=== PATIENT | female | born 1980 | race Caucasian/White ===

== ENCOUNTER 2019-07-30 11:09 | Emergency (ER) | payer OTHER, SELFPAY ==
--- NOTE | ~2019-07-30 | CT_ITS ---
EXAMINATION: CT abdomen pelvis wo con DATE: 07/30/2019 12:08 INDICATION: Right flank pain. Dysuria. History of renal stones. TECHNIQUE: Computed tomography (CT) of the abdomen and pelvis was performed without intravenous contr ast. The dose-length product was 221.69 mGy-cm. Automated exposure control and iterative reconstructi on technique were employed. COMPARISON: CT dated 06/14/2017 FINDINGS: Lung bases unremarkable. Heart size normal. No significant pleural or pericardial effusion. Fatty infiltration of the liver. Status post cholecystectomy. There is a 5 mm right UVJ stone with mi ld hydronephrosis. There are nonobstructing bilateral renal stones. The spleen, pancreas, adrenal gla nds are unremarkable. Nonobstructive bowel gas pattern. No abnormal pelvic masses or fluid collections. No free air or free fluid. Small fat-containing umbilical hernia. No significant vascular abnormality. No lymphadenopath y. No acute osseous abnormality. IMPRESSION: 1. 5 mm right UVJ stone with mild hydronephrosis. 2: Bilateral nephrolithiasis. 3: Hepatic steatosis. Reviewed, dictated and finalized at location A. RNMENT EMPLOYEE
[2019-07-30 11:11] VITALS: BP 149/67; PULSE 78; RESP 20; TEMP 36.4; O2SAT 100
[2019-07-30 11:37] LABS: Basophils Absolute Auto 0.1 K/mm3 (0.0-0.1); Basophils Percent Auto 0.7 % (0.2-1.2); Eosinophils Absolute Auto 0.1 K/mm3 (0-0.3); Eosinophils Percent Auto 1.9 % (0-4.4); Hematocrit 41.6 % (37.0-47.0); Hemoglobin 13.6 g/dL (12.0-15.0); Immature Granulocyte Absolute 0.03 K/mm3 (0.00-0.031); Immature Granulocyte Percent A 0.4 % (0-0.5); Lymphocytes Absolute Auto 2.49 K/mm3 (0.9-3.2); Lymphocytes Percent Auto 33.7 % (18.3-44.2); Mean Corpuscular HGB Conc 32.7 g/dl (32-36); Mean Corpuscular Volume 82.7 fl (80-100); Mean Platelet Volume 9.8 fl (7.4-10.4); Monocytes Absolute Auto 0.5 K/mm3 (0.1-0.6); Monocytes Percent Auto 6.9 % (2.6-8.5); Neutrophils Absolute Auto 4.2 K/mm3 (1.3-6.7); Neutrophils Percent Auto 56.4 % (45.5-73.1); Platelet Count Result 217 k/mm3 (150-375); Red Blood Count 5.03 M/mm3 (4.2-5.4); Red Cell Distribution Width 14.2 % (11.5-14.5); White Blood Count 7.4 K/mm3 (4.5-10.0)
[2019-07-30 11:46] LABS: Add Urine Microscopic? YES; Appearance Urine Clear (Clear); Bacteria Urine Trace /hpf; Bilirubin Urine Negative (Negative); Blood Urine 3+ (Negative); Color Urine Yellow (Yellow); Glucose Urine UA Negative (Negative); Ketones Urine Negative (Negative); Leukocyte Esterase Ur Negative LEU/UL (Negative); Mucus Urine Rare /lpf; Nitrate Urine Negative (Negative); Protein Urine Negative (Negative); Squamous Epithelial Cell Urine Occasional /hpf (Few); Urobilinogen Urine Negative mg/dL (<2.0); WBC Urine 0-3 /hpf
[2019-07-30 11:48] LABS: Blood Urea Nitrogen 10 mg/dL (7-17); Calcium 9.9 mg/dL (8.4-10.2); Carbon Dioxide 25 mmol/L (22-30); Chloride 103 mmol/L (98-107); Estimated CRCL calculation 138 ml/min; Estimated Glomerular Filt Rate > 60; Glucose 90 mg/dL (65-105); Potassium 3.7 mmol/L (3.4-5.0); Sodium 141 mmol/L (137-145)
--- NOTE | 2019-07-30 12:13 | ED.BACK ---
HPI - Back Pain/Injury General Chief Complaint: Urogenital-Female <Roslyn Kearney PA-C - Last Filed: 07/30/19 14:17> Stated Complaint: R flank pain <Roslyn Kearney PA-C - Last Filed: 07/30/19 14:17> Time Seen by Provider: 07/30/19 11:24 <Rolsyn Kearney PA-C - Last Filed: 07/30/19 14:17> Source: patient <Roslyn Kearney PA-C - Last Filed: 07/30/19 14:17> Mode of arrival: ambulatory <Roslyn Kearney PA-C - Last Filed: 07/30/19 14:17> Limitations: no limitations <Roslyn Kearney PA-C - Last Filed: 07/30/19 14:17> History of Present Illness HPI Narrative: This is a 38 year old female that presents to the ER for right flank pain since this morning. Reports sharp pain in the right flank. Reports since onset it has calmed down, but is still present. Reports urinary frequency and hesitancy. Denies fever, abdominal pain, vomiting, or hematuria. <Roslyn Kearney PA-C - Last Filed: 07/30/19 14:17> Related Data Allergies/Adverse Reactions: Allergies Allergy/AdvReac Type Severity Reaction Status Date / Time No Known Allergies Allergy Unverified 06/14/17 15:10 <Roslyn Kearney PA-C - Last Filed: 07/30/19 14:17> Review of Systems Review of Systems: Narrative: CONSTITUTIONAL: Denies fever GASTROINTESTINAL: Denies abdominal pain, nausea, vomiting GENITOURINARY: Reports dysuria. Denies hematuria. MUSCULOSKELETAL: Reports back pain <Roslyn Kearney PA-C - Last Filed: 07/30/19 14:17> All systems reviewed & are unremarkable except as noted in HPI and below <Roslyn Kearney PA-C - Last Filed: 07/30/19 14:17> [facility] Past Medical History Medical History: Medical History (Updated 07/30/19 @ 14:08 by Roslyn Kearney PA-C) History of anxiety <Roslyn Kearney PA-C - Last Filed: 07/30/19 14:17> Family History Family History: Family History (Updated 01/09/16 @ 14:18 by DOCTOR UNKNOWN) Mother Hypertension Family history of kidney stones Father Cerebrovascular accident Family history of type 2 diabetes mellitus Grandparent Cerebrovascular accident Family history of malignant neoplasm of breast Other Family history of allergic disorder Family history of malignant neoplasm <Roslyn Kearney PA-C - Last Filed: 07/30/19 14:17> Social History Social History: Social History Smoking status: Never smoker Alcohol intake: current <BERNADETTE Devine Last Filed: 07/30/19 14:17> Exam Narrative: Exam Narrative: GENERAL: Well-appearing, well-nourished, and in no acute distress. HEAD: Normocephalic, atraumatic. EYES: EOMI. CHEST: Clear to auscultation. No respiratory distress. No wheezes rales or rhonchi HEART: Regular rate and rhythm. No murmur heard. Normal peripheral pulses. ABDOMEN: Soft, nontender, nondistended, normal active bowel sounds. No CVA tenderness EXTREMITIES: Normal range of motion. No edema. SKIN: Warm, dry, no rash. NEURO: No focal deficits. Alert and oriented x3. PSYCH: Normal mood and affect <BERNADETTE Devine Last Filed: 07/30/19 14:17> Course Consultations Consultation #1: Spoke with urology about patient and work-up who came to the ED to see patient. Patient decided she would like to go home with pain control and follow-up outpatient <Roslyn Kearney PA-C - Last Filed: 07/30/19 14:17> Date: 07/30/19 <BERNADETTE Devine Last Filed: 07/30/19 14:17> Time: 14:16 <BERNADETTE Devine Last Filed: 07/30/19 14:17> Vital Signs Vital signs: Vital Signs Temperature 97.6 F 07/30/19 11:11 Pulse Rate 78 07/30/19 11:11 Respiratory Rate 20 07/30/19 11:11 Blood Pressure 149/67 H 07/30/19 11:11 Pulse Oximetry 100 07/30/19 11:11 Temperature 97.6 F 07/30/19 11:11 Pulse Rate 84 07/30/19 13:59 Respiratory Rate 17 07/30/19 13:59 Blood Pressure 135/84 07/30/19 13:59 Pulse Oximetry 98 07/30/19 13:59 <Roslyn Kearney PA-C - Last Filed: 07/30/19 14:17
[2019-07-30] MEDS: SODIUM CHLORIDE 0.9% IV 500 ML 999 ML IV CONT (12:38)
[2019-07-30 13:59] VITALS: BP 135/84; PULSE 84; RESP 17; O2SAT 98
== END 2019-07-30 14:30 | disposition home or self-care (01) ==
PROVIDERS: Emergency Provider General Practice; PCP Family Medicine
DX: N13.2 Hydronephrosis with renal and ureteral calculous obstruction (principal); K76.0 Fatty (change of) liver, not elsewhere classified
CPT/HCPCS: 36415; 74176; 80048; 81001; 81025; 85025; 96374; 99284; J0131; J7040

== ENCOUNTER 2019-08-02 13:06 | Outpatient (CLI) | payer OTHER, SELFPAY ==
--- NOTE | ~2019-08-02 | XR_ITS ---
EXAMINATION: XR abdomen/kub 1V INDICATION: Right ureteral stone TECHNIQUE: Supine views of the abdomen were obtained on 2 radiographs. COMPARISON: CT, 07/30/2019 FINDINGS: There is a 5 mm calcification of the right pelvis at the expected location of the right ure terovesicular junction corresponding to the stone described on the comparison CT. Phleboliths are not ed in the pelvis. Cholecystectomy clips are present in the right upper quadrant. There is a moderate volume of colonic stool. The bowel gas pattern is normal. IMPRESSION: 1. 5 mm calcification of the right pelvis at the expected location of the right ureterovesicular junc tion. Reviewed, dictated and finalized at location A. STRIPPER IMPRESSION: 1. 5 mm calcification of the right pelvis at the expected location of the right ureterovesicular junction.
== END 2019-08-02 13:07 | disposition home or self-care (01) ==
PROVIDERS: PCP Family Medicine; Visit Provider Urology
DX: N20.1 Calculus of ureter (principal)
CPT/HCPCS: 74018

== ENCOUNTER 2019-08-10 02:26 | Day surgery (SDC) | payer OTHER, SELFPAY ==
[2019-08-08 10:59] VITALS: BMI 29.0
--- NOTE | ~2019-08-10 | CT_ITS ---
EXAMINATION: CT abdomen pelvis wo con DATE: 08/10/2019 13:13 INDICATION: Right ureteral stone. TECHNIQUE: Computed tomography (CT) of the abdomen and pelvis was performed without intravenous contr ast. Automated exposure control and iterative reconstruction technique were employed. The dose-length product was 228.12 mGy-cm. COMPARISON: CT abdomen and pelvis 07/30/2019 FINDINGS: The visualized portions of the lung bases demonstrate mild atelectasis. No pleural effusion . The heart size is normal. No pericardial effusion. There is diffuse hepatic steatosis. There are ch anges of cholecystectomy. The spleen, pancreas, and adrenal glands are normal. There is a 3 mm stone in right kidney lower pole. There is a 3 mm stone in left kidney. The ureters and bladder are normal. There is diverticulosis of the colon without evidence of diverticulitis. There are no dilated loops of bowel. The appendix is not visualized. The inferior vena cava is duplicated. There are no patholog ically enlarged lymph nodes. There is no free intraperitoneal fluid. There is mild thoracic spondylos is. IMPRESSION: 1. Small bilateral nonobstructing kidney stones. 2. Diffuse hepatic steatosis. Reviewed, dictated and finalized at location A. E BLOCK ROLLER
--- NOTE | ~2019-08-10 | XR_ITS ---
EXAMINATION: XR abdomen/kub 1V DATE: 08/10/2019 12:57 INDICATION: Bladder stone. TECHNIQUE: A supine view of the abdomen was obtained. COMPARISON: Abdomen radiographs 08/02/2019, CT abdomen and pelvis 07/30/2019 FINDINGS: There are no dilated loops of bowel. There are phleboliths in the pelvis. The kidneys are o bscured by bowel. There is a 3 mm stone in right kidney lower pole. IMPRESSION: 1. 3 mm stone in right kidney lower pole. Reviewed, dictated and finalized at location A. ASSISTANT
--- NOTE | 2019-08-10 06:37 | WPDHPUPDATE1 ---
History and Physical Update Update Date/Time: 08/10/19 06:37 History and Physical has been reviewed, including an updated exam of the patient. There are NO changes in the patient's condition. Risks, benefits, and alternatives have been discussed and questions answered. Patient agrees to proceed with procedure.
--- NOTE | 2019-08-10 08:18 | WPDANESEPPF ---
Anes - Initial Pre Proc Eval Procedure: Operation Date: 08/10/19 13:30 Proposed Procedures p Cystoscopy, Right Ureteroscopy with Stone Extraction - Hasmukh Mcfarland MD Date/Time: 08/10/19 08:18 Surgeon: Hasmukh Mcfarland MD Pre Op Diagnosis: Right Ureteral Stone Patient Data Age: 38 Gender: F Height: 1.68 m Weight: 81.65 kg Allergies Allergy/AdvReac Type Severity Reaction Status Date / Time No Known Allergies Allergy Unverified 08/08/19 11:01 Home Medications Medication Instructions Recorded Confirmed Type hydrocodone-acetaminophen 1 tablet PO Q8H PRN #20 tablet 07/30/19 08/08/19 Rx ondansetron 4 mg PO Q8H PRN #10 tablet 07/30/19 08/08/19 Rx L.acid-L.casei-B.bif-B.jose alberto-FOS 1 cap PO DAILY 08/08/19 08/08/19 History [Probiotic Blend] cholecalciferol (vitamin D3) 6,000 mcg PO DAILY 08/08/19 08/08/19 History [Vitamin D3] 21-iron fu-folic acid 1 tablet PO DAILY 08/08/19 08/08/19 History [ Complete] sertraline 150 mg PO DAILY 08/08/19 08/08/19 History Patient hx anesthesia problems: none Family hx anesthesia problems: none PMFSH Past Medical History Medical History (Updated 08/10/19 @ 12:30 by Francisco Javier Lopez MD) History of anxiety Hypercholesterolemia Kidney stones, calcium oxalate Overweight (BMI 25.0-29.9) Family History Family History (Updated 01/09/16 @ 14:18 by DOCTOR UNKNOWN) Mother Hypertension Family history of kidney stones Father Cerebrovascular accident Family history of type 2 diabetes mellitus Grandparent Cerebrovascular accident Family history of malignant neoplasm of breast Other Family history of allergic disorder Family history of malignant neoplasm Social History Social History Smoking status: Never smoker Alcohol intake: current Anes - Eval Final PreProcedure Day of Procedure 08/10/19 08:18 Patient weight: overweight Heart: regular rate and rhythm Lungs: clear to auscultation and normal air movement Airway: Mallampati scale class II Neurological: alert and oriented Last oral intake: >/= 8 hours ASA classification: II Emergent: no Anesthetic plan: proceed Anesthesia type and monitoring: general LMA Informed Consent: The patient's anesthetic plan and its attendant risks and benefits were discussed with the patient/family/POA. Questions were solicited and answers provided to the satisfaction of the patient/family/POA.
[2019-08-10] MEDS: LACTATED RINGERS 1,000 ML 30 ML IV CONT (12:32)
[2019-08-10 12:54] VITALS: BP 108/55; PULSE 73; RESP 20; TEMP 37.2; O2SAT 96
--- NOTE | 2019-08-10 12:59 | SUR.PREOP ---
1250- dr. bhatti ordered a KUB in pre op. awaitng results
--- NOTE | 2019-08-10 13:30 | SUR.PREOP ---
1320- DR. RAMIREZ STATED PT CAN BE CANCELLED, CT SHOWED THAT PT HAS PASSED STONE. PT AND UPDATED PER DR. RAMIREZ. 1330- LT AC PIV DC'ED, CATH INTACT. PT UP TO GET DRESSED
== END 2019-08-10 13:42 | disposition home or self-care (01) ==
PROVIDERS: PCP Family Medicine; Visit Provider Urology
PROC: (CPT 52352; principal; 2019-08-10 13:30)
DX: N20.0 Calculus of kidney (principal); Z53.8 Procedure and treatment not carried out for other reasons
CPT/HCPCS: 74018; 74176; 99212; A9270; G0463; J2250; J3010; J7120

== ENCOUNTER 2020-01-05 10:51 | Outpatient (CLI) | payer OTHER, SELFPAY ==
--- NOTE | ~2020-01-05 | XR_ITS ---
EXAMINATION: XR abdomen/kub 1V DATE: 01/05/2020 11:09 INDICATION: Left flank pain. Hematuria. TECHNIQUE: A supine view of the abdomen on 2 radiographs was obtained. COMPARISON: CT abdomen and pelvis 08/10/2019 FINDINGS: There are no dilated loops of bowel. There is a 3 mm stone in right kidney lower pole. Surg ical clips in the right upper quadrant are likely from cholecystectomy. There are phleboliths in the pelvis. IMPRESSION: 1. 3 mm right kidney stone. Reviewed, dictated and finalized at location A. IMPRESSION: 1. 3 mm right kidney stone.
== END 2020-01-05 10:52 | disposition home or self-care (01) ==
LOC: ANHIMG 10:53
PROVIDERS: PCP Family Medicine; Visit Provider Urology
DX: N20.0 Calculus of kidney (principal)
CPT/HCPCS: 74018

== ENCOUNTER 2020-01-17 13:40 | Outpatient (CLI) | payer OTHER, SELFPAY ==
--- NOTE | ~2020-01-17 | XR_ITS ---
XR abdomen/kub 1V DATE: 01/17/2020 13:55 INDICATION: Gross hematuria TECHNIQUE: AP projection, 2 views COMPARISON: 01/05/2020 KUB FINDINGS: Surgical clips, right upper quadrant, consistent with cholecystectomy. A small calcification overlies the approximate lower pole of each kidney suggesting bilateral nonobst ructing kidney stones, corresponding to a small nonobstructing calculus of each kidney on 08/10/2019 CT abdomen pelvis examination. There is a transitional lumbosacral vertebra. IMPRESSION: Bilateral nonobstructing renal calculi Reviewed, dictated and finalized at Location A. Reviewed, dictated and finalized at location A.
--- NOTE | ~2020-01-17 | CT_ITS ---
EXAMINATION: CT abdomen pelvis wo/w con EXAM DATE: 01/17/2020 14:19 INDICATION: Gross hematuria. TECHNIQUE: Spiral CT of the abdomen and pelvis was performed without contrast. The patient was then injected with small bolus intravenous Omnipaque 350, followed by delay of approximately 10 minutes to allow collecting system to opacify. A post contrast scan abdomen and pelvis was performed during inj ection of remaining contrast. A total of 130 cc intravenous contrast was administered. The dose-anita th product (DLP) for this examination was 1778.46 mGy-cm. The exposure was tailored according to pat ient size (auto mA exposure control), and iterative reconstruction (ASIR) was used as additional dose reduction technique. Comparison is made to prior examination from 08/10/2019. FINDINGS: There is 4 mm stone in the right inferior calyces, and a 3 mm stone in the left mid calyces . There are no ureteral stones. The kidneys enhance symmetrically. There are no suspicious renal le sions. The calyces and opacified portions of ureters are unremarkable, without filling defects or fo kimberli suspicious strictures. The bladder is unremarkable. The uterus and ovaries are unremarkable, no adnexal mass. There is hepatic steatosis without suspicious focal lesion identified. Spleen, adrenal glands, pancre as are unremarkable. There are cholecystectomy clips. There is no retroperitoneal or pelvic lymphad enopathy. 22 The appendix is not positively visualized. There is no pericecal inflammatory change to suggest appe ndicitis. The stomach and small bowel are unremarkable. There is expected amount of colonic stool. No free intraperitoneal gas. The heart is normal in size. There are no pericardial or pleural e ffusions. Left basilar granuloma unchanged. The bones are unremarkable. IMPRESSION: 1. Small stone in each kidney. 2. Hepatic steatosis. Reviewed, dictated and finalized at location A.
== END 2020-01-17 13:41 | disposition home or self-care (01) ==
LOC: ANHIMG 13:41
PROVIDERS: PCP Family Medicine; Visit Provider Urology
DX: R31.0 Gross hematuria (principal); K76.0 Fatty (change of) liver, not elsewhere classified; N20.0 Calculus of kidney
CPT/HCPCS: 74018; 74178; Q9967

== ENCOUNTER 2020-03-30 08:51 | Emergency (ER) | payer OTHER, SELFPAY ==
--- NOTE | ~2020-03-30 | CT_ITS ---
EXAMINATION: CT abd pelvis lumbar wo con DATE: 03/30/2020 09:57 INDICATION: Low back pain and flank pain. Nephrolithiasis. TECHNIQUE: Computed tomography (CT) of the abdomen, pelvis and lumbar spine was performed without int ravenous contrast. Automated exposure control and iterative reconstruction technique were employed. T he dose-length product was 590.49 mGy-cm. COMPARISON: 01/17/2020 FINDINGS: Lung bases are clear. Heart size is normal. No pericardial or pleural effusion. Decreased attenuation of the blood pool relative to myocardium suggesting anemia. Diffuse hepatic steatosis. Cholecystecto my clips the gallbladder fossa. Borderline splenomegaly measuring 13.0 cm. Pancreas and bilateral adr enal glands are normal. Bilateral nephrolithiasis with 2 stones in the right kidney the larger measur ing 4 mm. Obstructing 3-4 mm stone at the left ureteropelvic junction with mild left hydronephrosis. Several unchanged phleboliths in the pelvis. Bladder is normal. Anteverted uterus and bilateral adnex a are normal. Tampon within the vaginal vault. No abnormal bowel wall thickening or obstruction. The appendix is not visualized. No pericecal inflammatory change to suggest acute appendicitis. No free i ntraperitoneal gas or fluid. No pathologically enlarged abdominal or pelvic lymphadenopathy. Mild low er thoracic spondylosis. IMPRESSION: 1. Lateral nephrolithiasis with obstructing 3-4 mm stone at the left ureteropelvic junction with mild left hydronephrosis. 2. Diffuse hepatic steatosis. Reviewed, dictated and finalized at location A. IMPRESSION: 1. Lateral nephrolithiasis with obstructing 3-4 mm stone at the left ureteropel lawanda junction with mild left hydronephrosis. 2. Diffuse hepatic steatosis.
[2020-03-30 09:09] VITALS: BP 134/76; PULSE 74; RESP 16; TEMP 36.6; O2SAT 98
[2020-03-30 09:27] LABS: Add Urine Microscopic? YES; Appearance Urine Sl Cloudy (Clear); Bilirubin Urine Negative (Negative); Blood Urine 3+ (Negative); Color Urine Yellow (Yellow); Glucose Urine UA Negative (Negative); Ketones Urine Negative (Negative); Leukocyte Esterase Ur Negative (Negative); Nitrate Urine Negative (Negative); Protein Urine 1+ (Negative); Specific Grav Ur >= 1.030 (1.010-1.020); Urobilinogen Urine 0.2 mg/dL (0.2-1.0); pH Urine 5.5 (5.0-8.0)
[2020-03-30 09:28] LABS: Pregnancy On Board Control Positive; Urine Pregnancy Test Negative
[2020-03-30 09:31] LABS: Bacteria Urine 1+ /hpf; RBC Urine 21-50 /hpf (0-2); Squamous Epithelial Cell Urine Few /hpf (Few); WBC Urine None seen /hpf (0-3)
[2020-03-30 09:32] LABS: Mucus Urine Moderate /lpf
[2020-03-30] MEDS: KETOROLAC 30 MG/ML VIAL (*BKC) IV PUSH (09:36)
[2020-03-30] MEDS: ONDANSETRON INJ 4 MG/2 ML VIAL IV PUSH (09:36)
[2020-03-30] MEDS: SODIUM CHLORIDE 0.9% IV 1,000 ML 999 ML IV CONT (09:37)
[2020-03-30 09:43] LABS: Hematocrit 38.8 % (35.0-49.0); Hemoglobin 12.8 g/dL (12.0-15.0); Mean Corpuscular Hemoglobin 27.8 pg (27.0-31.0); Mean Corpuscular Volume 84.2 fL (78.0-102.0); Mean Platelet Volume 9.5 fl (9.2-11.8); Platelet Count Result 182 K/mm3 (150-420); Red Blood Count 4.61 M/mm3 (4.20-5.40); Red Cell Distribution Width 13.2 % (11.6-14.4); White Blood Count 8.4 K/mm3 (4.8-10.8)
[2020-03-30 10:03] LABS: Alanine Aminotransferase 44 U/L (14-59); Albumin Level 3.9 g/dL (3.4-5.0); Alkaline Phosphatase 71 U/L (46-116); Anion Gap 11 mmol/L (8-16); Aspartate Amino Transferase 26 U/L (15-37); Bilirubin,Total 0.5 mg/dL (0.00-1.00); Blood Urea Nitrogen 9 mg/dL (7-18); Calcium 8.6 mg/dL (8.5-10.1); Carbon Dioxide 25 mmol/L (21-32); Chloride 104 mmol/L (98-108); Estimated CRCL calculation 88 ml/min; Estimated Glomerular Filt Rate > 60; Glucose 134 mg/dL (70-99); Osmolality Calculated 290 mOsm/kg (285-295); Potassium 3.2 mmol/L (3.5-5.1); Sodium 140 mmol/L (136-145); Total Protein 7.3 g/dL (6.4-8.2)
--- NOTE | 2020-03-30 10:23 | ED.GENADULT ---
HPI - General Adult General Chief complaint: Unspecified Stated complaint: low back pain Source: patient Mode of arrival: ambulatory Limitations: no limitations History of Present Illness HPI narrative: This is a 39-year-old female presents with left flank pain radiating into her left groin area, patient did have a fall 2 or 3 days ago and has some mild swelling in her left lower back area, but currently is having a 6/10 left flank pain with no dysuria with some hesitancy and currently no hematuria no fever chills. Patient has a history of kidney stones, has seen urologist in the past and the stones were not large enough for any further intervention at that time. Patient does have some nausea with no episodes of vomiting does have a tender low left flank pain with some no diarrhea constipation no chest pain no shortness of breath. Onset (ago): hour(s) Location: left Radiation: back Severity: moderate Severity scale (1-10): 6 Quality: aching Relieving factors: immobilization Exacerbating factors: movement Associated symptoms: nausea/vomiting Treatments prior to arrival: NSAID Related Data Home Medications Medication Instructions Recorded Confirmed Complete 1 tablet PO DAILY 08/08/19 03/30/20 Probiotic Blend 1 cap PO DAILY 08/08/19 03/30/20 cholecalciferol (vitamin D3) 6,000 mcg PO DAILY 08/08/19 03/30/20 [Vitamin D3] sertraline [Zoloft] 150 mg PO DAILY 08/08/19 03/30/20 Allergies Allergy/AdvReac Type Severity Reaction Status Date / Time No Known Allergies Allergy Unverified 08/08/19 11:01 Review of Systems Review of Systems: All systems reviewed & are unremarkable except as noted in HPI and below PMFSH Past Medical History Medical History History of anxiety Hypercholesterolemia Kidney stones, calcium oxalate Overweight (BMI 25.0-29.9) Family History Family History Mother Hypertension Family history of kidney stones Father Cerebrovascular accident Family history of type 2 diabetes mellitus Grandparent Cerebrovascular accident Family history of malignant neoplasm of breast Other Family history of allergic disorder Family history of malignant neoplasm Social History Social History Smoking status: Never smoker Alcohol intake: current Gender identity (if verbalized by the patient): Female Exam Const: General: cooperative, healthy appearing and no acute distress HENMT: Head: normal to inspection Ears: hearing grossly normal bilaterally Throat: posterior oropharynx normal Eyes: General: appearance normal, both eyes and all related structures Eyelids: eyelids normal Conjunctivae: conjunctivae normal Neck: Neck: no JVD Lymphatic: no lymphadenopathy noted Resp: Effort & Inspection: normal respiratory effort and able to speak in complete sentences Auscultation: clear to auscultation bilaterally Cardio: Jugular venous distension: no JVD Palpation: normal PMI Rate: regular rate Rhythm: regular rhythm Heart sounds: S1 normal heart sound present and S2 normal heart sound present GI: Inspection: normal to inspection Back/Spine/Pelvis: Back: CVA tenderness ( Left flank tenderness with palpation) Skin: General skin exam: normal color and no rashes or lesions noted Extrem: General: normal to inspection, full ROM and capillary refill normal Psych: Appearance: grossly normal and well kempt Mental Status: mental status grossly normal Speech and movement: Normal speech and movement present Course Course Emergency Course: patient received IV Toradol and IV Zofran and rates her pain at a lower level at about a 2/10 feels more comfortable and explained that there is a 3 to 4 mm stone at the UVJ on the left and will discharge with home medications and discharge medications with advice to follow-up with her urologis
[2020-03-30 10:30] VITALS: BP 130/70; PULSE 70; RESP 18; TEMP 36.6; O2SAT 99
== END 2020-03-30 10:42 | disposition home or self-care (01) ==
PROVIDERS: Emergency Provider Emergency Medicine; PCP Family Medicine
DX: N20.1 Calculus of ureter (principal)
CPT/HCPCS: 36415; 72133; 74176; 80053; 81001; 81025; 85027; 96361; 96374; 96375; 99283; 99284; J1885; J2405; J7030

== ENCOUNTER 2021-01-15 13:59 | Emergency (ER) | payer MEDICAID, SELFPAY ==
--- NOTE | ~2021-01-15 | XR_ITS ---
EXAMINATION: CT abdomen pelvis wo con, XR abdomen/kub 1V DATE: 01/15/2021 15:32 INDICATION: Right-sided flank pain. Urolithiasis. TECHNIQUE: 1. Computed tomography (CT) of the abdomen and pelvis was performed without intravenous contrast. Aut omated exposure control and iterative reconstruction technique were employed. The dose-length product was 242.05 mGy-cm. 2. AP view of the abdomen and pelvis was obtained on 2 radiographs. COMPARISON: 03/30/2020 FINDINGS: CT: Stable appearance of a chronic small V-shaped nodule/cluster of nodules in the posterior basilar segm ent of the left lower lobe which can be seen dating back to 06/14/2017 Memo skull chronic infection and potentially a chronic mucus impacted bronchus. Heart size normal. No pericardial or pleural effusion. Diffuse hepatic steatosis. Cholecystectomy clips the gallbladder fossa. Spleen, pancreas and bilater al adrenal glands are normal. 5 x 3 mm at least partially obstructing stone in the mid right ureter a t the level of L5-S1 with mild right hydroureteronephrosis. No other evident urolithiasis either on t he right or in the normal left kidney and ureter . Bladder is normal. Uterus and bilateral adnexa are unremarkable with bilateral ovarian follicles the largest on the right measuring 1.4 cm. No free int raperitoneal gas or fluid. No pathologically enlarged abdominal or pelvic lymphadenopathy. Mild lower thoracic spondylosis. KUB: The mid right ureteral stone can be seen projecting over the right sacral ala slightly inferolateral to the level of the L5-S1 disc space. There are several phleboliths in the pelvis. Normal bowel gas p attern. Cholecystectomy clips in the right upper quadrant. IMPRESSION: 1. At least partially obstructing 5 x 3 mm right ureteral stone with mild right hydroureteronephrosis . 2. Diffuse hepatic steatosis. Reviewed, dictated and finalized at location A. IMPRESSION: 1. At least partially obstructing 5 x 3 mm right ureteral stone with mild right hydroureteronephrosis. 2. Diffuse hepatic steatosis.
--- NOTE | 2021-01-15 14:10 | ED.ABDPAIN ---
HPI - Abdominal Pain General Chief Complaint: Urogenital-Female Stated Complaint: Kidney Stone Time Seen by Provider: 01/15/21 14:14 Source: patient Mode of arrival: ambulatory Limitations: no limitations History of Present Illness HPI narrative: 40-year-old woman with history kidney stones comes in today complaining of right groin pain this started earlier today. Patient states that she has had nausea but no vomiting, fever, dysuria, hematuria. Her last episode was approximately 3 months ago. She has had multiple episodes. MD elicited complaint: abdominal pain Pertinent past history: kidney stones Onset (ago): hour(s) Pain Consistency: constant Location: RLQ Quality: sharp Migration to: no migration Exacerbating factors: nothing Relieving factors: nothing Associated symptoms: nausea Related Data Home Medications Medication Instructions Recorded Confirmed Complete 1 tablet PO DAILY 08/08/19 01/15/21 Probiotic Blend 1 cap PO DAILY 08/08/19 01/15/21 cholecalciferol (vitamin D3) 6,000 mcg PO DAILY 08/08/19 01/15/21 [Vitamin D3] sertraline [Zoloft] 150 mg PO DAILY 08/08/19 01/15/21 Allergies Allergy/AdvReac Type Severity Reaction Status Date / Time No Known Allergies Allergy Unverified 01/15/21 15:02 Review of Systems Review of Systems: All systems reviewed & are unremarkable except as noted in HPI and below Constitutional: Constitutional: Denies chills and Denies fever(s) Eyes: Eyes: Denies change in vision ENT: Denies nasal congestion and Denies sore throat Cardiovascular: Cardiovascular: Denies chest pain and Denies radiating jaw, neck or arm pain Respiratory: Respiratory: Denies cough, Denies dyspnea and Denies wheezing Gastrointestinal: Gastrointestinal: Reports abdominal pain, Denies diarrhea, Reports nausea and Denies vomiting Genitourinary: Genitourinary: Denies hematuria, Denies nocturia and Denies dysuria Musculoskeletal: Musculoskeletal: Denies back pain, Denies arthralgias and Denies joint swelling Integumentary/Breasts: Skin/Breast: Denies pruritus, Denies erythema and Denies rash Neurologic: Denies dizziness, Denies syncope, Denies headache(s) and Denies focal weakness Hematologic/Lymphatic: Hematologic/Lymphatic: Denies easy bleeding and Denies easy bruising Allergic/Immunologic: Allergic/Immunologic: Denies lip swelling and Denies throat swelling [facility] Past Medical History Medical History History of anxiety Hypercholesterolemia Kidney stones, calcium oxalate Overweight (BMI 25.0-29.9) Surgical History Surgical History History of History of mandibular surgery History of shoulder surgery Hx laparoscopic cholecystectomy S/P appendectomy Family History Family History Mother Hypertension Family history of kidney stones Father Cerebrovascular accident Family history of type 2 diabetes mellitus Grandparent Cerebrovascular accident Family history of malignant neoplasm of breast Other Family history of allergic disorder Family history of malignant neoplasm Social History Social History Smoking status: Never smoker Alcohol intake: current Gender identity (if verbalized by the patient): Female Sexual Orientation (if Verbalized by the Patient): Straight or Heterosexual Exam Const: General: healthy appearing and alert Orientation/consciousness: patient oriented x3 Limitations: no limitations Other: Moderate acute distress HENMT: Head: normal to inspection Face and sinus: normal facial exam Eyes: Conjunctivae: conjunctivae normal Pupils: Equal, round and reactive pupils present EOM: EOMs intact bilaterally Resp: Effort & Inspection: normal respiratory effort and not labored Auscultation: clear to auscultation b
[2021-01-15 14:36] LABS: Basophils Absolute Auto 0.04 K/mm3 (0.00-0.10); Basophils Percent Auto 0.5 % (0.0-1.0); Eosinophils Absolute Auto 0.17 K/mm3 (0.02-0.50); Hematocrit 40.1 % (35.0-49.0); Hemoglobin 13.3 g/dL (12.0-15.0); Immature Granulocyte Absolute 0.04 K/mm3 (0.00-0.00); Immature Granulocyte Percent A 0.5 % (0.0-0.0); Lymphocytes Absolute Auto 2.64 K/mm3 (1.10-4.50); Lymphocytes Percent Auto 31.7 % (18.0-42.0); Mean Corpuscular HGB Conc 33.2 g/dL (32.0-36.0); Mean Corpuscular Hemoglobin 28.2 pg (27.0-31.0); Mean Platelet Volume 9.5 fl (9.2-11.8); Monocytes Absolute Auto 0.56 K/mm3 (0.10-0.90); Monocytes Percent Auto 6.7 % (2.0-11.0); Neutrophils Absolute Auto 4.9 K/mm3 (1.7-7.2); Neutrophils Percent Auto 58.6 % (50.0-70.0); Platelet Count Result 248 K/mm3 (150-420); Red Blood Count 4.72 M/mm3 (4.20-5.40); Red Cell Distribution Width 13.7 % (11.6-14.4); White Blood Count 8.3 K/mm3 (4.8-10.8)
[2021-01-15 14:43] LABS: Add Urine Microscopic? YES; Appearance Urine Clear (Clear); Bilirubin Urine Negative (Negative); Blood Urine 3+ (Negative); Color Urine Light Yellow (Yellow); Glucose Urine UA Negative (Negative); Ketones Urine Negative (Negative); Leukocyte Esterase Ur Negative (Negative); Nitrate Urine Negative (Negative); Protein Urine Negative (Negative); Urine Pregnancy Test Negative; Urobilinogen Urine 0.2 mg/dL (0.2-1.0)
[2021-01-15 14:44] LABS: Pregnancy On Board Control Positive
[2021-01-15] MEDS: TAMSULOSIN HCL 0.4 MG CAPSULE PO (14:45)
[2021-01-15 14:50] LABS: Bacteria Urine Trace /hpf; RBC Urine 51-75 /hpf (0-2); Squamous Epithelial Cell Urine Few /hpf (Few); WBC Urine None seen /hpf (0-3)
[2021-01-15 14:54] LABS: Alanine Aminotransferase 50 U/L (14-59); Albumin Level 4.3 g/dL (3.4-5.0); Alkaline Phosphatase 79 U/L (46-116); Anion Gap 11 mmol/L (8-16); Aspartate Amino Transferase 19 U/L (15-37); Bilirubin,Total 0.4 mg/dL (0.00-1.00); Blood Urea Nitrogen 9 mg/dL (7-18); Calcium 9.3 mg/dL (8.5-10.1); Carbon Dioxide 27 mmol/L (21-32); Chloride 103 mmol/L (98-108); Estimated Glomerular Filt Rate > 60; Glucose 115 mg/dL (70-99); Osmolality Calculated 291 mOsm/kg (285-295); Potassium 3.8 mmol/L (3.5-5.1); Sodium 141 mmol/L (136-145); Total Protein 8.1 g/dL (6.4-8.2)
[2021-01-15] MEDS: SODIUM CHLORIDE 0.9% IV 500 ML 999 ML IV CONT (14:56)
[2021-01-15] MEDS: ONDANSETRON INJ 4 MG/2 ML VIAL IV PUSH (14:56)
[2021-01-15 14:57] VITALS: BP 129/80; PULSE 66; RESP 20; TEMP 36.8; O2SAT 98
[2021-01-15] MEDS: KETOROLAC 30 MG/ML VIAL (*BKC) IV PUSH (14:57)
[2021-01-15 16:04] VITALS: BP 132/82; PULSE 73; RESP 20; TEMP 36.6; O2SAT 98
== END 2021-01-15 16:05 | disposition home or self-care (01) ==
PROVIDERS: Emergency Provider Emergency Medicine; PCP Family Medicine
DX: N20.1 Calculus of ureter (principal)
CPT/HCPCS: 36415; 74018; 74176; 80053; 81001; 81025; 85025; 96361; 96374; 96375; 99283; 99284; A9270; J1885; J2405; J7040

== ENCOUNTER 2021-02-04 16:04 | Emergency (ER) | payer MEDICAID, SELFPAY ==
--- NOTE | ~2021-02-04 | CT_ITS ---
EXAMINATION: CT abdomen pelvis wo con DATE: 02/04/2021 21:47 INDICATION: Right lower quadrant abdominal pain. TECHNIQUE: Computed tomography (CT) of the abdomen and pelvis was performed without intravenous contr ast. Automated exposure control and iterative reconstruction technique were employed. The dose-length product was 225.05 mGy-cm. COMPARISON: CT abdomen and pelvis 01/15/2021, 06/14/2017 FINDINGS: The visualized portions of the lung bases demonstrate mild atelectasis. There is a chronic 9 mm nodule in left lower lobe, consistent with granulomatous disease. No pleural effusion. The heart size is normal. No pericardial effusion. There is diffuse hepatic steatosis. There are changes of ch olecystectomy. The spleen, pancreas, and adrenal glands are normal. There is mild right hydronephrosi s and hydroureter. There is a 5 mm stone at right ureterovesicular junction. Left kidney is normal. T here are no dilated loops of bowel. The appendix is not visualized. 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 There are no pathologically enlarged lymph nodes. There is no free intraperitoneal fluid. There is an umbilical hernia containing fat. There is mild thoracolumbar spondylosis. IMPRESSION: 1. 5 mm stone at right ureterovesicular junction with mild right hydronephrosis and hydroureter. Reviewed, dictated and finalized at location A.
[2021-02-04 16:30] VITALS: BP 134/83; PULSE 90; RESP 20; TEMP 37.2; O2SAT 99
[2021-02-04 16:55] LABS: Basophils Absolute Auto 0.1 K/mm3 (0.0-0.1); Basophils Percent Auto 0.7 % (0.2-1.2); Eosinophils Absolute Auto 0.2 K/mm3 (0-0.3); Eosinophils Percent Auto 1.9 % (0-4.4); Hematocrit 39.5 % (37.0-47.0); Hemoglobin 13.1 g/dL (12.0-15.0); Immature Granulocyte Absolute 0.03 K/mm3 (0.00-0.031); Immature Granulocyte Percent A 0.3 % (0-0.5); Lymphocytes Absolute Auto 3.11 K/mm3 (0.9-3.2); Mean Corpuscular HGB Conc 33.2 g/dl (32-36); Mean Corpuscular Hemoglobin 28.4 pg (26-34); Mean Corpuscular Volume 85.5 fl (80-100); Mean Platelet Volume 9.8 fl (7.4-10.4); Monocytes Absolute Auto 0.6 K/mm3 (0.1-0.6); Monocytes Percent Auto 7.4 % (2.6-8.5); Neutrophils Absolute Auto 4.6 K/mm3 (1.3-6.7); Neutrophils Percent Auto 53.7 % (45.5-73.1); Platelet Count Result 227 k/mm3 (150-375); Red Blood Count 4.62 M/mm3 (4.2-5.4); Red Cell Distribution Width 13.6 % (11.5-14.5); White Blood Count 8.6 K/mm3 (4.5-10.0)
[2021-02-04 16:57] LABS: Add Urine Microscopic? NO; Appearance Urine Clear (Clear); Bilirubin Urine Negative (Negative); Blood Urine Negative (Negative); Color Urine Straw (Yellow); Glucose Urine UA Negative (Negative); Ketones Urine Negative (Negative); Leukocyte Esterase Ur Negative LEU/UL (Negative); Nitrate Urine Negative (Negative); Protein Urine Negative (Negative); Specific Grav Ur 1.006 (1.001-1.035); Urobilinogen Urine Negative mg/dL (<2.0)
[2021-02-04 17:09] LABS: Alanine Aminotransferase 39 U/L (4-35); Albumin Level 4.9 g/dL (3.5-5.1); Alkaline Phosphatase 69 U/L (38-126); Anion Gap 10 mmol/L (8-16); Aspartate Amino Transferase 29 U/L (14-36); Bilirubin,Total 0.4 mg/dL (0.2-1.3); Blood Urea Nitrogen 11 mg/dL (7-17); Calcium 10.2 mg/dL (8.4-10.2); Carbon Dioxide 25 mmol/L (22-30); Chloride 106 mmol/L (98-107); Estimated CRCL calculation 115 ml/min; Estimated Glomerular Filt Rate > 60; Glucose 97 mg/dL (65-110); Lipase 63 U/L (23-300); Potassium 4.5 mmol/L (3.4-5.0); Sodium 141 mmol/L (137-145)
[2021-02-04 21:21] VITALS: BP 125/85; PULSE 76; RESP 16; O2SAT 97
--- NOTE | 2021-02-04 21:32 | ED.ABDPAIN ---
HPI - Abdominal Pain General Chief Complaint: Abdominal Pain Stated Complaint: lower abd pain Time Seen by Provider: 02/04/21 21:09 History of Present Illness HPI narrative: Pt is a 40 y/o CF who p/w RLQ pain starting at 9a. Feels like previous kidney stones. Has used flomax today w/o relief. Has urinary frequency/urgency/dysuria. No flank pain, fevers, or chills. On Patient was passing a 5 mm stone on the right side. She does not think she ever passed it. Related Data Home Medications Medication Instructions Recorded Confirmed Complete 1 tablet PO DAILY 08/08/19 01/15/21 Probiotic Blend 1 cap PO DAILY 08/08/19 01/15/21 cholecalciferol (vitamin D3) 6,000 mcg PO DAILY 08/08/19 01/15/21 [Vitamin D3] sertraline [Zoloft] 150 mg PO DAILY 08/08/19 01/15/21 Allergies Allergy/AdvReac Type Severity Reaction Status Date / Time No Known Allergies Allergy Verified 02/04/21 21:26 Review of Systems Review of Systems: All systems reviewed & are unremarkable except as noted in HPI and below Constitutional: Constitutional: Denies chills, Denies fever(s) and Denies weakness Cardiovascular: Cardiovascular: Denies chest pain and Denies radiating jaw, neck or arm pain Respiratory: Respiratory: Denies cough, Denies dyspnea and Denies wheezing Gastrointestinal: Gastrointestinal: Reports abdominal pain, Denies diarrhea, Denies nausea and Denies vomiting Genitourinary: Genitourinary: Denies hematuria, Reports nocturia, Reports dysuria and Denies flank pain PMFSH Past Medical History Medical History History of anxiety Hypercholesterolemia Kidney stones, calcium oxalate Overweight (BMI 25.0-29.9) Surgical History Surgical History History of History of mandibular surgery History of shoulder surgery Hx laparoscopic cholecystectomy S/P appendectomy Family History Family History Mother Hypertension Family history of kidney stones Father Cerebrovascular accident Family history of type 2 diabetes mellitus Grandparent Cerebrovascular accident Family history of malignant neoplasm of breast Other Family history of allergic disorder Family history of malignant neoplasm Social History Social History Smoking status: Never smoker Alcohol intake: current Gender identity (if verbalized by the patient): Female Sexual Orientation (if Verbalized by the Patient): Straight or Heterosexual Exam Narrative: GENERAL: Well-appearing, well-nourished, and in no acute distress. HEAD: Normocephalic, atraumatic. CHEST: Clear to auscultation. No respiratory distress. HEART: Regular rate and rhythm. Normal peripheral pulses. ABDOMEN: Soft, mild suprapubic tenderness w/o guarding, nondistended. EXTREMITIES: Normal range of motion. No edema. SKIN: Warm, dry, no rash. NEURO: Alert and oriented x3. PSYCH: Normal mood and affect. Course Course Emergency Course: Discussed case with urology on-call. Recommends outpatient treatment and he will contact Dr. Mcfarland the patient's primary neurologist to likely schedule extraction in 2 days if she does not pass the stone. Pain improved with Toradol. Discharge home. Vital Signs Vital signs: Vital Signs Temperature 98.9 F 02/04/21 16:30 Pulse Rate 90 02/04/21 16:30 Respiratory Rate 20 02/04/21 16:30 Blood Pressure 134/83 02/04/21 16:30 Pulse Oximetry 99 02/04/21 16:30 Temperature 98.9 F 02/04/21 16:30 Pulse Rate 76 02/04/21 21:21 Respiratory Rate 16 02/04/21 21:21 Blood Pressure 125/85 02/04/21 21:21 Pulse Oximetry 97 02/04/21 21:21 MDM - Abdominal Pain Lab Data Result diagrams: 02/04/21 16:39 02/04/21 16:39 Labs: Lab Results 02/04/21 02/04/21 02/04/21 Range
[2021-02-04] MEDS: KETOROLAC 30 MG/ML VIAL (*BKC) IV PUSH (21:54)
[2021-02-04] MEDS: SODIUM CHLORIDE 0.9% IV 1,000 ML 999 ML IV CONT (21:55)
== END 2021-02-04 23:06 | disposition home or self-care (01) ==
PROVIDERS: Emergency Medicine; Emergency Provider Emergency Medicine; PCP Family Medicine
DX: N20.1 Calculus of ureter (principal); E78.00 Pure hypercholesterolemia, unspecified; Z87.442 Personal history of urinary calculi
CPT/HCPCS: 36415; 74176; 80053; 81003; 81025; 83690; 85025; 96361; 96374; 99284; J1885; J7030

== ENCOUNTER 2021-02-06 00:57 | Day surgery (SDC) | payer MEDICAID, SELFPAY ==
[2021-02-05 15:12] VITALS: BMI 29.0
[2021-02-06] VITALS (7 sets, daily range): BP systolic 132–142; BP diastolic 70–93; PULSE 66–81; RESP 15–16; TEMP 36.2–36.5; O2SAT 95–100
--- NOTE | ~2021-02-06 | XR_ITS ---
EXAMINATION: XR fluoroscopy no charge EXAM DATE: 02/06/2021 14:58 INDICATION: Stone extraction. TECHNIQUE: Fluoroscopy used during right ureteral stone extraction performed by Dr. Hasmukh rodriguez MD, urologist. The radiologist Maxwell Garza M.D. dictating this report of the image(s) available w as not present for the procedure. Total fluoroscopic time of 14 seconds. The DAP for this procedure was 202 radcm2. A total of 5 images sent to PACS from the exam. There is no prior study for compar mee. FINDINGS: Image demonstrates retrograde cannulation of the right ureter. Correlate with procedure n ote. IMPRESSION: Fluoroscopy used during right ureteral stone extraction. Reviewed, dictated and finalized at location B.
--- NOTE | 2021-02-06 06:48 | PM.HPGS ---
History of Present Illness History of Present Illness Consent: Risks, benefits, and alternatives have been discussed and questions answered. Patient agrees to proceed with procedure. Chief complaint: right kidney stone Narrative: Huong Weems is a 40 year old female with a known history of recurring urolithiasis who was in the ER earlier this week with right renal colic. Imaging demonstrated a 5 mm obstructing right distal ureteral calculus. Attempts been made outpatient medical expulsive therapy but she continues to have pain and now presents for endoscopic stone extraction. She is aware the risk including, but not limited to, ureteral injury, persistent stone fragments and possible need for stent placement. Review of Systems Cardiovascular: Cardiovascular: Denies chest pain, Denies lightheadedness, Denies palpitations and Denies dyspnea Respiratory: Respiratory: Denies dyspnea Gastrointestinal: Gastrointestinal: Denies diarrhea, Denies nausea and Denies vomiting Genitourinary: Genitourinary: Denies hematuria and Denies dysuria Endocrine: Endocrine: Denies palpitations PMFSH Past Medical History Medical History History of anxiety Hypercholesterolemia Kidney stones, calcium oxalate Overweight (BMI 25.0-29.9) Surgical History Surgical History History of History of mandibular surgery History of shoulder surgery Hx laparoscopic cholecystectomy S/P appendectomy Family History Family History Mother Hypertension Family history of kidney stones Father Cerebrovascular accident Family history of type 2 diabetes mellitus Grandparent Cerebrovascular accident Family history of malignant neoplasm of breast Other Family history of allergic disorder Family history of malignant neoplasm Social History Social History Smoking status: Never smoker Alcohol intake: current Living arrangements: with family Gender identity (if verbalized by the patient): Female Sexual Orientation (if Verbalized by the Patient): Straight or Heterosexual Spiritual care concerns: No Meds Home Medications and Allergies Home Medications Medication Instructions Recorded Confirmed Type Complete 1 tablet PO DAILY 08/08/19 02/05/21 History Probiotic Blend 1 cap PO DAILY 08/08/19 02/05/21 History cholecalciferol (vitamin D3) 6,000 mcg PO DAILY 08/08/19 02/05/21 History [Vitamin D3] sertraline [Zoloft] 150 mg PO DAILY 08/08/19 02/05/21 History tamsulosin 0.4 mg PO HS #20 cap 01/15/21 02/05/21 Rx hydrocodone-acetaminophen 1 tablet PO Q6H PRN #12 tablet 02/04/21 02/05/21 Rx promethazine 25 mg PO Q6H PRN #12 tablet 02/04/21 02/05/21 Rx ascorbic acid (vitamin C) [Vitamin 500 mg PO DAILY 02/05/21 02/05/21 History C] cetirizine [Zyrtec] 10 mg PO DAILY 02/05/21 02/05/21 History zinc 50 mg PO DAILY 02/05/21 02/05/21 History Allergies Allergy/AdvReac Type Severity Reaction Status Date / Time No Known Allergies Allergy Verified 02/05/21 15:08 Exam Const: General: no acute distress Resp: Effort & Inspection: normal respiratory effort GI: Inspection: non-distended GI Palp: No abdominal tenderness and No Guarding due to palpation present (GI) Auscultation: normal bowel sounds
--- NOTE | 2021-02-06 06:49 | WPDHPUPDATE1 ---
History and Physical Update Update Date/Time: 02/06/21 06:49 Assessment: Right distal ureteral calculus Plan: cystoscopy, right ureteroscopy with stone extraction, possible retrograde pyelography, possible laser lithotripsy and ureteral stent placement. History and Physical has been reviewed, including an updated exam of the patient. There are NO changes in the patient's condition. Risks, benefits, and alternatives have been discussed and questions answered. Patient agrees to proceed with procedure.
[2021-02-06] MEDS: LACTATED RINGERS 1,000 ML 30 ML IV CONT ×2 (11:42→15:05)
[2021-02-06] MEDS: fentaNYL CITRATE INJ (*CRX) 100 MCG/2 ML VIAL 25 MCG IV PUSH (11:42)
[2021-02-06] MEDS: ONDANSETRON INJ 4 MG/2 ML VIAL IV PUSH (11:49)
--- NOTE | 2021-02-06 11:58 | SUR.PREOP ---
pt informed of delay in procedure.
--- NOTE | 2021-02-06 12:02 | WPDANESEPPF ---
Anes - Initial Pre Proc Eval Procedure: Operation Date: 02/06/21 12:30 Proposed Procedures p Cystoscopy, Right Ureteroscopy, Right Retrograde Pyelogram, Right Stone Extraction, Possible Right Stent Placement - Hasmukh Mcfarland MD s Possible Holmium Laser Procedure - Hasmukh Mcfarland MD Date/Time: 02/06/21 12:02 Surgeon: Hasmukh Mcfarland MD Pre Op Diagnosis: right kidney stone Patient Data Age: 40 Gender: F Height: 1.68 m Weight: 82 kg Last Vital Signs Temp 36.5 C 02/06/21 11:16 Pulse 66 02/06/21 11:16 Resp 16 02/06/21 11:16 BP 136/70 02/06/21 11:16 Pulse Ox 99 02/06/21 11:16 Allergies Allergy/AdvReac Type Severity Reaction Status Date / Time No Known Allergies Allergy Verified 02/06/21 11:20 Home Medications Medication Instructions Recorded Confirmed Type Complete 1 tablet PO DAILY 08/08/19 02/06/21 History Probiotic Blend 1 cap PO DAILY 08/08/19 02/06/21 History cholecalciferol (vitamin D3) 6,000 mcg PO DAILY 08/08/19 02/06/21 History [Vitamin D3] sertraline [Zoloft] 150 mg PO DAILY 08/08/19 02/06/21 History tamsulosin 0.4 mg PO HS #20 cap 01/15/21 02/06/21 Rx hydrocodone-acetaminophen 1 tablet PO Q6H PRN #12 tablet 02/04/21 02/06/21 Rx promethazine 25 mg PO Q6H PRN #12 tablet 02/04/21 02/06/21 Rx ascorbic acid (vitamin C) [Vitamin 500 mg PO DAILY 02/05/21 02/06/21 History C] cetirizine [Zyrtec] 10 mg PO DAILY 02/05/21 02/06/21 History zinc 50 mg PO DAILY 02/05/21 02/06/21 History Patient hx anesthesia problems: none Family hx anesthesia problems: none PMFSH Past Medical History Medical History History of anxiety Hypercholesterolemia Kidney stones, calcium oxalate Overweight (BMI 25.0-29.9) Surgical History Surgical History History of History of mandibular surgery History of shoulder surgery Hx laparoscopic cholecystectomy S/P appendectomy Family History Family History Mother Hypertension Family history of kidney stones Father Cerebrovascular accident Family history of type 2 diabetes mellitus Grandparent Cerebrovascular accident Family history of malignant neoplasm of breast Other Family history of allergic disorder Family history of malignant neoplasm Social History Social History Smoking status: Never smoker Alcohol intake: current Gender identity (if verbalized by the patient): Female Sexual Orientation (if Verbalized by the Patient): Straight or Heterosexual Spiritual care concerns: No Anes - Eval Final PreProcedure Day of Procedure 02/06/21 12:02 Patient weight: overweight Heart: regular rate and rhythm Lungs: clear to auscultation and normal air movement Airway: Mallampati scale class II Neurological: alert and oriented Last oral intake: >/= 8 hours ASA classification: II Emergent: no Anesthetic plan: proceed Anesthesia type and monitoring: general LMA and standard monitoring Informed Consent: The patient's anesthetic plan and its attendant risks and benefits were discussed with the patient/family/POA. Questions were solicited and answers provided to the satisfaction of the patient/family/POA.
[2021-02-06] MEDS: ceFAZolin 2 GM/D5W 50 ML 2 GM/50 ML BAG IVPB (14:24)
[2021-02-06] MEDS: KETOROLAC 30 MG/ML VIAL (*BKC) IV PUSH (14:54)
[2021-02-06] MEDS: LIDOCAINE HCL 2% GEL UROJET 10 ML PKG MUCOUS MEM (14:56)
--- NOTE | 2021-02-06 15:00 | W.PM.PROC2 ---
Procedure Note - Detailed Date of Procedure 02/06/21 Pre-op Diagnosis Right ureteral stone Post-op Diagnosis same Procedure Performed Cystoscopy, right ureteroscopy with stone extraction Surgeon Hasmukh Mcfarland MD Anesthesia general Description of Procedure The patient was brought to the operative suite where she is prepped and draped in a routine sterile fashion while in the dorsal lithotomy position after the uneventful induction of a general LMA anesthetic. A 19F rigid cystoscope was placed in the bladder. The patient had no evidence of urethral stricture or bladder neck contracture. The bladder mucosa was endoscopically normal without hyperemia or neoplasm. There was a single, orthotopic ureteral orifice bilaterally. A 0.035 glidewire was advanced into the right renal pelvis under fluoroscopy. The distal ureter was dilated with an 8F/10F ureteral dilator. Ureteroscopy was undertaken with a short, tapered, semi-rigid ureteroscope and the stone was extracted with ease using a 1.9F Escape disposable stone basket. Due to the ease of this manipulation I opted not to place a ureteral stent. The patient's bladder was emptied and was taken to the recovery room having tolerated this procedure well. Drains No Packing No Pathology yes Complications No immediate complications Condition stable Disposition PACU
[2021-02-06] MEDS: oxyCODONE HCL (*CRX) 5 MG TAB IR PO (16:23)
== END 2021-02-06 17:04 | disposition home or self-care (01) ==
PROVIDERS: PCP Family Medicine; Visit Provider Urology
PROC: (CPT 52352; principal; 2021-02-06 12:30)
DX: N20.1 Calculus of ureter (principal); E78.00 Pure hypercholesterolemia, unspecified; F41.9 Anxiety disorder, unspecified
CPT/HCPCS: 52352; 36415; 74176; 80053; 81001; 81025; 82365; 83690; 85025; 87086; 87426; 88300; 96361; 96374; 99284; A9270; C1769; C9803; J0690; J1100; J1885; J2250; J2405; J2704; J3010; J7030; J7120; Q9966

== ENCOUNTER 2021-02-06 10:23 | Outpatient (CLI) | payer MEDICAID, SELFPAY ==
[2021-02-06 10:54] LABS: EDCOVIDSCREEN Negative (Negative)
== END 2021-02-06 10:24 | disposition home or self-care (01) ==
LOC: ANHSURGERY 10:25
PROVIDERS: PCP Family Medicine; Visit Provider Urology
DX: Z01.812 Encounter for preprocedural laboratory examination (principal); Z20.822 Contact with and (suspected) exposure to COVID-19
CPT/HCPCS: 87426; C9803

== ENCOUNTER 2021-02-06 23:02 | Emergency (ER) | payer MEDICAID, SELFPAY ==
--- NOTE | ~2021-02-06 | CT_ITS ---
EXAMINATION: CT abdomen pelvis wo con DATE: 02/07/2021 00:10 INDICATION: Right flank pain, right ureteral stone retrieval earlier in the day TECHNIQUE: Computed tomography (CT) of the abdomen and pelvis was performed without intravenous contr ast. The dose-length product (DLP) was 647.95 mGy-cm. Automated exposure control and iterative recons truction technique were employed. COMPARISON: 02/04/2021 FINDINGS: Minimal dependent atelectasis is present in the lung bases. The heart size is normal. A chr onic 9 mm nodule of the left lower lobe is consistent with old granulomatous disease. The gallbladder is surgically absent. The liver, spleen, pancreas, and adrenal glands are normal. The left kidney is unremarkable. The previously described right distal ureteral stone is no longer identified, consiste nt with interval treatment. Small amount of gas in the right kidney, right ureter, and urinary bladde r is consistent with stone extraction procedure. There is persistent moderate right hydroureteronephr osis. No pathologically enlarged abdominal or pelvic lymph nodes are identified. There is no free int raperitoneal gas or evidence of bowel obstruction. There is a fat-containing umbilical hernia. Duplic ated inferior vena cava is noted. IMPRESSION: 1. Changes of right distal ureteral stone extraction with mild persistent right hydroureteronephrosis . Reviewed, dictated and finalized at location A. IMPRESSION: 1. Changes of right distal ureteral stone extraction with mild persistent right hydroureteronephrosis.
[2021-02-06 23:06] VITALS: BP 135/77; PULSE 71; RESP 18; TEMP 36.4; O2SAT 98
[2021-02-06 23:23] VITALS: BP 145/91; PULSE 67; RESP 18; TEMP 36.6; O2SAT 98
--- NOTE | 2021-02-07 00:07 | ED.ABDPAIN ---
HPI - Abdominal Pain General Chief Complaint: Abdominal Pain Stated Complaint: right flank pain Time Seen by Provider: 02/06/21 23:32 History of Present Illness HPI narrative: Patient presents with right flank pain. She recently had ureteroscopy performed today for ureteral stone patient tolerated procedure well and went home. Patient reports she had some mild soreness but was doing well. She reports she had a sudden onset of right flank pain and noted another stone in her strainer she continues to have pain talk to her urologist and was referred to the ER for further evaluation. She reports her pain is improved but is still present. Related Data Home Medications Medication Instructions Recorded Confirmed Complete 1 tablet PO DAILY 08/08/19 02/06/21 Probiotic Blend 1 cap PO DAILY 08/08/19 02/06/21 cholecalciferol (vitamin D3) 6,000 mcg PO DAILY 08/08/19 02/06/21 [Vitamin D3] sertraline [Zoloft] 150 mg PO DAILY 08/08/19 02/06/21 ascorbic acid (vitamin C) [Vitamin 500 mg PO DAILY 02/05/21 02/06/21 C] cetirizine [Zyrtec] 10 mg PO DAILY 02/05/21 02/06/21 zinc 50 mg PO DAILY 02/05/21 02/06/21 Allergies Allergy/AdvReac Type Severity Reaction Status Date / Time No Known Allergies Allergy Verified 02/06/21 23:29 Review of Systems Review of Systems: CONSTITUTIONAL: Denies fever, chills, or sweats. EYES: Denies visual changes, redness, or discharge. ENT: Denies rhinorrhea, congestion, sore throat, or otalgia. CARDIOVASCULAR: Denies chest pain, palpitations, or edema. RESPIRATORY: Denies cough or dyspnea. GASTROINTESTINAL: Denies nausea, vomiting, or diarrhea. GENITOURINARY: Denies dysuria or hematuria. SKIN: Denies rash or itching. MUSCULOSKELETAL: Denies joint pain, or myalgia. NEUROLOGIC: Denies headache, numbness, dizziness, or weakness. PSYCHIATRIC: Denies anxiety or depression. All systems reviewed & are unremarkable except as noted in HPI and below PMFSH Past Medical History Medical History History of anxiety Hypercholesterolemia Kidney stones, calcium oxalate Overweight (BMI 25.0-29.9) Surgical History Surgical History History of History of mandibular surgery History of shoulder surgery Hx laparoscopic cholecystectomy S/P appendectomy Family History Family History Mother Hypertension Family history of kidney stones Father Cerebrovascular accident Family history of type 2 diabetes mellitus Grandparent Cerebrovascular accident Family history of malignant neoplasm of breast Other Family history of allergic disorder Family history of malignant neoplasm Social History Social History Smoking status: Never smoker Alcohol intake: current Gender identity (if verbalized by the patient): Female Sexual Orientation (if Verbalized by the Patient): Straight or Heterosexual Spiritual care concerns: No Exam Narrative: GENERAL: Well-appearing, well-nourished, and in no acute distress. HEAD: Normocephalic, atraumatic. EYES: PERRLA and EOMI. ENT: Nares clear, no rhinorrhea or epistaxis. Mucous membranes moist. NECK: Supple. No masses. No JVD ABDOMEN: Soft, nontender, nondistended, normal active bowel sounds. BACK: NO CVA tenderness EXTREMITIES: Normal range of motion. No edema. SKIN: Warm, dry, no rash. NEURO: No focal deficits. Alert and oriented x3. PSYCH: Normal mood and affect. Course Reevaluation(s) Reevaluation #1: Patient continues to have good pain control results and plan reviewed with patient. Patient is comfortable with outpatient plan and contacting her urologist in the morning Date: 02/07/21 Time: 00:49 Vital Signs Vital signs: Vital Signs Temperature 36.4 C 02/06/21 23:06 Pulse Rate 71 02/06/21 23:06 Respiratory Rate 18
[2021-02-07 00:15] LABS: Add Urine Microscopic? YES; Appearance Urine Clear (Clear); Bacteria Urine Trace /hpf; Bilirubin Urine Negative (Negative); Blood Urine 3+ (Negative); Color Urine Yellow (Yellow); Glucose Urine UA Negative (Negative); Ketones Urine Negative (Negative); Leukocyte Esterase Ur Negative LEU/UL (Negative); Mucus Urine Rare /lpf; Nitrate Urine Negative (Negative); Protein Urine 1+ mg/dL (Negative); RBC Urine >75 /hpf (0-2); Specific Grav Ur 1.009 (1.001-1.035); Squamous Epithelial Cell Urine Rare /hpf (Few); Urobilinogen Urine Negative mg/dL (<2.0)
[2021-02-07 00:25] VITALS: BP 117/75; PULSE 70; RESP 16; O2SAT 97
[2021-02-07] MEDS: SODIUM CHLORIDE 0.9% IV 1,000 ML 999 ML IV CONT (00:43)
[2021-02-07] MEDS: fentaNYL CITRATE INJ (*CRX) 100 MCG/2 ML VIAL 50 MCG IV PUSH (00:43)
[2021-02-07 00:52] LABS: Basophils Percent Auto 0.3 % (0.2-1.2); Eosinophils Percent Auto 0.2 % (0-4.4); Hematocrit 37.1 % (37.0-47.0); Hemoglobin 12.3 g/dL (12.0-15.0); Immature Granulocyte Absolute 0.05 K/mm3 (0.00-0.031); Immature Granulocyte Percent A 0.5 % (0-0.5); Lymphocytes Absolute Auto 1.54 K/mm3 (0.9-3.2); Lymphocytes Percent Auto 14.7 % (18.3-44.2); Mean Corpuscular HGB Conc 33.2 g/dl (32-36); Mean Corpuscular Hemoglobin 28.5 pg (26-34); Mean Corpuscular Volume 85.9 fl (80-100); Mean Platelet Volume 9.8 fl (7.4-10.4); Monocytes Absolute Auto 0.6 K/mm3 (0.1-0.6); Monocytes Percent Auto 5.3 % (2.6-8.5); Neutrophils Absolute Auto 8.3 K/mm3 (1.3-6.7); Platelet Count Result 218 k/mm3 (150-375); Red Blood Count 4.32 M/mm3 (4.2-5.4); Red Cell Distribution Width 13.4 % (11.5-14.5); White Blood Count 10.5 K/mm3 (4.5-10.0)
[2021-02-07 00:53] LABS: Alanine Aminotransferase 37 U/L (4-35); Albumin Level 4.7 g/dL (3.5-5.1); Alkaline Phosphatase 60 U/L (38-126); Anion Gap 11 mmol/L (8-16); Aspartate Amino Transferase 35 U/L (14-36); Bilirubin,Total 0.4 mg/dL (0.2-1.3); Blood Urea Nitrogen 8 mg/dL (7-17); Calcium 9.5 mg/dL (8.4-10.2); Carbon Dioxide 22 mmol/L (22-30); Chloride 107 mmol/L (98-107); Estimated CRCL calculation 100 ml/min; Estimated Glomerular Filt Rate > 60; Glucose 122 mg/dL (65-110); Lipase 41 U/L (23-300); Potassium 4.1 mmol/L (3.4-5.0); Sodium 140 mmol/L (137-145)
[2021-02-07 01:45] VITALS: BP 123/72; PULSE 62; RESP 16; O2SAT 98
== END 2021-02-07 01:49 | disposition home or self-care (01) ==
PROVIDERS: Emergency Provider Emergency Medicine; PCP Family Medicine
DX: R10.9 Unspecified abdominal pain (principal); F41.9 Anxiety disorder, unspecified; E78.00 Pure hypercholesterolemia, unspecified; Z87.442 Personal history of urinary calculi; Z98.890 Other specified postprocedural states
CPT/HCPCS: 36415; 74176; 80053; 81001; 81025; 83690; 85025; 87086; 87426; 96361; 96374; 99284; C9803; J3010; J7030

== ENCOUNTER 2021-04-16 19:41 | Emergency (ER) | payer OTHER, SELFPAY ==
[2021-04-16 20:15] VITALS: BP 125/76; PULSE 99; RESP 20; TEMP 36.9; O2SAT 97
[2021-04-16 20:40] VITALS: BP 125/76; PULSE 88
--- NOTE | 2021-04-16 20:51 | ED.GENADULT ---
HPI - General Adult General Chief complaint: Dizziness Stated complaint: high blood pressure Source: patient Mode of arrival: ambulatory Limitations: no limitations History of Present Illness HPI narrative: Huong is a 40F with a PMH of kidney stones, HLD and post depression that presented to the emergency department with a variety of symptoms. She has been under a lot of stress lately. She has a 2 and 4 year old. She split with her last year as well and is now seeing one of his friends that makes the tension worse. Tonight she felt very stressed, tired, had a headache, nauseated and epigastric pain. She denies CP and shortenss of breath to me. In addition she is on sertraline 200mg QD and is trying to wean off and has missed some doses. Related Data Home Medications Medication Instructions Recorded Confirmed sertraline [Zoloft] 50 mg PO DAILY 08/08/19 04/16/21 Allergies Allergy/AdvReac Type Severity Reaction Status Date / Time No Known Allergies Allergy Verified 02/06/21 23:29 Review of Systems Constitutional: Constitutional: Reports no additional constitutional complaints Eyes: Eyes: Reports no additional eye complaints ENT: Reports system reviewed and no additional complaints, except as documented Cardiovascular: Cardiovascular: Reports no additional cardiovascular complaints Respiratory: Respiratory: Reports no additional respiratory complaints Gastrointestinal: Gastrointestinal: Reports as per HPI Genitourinary: Genitourinary: Reports no additional female genitourinary complaints Musculoskeletal: Musculoskeletal: Reports no additional musculoskeletal complaints Integumentary/Breasts: Skin/Breast: Reports system reviewed and no additional complaints, except as docu Neurologic: Reports system reviewed and no additional complaints, except as documented Psychiatric: Psychiatric: Reports no additional psychiatric complaints Endocrine: Endocrine: Reports no additional endocrine complaints Hematologic/Lymphatic: Hematologic/Lymphatic: Reports no additional hematologic/lymphatic complaints Allergic/Immunologic: Allergic/Immunologic: Reports no additional allergic/immunologic complaints COUNTS INCLUDE 234 BEDS AT THE [facility] Past Medical History Medical History History of anxiety Hypercholesterolemia Kidney stones, calcium oxalate Overweight (BMI 25.0-29.9) Surgical History Surgical History History of History of mandibular surgery History of shoulder surgery Hx laparoscopic cholecystectomy S/P appendectomy Family History Family History Mother Hypertension Family history of kidney stones Father Cerebrovascular accident Family history of type 2 diabetes mellitus Grandparent Cerebrovascular accident Family history of malignant neoplasm of breast Other Family history of allergic disorder Family history of malignant neoplasm Social History Social History Smoking status: Never smoker Alcohol intake: current Gender identity (if verbalized by the patient): Female Sexual Orientation (if Verbalized by the Patient): Straight or Heterosexual Spiritual care concerns: No Exam Const: General: no acute distress and alert Orientation/consciousness: patient oriented x3 HENMT: Head: normal to inspection Other: normocephalic, atrauamtic Eyes: Conjunctivae: conjunctivae normal Pupils: Equal, round and reactive pupils present Neck: Neck: normal visual inspection Chest: Chest palpation & inspection: normal inspection of the chest Resp: Effort & Inspection: normal respiratory effort Auscultation: clear to auscultation bilaterally Cardio: Rate: regular rate Rhythm: regular rhythm Heart sounds: no murmurs GI: Inspection: non-distended GI Palp: Yes Soft to palpation,
[2021-04-16] MEDS: LORazepam (*CRX) 1 MG TABLET PO (21:03)
[2021-04-16 21:06] LABS: Basophils Absolute Auto 0.03 K/mm3 (0.00-0.10); Basophils Percent Auto 0.3 % (0.0-1.0); Eosinophils Absolute Auto 0.11 K/mm3 (0.02-0.50); Eosinophils Percent Auto 1.1 % (1.0-6.0); Hematocrit 42.2 % (35.0-49.0); Hemoglobin 14.1 g/dL (12.0-15.0); Immature Granulocyte Absolute 0.07 K/mm3 (0.00-0.00); Immature Granulocyte Percent A 0.7 % (0.0-0.0); Lymphocytes Absolute Auto 1.03 K/mm3 (1.10-4.50); Lymphocytes Percent Auto 10.6 % (18.0-42.0); Mean Corpuscular HGB Conc 33.4 g/dL (32.0-36.0); Mean Corpuscular Hemoglobin 28.7 pg (27.0-31.0); Mean Corpuscular Volume 85.8 fL (78.0-102.0); Mean Platelet Volume 9.6 fl (9.2-11.8); Monocytes Absolute Auto 0.55 K/mm3 (0.10-0.90); Monocytes Percent Auto 5.7 % (2.0-11.0); Neutrophils Absolute Auto 7.9 K/mm3 (1.7-7.2); Neutrophils Percent Auto 81.6 % (50.0-70.0); Platelet Count Result 191 K/mm3 (150-420); Red Blood Count 4.92 M/mm3 (4.20-5.40); Red Cell Distribution Width 13.8 % (11.6-14.4); White Blood Count 9.7 K/mm3 (4.8-10.8)
[2021-04-16 21:08] LABS: Add Urine Microscopic? YES; Appearance Urine Clear (Clear); Bilirubin Urine Negative (Negative); Blood Urine Negative (Negative); Color Urine Yellow (Yellow); Glucose Urine UA Negative (Negative); Ketones Urine Negative (Negative); Leukocyte Esterase Ur Negative (Negative); Nitrate Urine Negative (Negative); Protein Urine 1+ (Negative); Specific Grav Ur >= 1.030 (1.010-1.020); Urobilinogen Urine 0.2 mg/dL (0.2-1.0); pH Urine 5.5 (5.0-8.0)
[2021-04-16 21:13] LABS: Bacteria Urine 2+ /hpf; RBC Urine 0-2 /hpf (0-2); Squamous Epithelial Cell Urine Moderate /hpf (Few)
[2021-04-16 21:14] LABS: Pregnancy On Board Control Positive; Urine Pregnancy Test Negative
[2021-04-16 21:29] LABS: Alanine Aminotransferase 50 U/L (14-59); Albumin Level 4.3 g/dL (3.4-5.0); Alkaline Phosphatase 74 U/L (46-116); Anion Gap 11 mmol/L (8-16); Aspartate Amino Transferase 18 U/L (15-37); Bilirubin,Total 0.7 mg/dL (0.00-1.00); Blood Urea Nitrogen 11 mg/dL (7-18); Calcium 8.9 mg/dL (8.5-10.1); Carbon Dioxide 24 mmol/L (21-32); Chloride 102 mmol/L (98-108); Estimated CRCL calculation 84 ml/min; Estimated Glomerular Filt Rate > 60; Glucose 106 mg/dL (70-99); Lipase 69 U/L (73-393); Osmolality Calculated 283 mOsm/kg (285-295); Potassium 3.9 mmol/L (3.5-5.1); Sodium 137 mmol/L (136-145); Total Protein 8.1 g/dL (6.4-8.2)
[2021-04-16 21:34] LABS: Lactic Acid Reflex 2.4 mmol/L (0.4-2.0)
[2021-04-16 21:45] VITALS: BP 132/67; PULSE 75; RESP 18; TEMP 36.2; O2SAT 98
== END 2021-04-16 21:47 | disposition home or self-care (01) ==
PROVIDERS: Emergency Provider Family Medicine; PCP Family Medicine
DX: F41.9 Anxiety disorder, unspecified (principal); K21.9 Gastro-esophageal reflux disease without esophagitis
CPT/HCPCS: 36415; 80053; 81001; 81025; 83605; 83690; 85025; 99283; A9270

== ENCOUNTER 2022-05-22 16:20 | Outpatient (CLI) | payer OTHER, SELFPAY ==
--- NOTE | ~2022-05-22 | US_ITS ---
EXAMINATION: US OB <= 14 weeks fetus DATE: 05/22/2022 16:46 INDICATION: Evaluate dating of during first trimester TECHNIQUE: Real-time pelvic ultrasound utilizing both a transvaginal and transabdominal probe was pe rformed. The interpreting radiologist was not present for the study. COMPARISON: None. FINDINGS: The uterus measures 13.1 x 7.3 x 5.4 cm. There is an intrauterine gestational sac. A yolk sac and fe samantha pole are identified. The crown rump length measures 1.2 cm, which correlates with an estimated ge stational age of 7 weeks and 3 days. There is no evident heart motion evident on M-mode Doppler . The right wrist and visualized. There is no free fluid in the pelvis. IMPRESSION: 1. Single fetus with crown-rump length of 1.2 cm consistent with a gestational age by ultrasound of 7 weeks 3 day(s) +/- 5 day(s) with ultrasound estimated date of delivery (DARREL) of 01/06/2023. 2. No evident heart motion by M-mode Doppler which given crown-rump length is concerning but no t definitive for demise with transabdominal imaging. Correlate with any prior outside imaging a nd consider transvaginal imaging for more definitive determination. Reviewed, dictated and finalized at location A. [facility] IMPRESSION: 1. Single fetus with crown-rump length of 1.2 cm consistent with a gestational age by ultrasound of 7 weeks 3 day(s) +/- 5 day(s) with ultrasound estimated da te of delivery (DARREL) of 01/06/2023. 2. No evident heart motion by M-mode Doppler which given crown-rump lengt h is concerning but not definitive for demise with transabdominal imaging . Correlate with any prior outside imaging and consider transvaginal imaging fo r more definitive determination.
== END 2022-05-22 16:21 | disposition home or self-care (01) ==
PROVIDERS: PCP Family Medicine; Visit Provider Obstetrics & Gynecology
DX: Z36.9 Encounter for antenatal screening, unspecified (principal); Z3A.01 Less than 8 weeks gestation of pregnancy
CPT/HCPCS: 76801

== ENCOUNTER 2022-05-24 18:48 | Emergency (ER) | payer OTHER, SELFPAY ==
[2022-05-24] VITALS (13 sets, daily range): BP systolic 114–145; BP diastolic 66–106; PULSE 60–93; RESP 14–20; TEMP 36.9; O2SAT 96–100
--- NOTE | ~2022-05-24 | US_ITS ---
EXAMINATION: US OB <= 14 weeks fetus DATE: 05/24/2022 21:15 INDICATION: Miscarriage TECHNIQUE: Real-time pelvic ultrasound utilizing both a transvaginal and transabdominal probe was pe rformed. The interpreting radiologist was not present for the study. COMPARISON: None. FINDINGS: The uterus measures 13.2 x 5.2 6.4 cm cm. The endometrial complex measures 1.3 cm thickness. The prio r 4.3 x 2.7 cm gestational sac containing a 1.2 cm pole is no longer visualized. There is a sma ll hypoechoic region and more focal 9 x 4 mm anechoic fluid collection at the periphery of the endome trial complex which likely represents the remnant of the prior gestational sac. The previously seen f etal pole is not identified. The right ovary measures 3.6 x 2.3 x 2.0 cm. The left ovary measures 2.2 x 2.0 x 1.6 cm. 1.4 cm anech oic likely corpus luteum cyst at the left ovary. There is no free fluid in the pelvis. IMPRESSION: 1. Previously clearly identified gestational sac with pole no longer visualized consistent with interval spontaneous . Reviewed, dictated and finalized at location A. [facility] [employer] [employer] IMPRESSION: 1. Previously clearly identified gestational sac with pole no longer visu alized consistent with interval spontaneous .
[2022-05-24 19:30] LABS: Basophils Percent Auto 0.4 % (0.2-1.2); Eosinophils Absolute Auto 0.1 K/mm3 (0-0.3); Hematocrit 38.6 % (37.0-47.0); Hemoglobin 13.1 g/dL (12.0-15.0); Immature Granulocyte Absolute 0.03 K/mm3 (0.00-0.031); Immature Granulocyte Percent A 0.3 % (0-0.5); Lymphocytes Percent Auto 35.5 % (18.3-44.2); Mean Corpuscular HGB Conc 33.9 g/dl (32-36); Mean Corpuscular Hemoglobin 27.9 pg (26-34); Mean Corpuscular Volume 82.1 fl (80-100); Mean Platelet Volume 9.7 fl (7.4-10.4); Monocytes Absolute Auto 0.8 K/mm3 (0.1-0.6); Monocytes Percent Auto 8.8 % (2.6-8.5); Platelet Count Result 204 k/mm3 (150-375); Red Cell Distribution Width 14.2 % (11.5-14.5); White Blood Count 9.3 K/mm3 (4.5-10.0)
--- NOTE | 2022-05-24 19:44 | ED.FEMALEGU ---
HPI - Female Genitourinary General Chief complaint: Vaginal Bleeding Stated complaint: miscarriage Time Seen by Provider: 05/24/22 19:24 Source: patient Mode of arrival: ambulatory Limitations: no limitations History of Present Illness HPI Narrative: Patient is 41 years old white female presents to the ED with vaginal bleeding since last night, got worse 1 hour prior to arrival to the emergency room, patient passed a large sized blood clot with tissue. Patient is 4, para 2, 2. Patient had a pelvic ultrasound 2 days ago which showed single fetus 7 weeks 3 days +/- 5 days, no evident heart motion concerning but not definitive for demise. Related Data Home Medications Medication Instructions Recorded Confirmed sertraline 100 mg tablet (Zoloft) 50 mg PO DAILY 08/08/19 04/16/21 Allergies Allergy/AdvReac Type Severity Reaction Status Date / Time No Known Allergies Allergy Verified 02/06/21 23:29 Review of Systems Review of Systems: All systems reviewed & are unremarkable except as noted in HPI and below PMFSH Past Medical History Medical History History of anxiety Hypercholesterolemia Kidney stones, calcium oxalate Overweight (BMI 25.0-29.9) Surgical History Surgical History History of History of mandibular surgery History of shoulder surgery Hx laparoscopic cholecystectomy S/P appendectomy Family History Family History Mother Hypertension Family history of kidney stones Father Cerebrovascular accident Family history of type 2 diabetes mellitus Grandparent Cerebrovascular accident Family history of malignant neoplasm of breast Other Family history of allergic disorder Family history of malignant neoplasm Social History Social History Smoking status: Never smoker Alcohol intake: current Gender identity (if verbalized by the patient): Female Sexual Orientation (if Verbalized by the Patient): Straight or Heterosexual Spiritual care concerns: No Exam Narrative: General appearance: Well-developed, well-nourished Skin: Normal color Head: Normocephalic, nontraumatic Eyes: Clear conjunctiva ENT: Oropharynx normal, ears normal, nose normal Neck: Supple, nontender Chest and respiratory: Airway patent, no respiratory distress, no accessory muscle use Heart: Regular rate/rhythm Abdomen: Soft, nontender, no organomegaly, quiet bowel sounds Vascular: Normal peripheral pulses, normal capillary refill. Musculoskeletal: Normal range of motion, nontender back Neurologic: Alert and oriented ?3, STEEL INSPECTOR is normal as tested, no gross motor deficit : External Female Exam: normal external appearance Speculum Exam - Vagina: normal appearance of the vagina and vaginal bleeding (3 long Q-tip was enough to dry the whole vaginal pouch, cervix open) Course Consultations Consultation #1: Dr. Hali Malik Patient can go home, outpatient follow-up, bedrest and fluid. Date: 05/24/22 Time: 23:01 Vital Signs Vital signs: Vital Signs Temperature 36.9 C 05/24/22 19:05 Pulse Rate 93 05/24/22 19:05 Respiratory Rate 18 05/24/22 19:05 Blood Pressure 123/75 05/24/22 19:05 Pulse Oximetry 100 05/24/22 19:05 Oxygen Delivery Room Air 05/24/22 19:05 Temperature 36.9 C 05/24/22 19:05 Pulse Rate 93 05/24/22 19:05 Respiratory Rate 18 05/24/22 19:05 Blood Pressure 123/75 05/24/22 19:05 Pulse Oximetry 100 05/24/22 19:05 Oxygen Delivery Room Air 05/24/22 19:05
[2022-05-24] MEDS: HYDROmorphone HCL INJ (*CRX) 1 MG/ML SYR 0.5 MG IV PUSH (19:52)
[2022-05-24] MEDS: ONDANSETRON INJ 4 MG/2 ML VIAL IV PUSH (20:23)
[2022-05-24] MEDS: SODIUM CHLORIDE 0.9% IV 1,000 ML 999 ML IV CONT (20:23)
[2022-05-24 21:52] LABS: Alanine Aminotransferase 70 U/L (6-35); Albumin Level 4.9 g/dL (3.5-5.1); Alkaline Phosphatase 71 U/L (38-126); Anion Gap 10 mmol/L (8-16); Aspartate Amino Transferase 51 U/L (14-36); Bilirubin,Total 0.3 mg/dL (0.2-1.3); Blood Urea Nitrogen 6 mg/dL (7-17); Calcium 9.9 mg/dL (8.4-10.2); Carbon Dioxide 23 mmol/L (22-30); Chloride 102 mmol/L (98-107); Estimated CRCL calculation 132 ml/min; Estimated Glomerular Filt Rate > 60; Glucose 103 mg/dL (65-110); Potassium 3.6 mmol/L (3.4-5.0); Sodium 135 mmol/L (137-145)
--- NOTE | 2022-05-24 22:14 | PC.NURSE ---
Appropriate forms for [place] demise filled and placed in pt chart. Family elects for hospital to dispose of remains. [facility] called. Christine was contact. There will be no examination.
--- NOTE | 2022-05-24 22:35 | PC.NURSE ---
pelvic exam complete. Swab specimens and remains sent to lab.
--- NOTE | 2022-05-25 19:22 | PC.NURSE ---
Infusion for normal Saline, 1000mL was completed.
== END 2022-05-25 00:34 | disposition home or self-care (01) ==
PROVIDERS: Emergency Medicine; Emergency Provider Emergency Medicine; PCP Family Medicine
DX: O03.9 Complete or unspecified spontaneous abortion without complication (principal); F41.9 Anxiety disorder, unspecified; E78.00 Pure hypercholesterolemia, unspecified; Z87.442 Personal history of urinary calculi; E66.3 Overweight
CPT/HCPCS: 36415; 76801; 80053; 84702; 85025; 85461; 86850; 86900; 86901; 88305; 96361; 96374; 96375; 99284; J1170; J2405; J7030

== ENCOUNTER 2022-08-07 01:17 | Day surgery (SDC) | payer OTHER, SELFPAY ==
[2022-08-03 08:21] VITALS: BMI 28.0
--- NOTE | 2022-08-03 08:28 | PC.NURSE ---
Report to the Outpatient Waiting Room, entrance under the green pavilion located off [facility], at time 1130 on date 08/07/22. Planned Procedure Time: 1330. Time changes happen often and if your time is changed the preop area will call you the afternoon before. - You and your visitor will be asked to self-screen and do not enter if you have any COVID symptoms. - Only one visitor is requested with a max of two and NO children visitors are allowed at this time. - The patient visitor may be requested to leave or wait in car when not with patient due to distancing restrictions. - A mask is optional within the hospital at this time. Patients may have clear liquids (water, carbonated beverages, clear teas, apple juice) until 3 hours prior to surgery with a maximum of 20 ounces. - No food from midnight until time of surgery Take the following medications with a SIP of water the morning of surgery: SERTRALINE, ANTIBIOTIC DO NOT STOP ANY OF YOUR OTHER PRESCRIPTION MEDICATIONS PRIOR TO SURGERY EXCEPT THE FOLLOWING Medications to discontinue per physician: VITAMINS/SUPPLEMENTS Date to take last dose: 08/03/22 Please no make-up, nail hungarian, hairspray, perfume, deodorant, or body powder the day of surgery. No jewelry (including any body piercings) or valuables the day of surgery, leave them at home. Please take a shower or bath the night before, or the morning of, surgery with an antibacterial soap. Wear comfortable, loose fitting clothing. - Jewelry must be removed prior to entering the operating room. Rings and piercings that are not removed may be cut off. - The hospital will not accept responsibility for valuables. - Please leave all valuables, including medications, at home the day of surgery. If you are going home after surgery, a licensed electric screw driver operator must drive you home. - NO public transportation without another adult if you receive anesthesia. - We recommend that an adult stay with you for 24 hours following discharge. - We also recommend that you do not drive, make important decision, drink alcoholic beverages, or take any drugs that were not prescribed by your health care provider for at least 24 hours after your discharge time. Follow any additional instructions given to you from your surgeon. If you or anyone in your household have experienced Covid symptoms in the past week, please notify your surgeon or the nurse liaison at the phone number below for possible testing. Telephone instructions given to VALERI KLEIN and asked if any additional questions and then verbalized understanding. Patient advised to call surgeon office or pre surgery nurse liaison [phone] if any additional questions.
--- NOTE | 2022-08-05 07:47 | PM.IMHP ---
H&P: HPI History of Present Illness Date/Time: 08/05/22 07:47 Chief Complaint: Desires permanent sterilization and excessive heavy bleeding refractory to medical therapy Narrative: This 41-year-old multiparous female admitted for laparoscopic bilateral tubal ligation/hysteroscopy/dilatation curettage/endometrial ablation. She desires permanent irreversible sterilization. Alternatives including but not exclusive of pills, patches, injections, long-acting contraception, etc. were reviewed and she opted for permanent irreversible sterilization. She also has excessive heavy bleeding and would desire endometrial ablation. Risks and benefits of this procedure reviewed including but not exclusive of , aspiration, bleeding transfusion, perforation injury to bowel, bladder, ureters, or other internal organs with the need for open laparotomy. She received the [employer] handout entitled laparoscopy as well as hysteroscopy and dilatation curettage respectively. She received the handout concerning Pat ablation. She had all questions answered and asked to proceed PMFSH Past Medical History Medical History History of anxiety Hypercholesterolemia Kidney stones, calcium oxalate Overweight (BMI 25.0-29.9) Surgical History Surgical History History of History of mandibular surgery History of shoulder surgery Hx laparoscopic cholecystectomy S/P appendectomy Family History Family History Mother Hypertension Family history of kidney stones Father Cerebrovascular accident Family history of type 2 diabetes mellitus Grandparent Cerebrovascular accident Family history of malignant neoplasm of breast Other Family history of allergic disorder Family history of malignant neoplasm Social History Social History Smoking status: Never smoker Alcohol intake: never Substance use: never Substance use type: does not use Living arrangements: with family Additional living arrangements comments: CHILDREN Gender identity (if verbalized by the patient): Female Sexual Orientation (if Verbalized by the Patient): Straight or Heterosexual Spiritual care concerns: No Meds Home Medications and Allergies Home Medications Medication Instructions Recorded Confirmed Type Lactobacillus acidophilus and 1 cap PO DAILY 08/03/22 08/03/22 History rhamnosus 15 billion cell capsule (Probiotic) cetirizine 10 mg tablet (Zyrtec) 10 mg PO DAILY 08/03/22 08/03/22 History cholecalciferol (vitamin D3) 125 125 mcg PO DAILY 08/03/22 08/03/22 History mcg (5,000 unit) tablet (Vitamin D3) prenat.vits,kimberli,swa-esyr-tnccp 1 tablet PO DAILY 08/03/22 08/03/22 History sertraline 100 mg tablet 150 mg PO DAILY 08/03/22 08/03/22 History zinc acetate 50 mg (zinc) capsule 50 mg PO DAILY 08/03/22 08/03/22 History amoxicillin 875 mg-potassium 1 tablet PO Q12H 08/04/22 08/04/22 History clavulanate 125 mg tablet Allergies Allergy/AdvReac Type Severity Reaction Status Date / Time No Known Allergies Allergy Verified 08/03/22 08:18 Exam Const: General: cooperative, healthy appearing, comfortable, well groomed and average body habitus Orientation/consciousness: oriented to person, oriented to place and oriented to time HENMT: Head: normal to inspection Chest: Chest palpation & inspection: normal inspection of the chest Resp: Effort & Inspection: normal respiratory effort Cardio: Rate: regular rate Rhythm: regular rhythm Heart sounds: S1 normal heart sound present and S2 normal heart sound present GI: Inspection: normal to inspection Percussion: Yes normal to percussion Auscultation: normal bowel sounds : Speculum Exam - Vagina: normal appearance of the vagina Speculum Exam - Cervix:
[2022-08-07] VITALS (21 sets, daily range): BP systolic 124–152; BP diastolic 59–81; PULSE 58–95; RESP 12–18; TEMP 36.3–37.2; O2SAT 91–99
--- NOTE | 2022-08-07 07:07 | WPDHPUPDATE1 ---
History and Physical Update Update Date/Time: 08/07/22 07:07 History and Physical has been reviewed, including an updated exam of the patient. There are NO changes in the patient's condition. Risks, benefits, and alternatives have been discussed and questions answered. Patient agrees to proceed with procedure.
[2022-08-07] MEDS: ACETAMINOPHEN 500 MG TABLET 1000 MG PO (11:56)
[2022-08-07] MEDS: LACTATED RINGERS 1,000 ML 30 ML IV CONT ×2 (12:17→14:53)
[2022-08-07] MEDS: KETOROLAC 15 MG/ML VIAL (*BKC) IV PUSH ×2 (12:22→14:44)
--- NOTE | 2022-08-07 12:53 | WPDANESEPPF ---
Anes - Initial Pre Proc Eval Procedure: Operation Date: 08/07/22 13:30 Proposed Procedures p Laparoscopic Bilateral Tubal Sterilization - Bryn Malik MD s Hysteroscopy, Dilation and Curettage, Pat Endometrial Ablation - Bryn Malik MD Date/Time: 08/07/22 12:53 Surgeon: Bryn Malik MD Pre Op Diagnosis: desires sterilization, heavy bleeding Patient Data Age: 41 Gender: F Height: 1.68 m Weight: 75.75 kg Last Vital Signs Temp 37.1 C 08/07/22 11:36 Pulse 74 08/07/22 11:36 Resp 16 08/07/22 11:36 BP 124/71 08/07/22 11:36 Pulse Ox 99 08/07/22 11:36 O2 Del Method Room Air 08/07/22 11:36 Allergies Allergy/AdvReac Type Severity Reaction Status Date / Time No Known Allergies Allergy Verified 08/07/22 11:49 Home Medications Medication Instructions Recorded Confirmed Type Lactobacillus acidophilus and 1 cap PO DAILY 08/03/22 08/07/22 History rhamnosus 15 billion cell capsule (Probiotic) cetirizine 10 mg tablet (Zyrtec) 10 mg PO DAILY 08/03/22 08/07/22 History cholecalciferol (vitamin D3) 125 125 mcg PO DAILY 08/03/22 08/07/22 History mcg (5,000 unit) tablet (Vitamin D3) prenat.vits,kimberli,app-bsru-ewgzk 1 tablet PO DAILY 08/03/22 08/07/22 History sertraline 100 mg tablet 150 mg PO DAILY 08/03/22 08/07/22 History zinc acetate 50 mg (zinc) capsule 50 mg PO DAILY 08/03/22 08/07/22 History amoxicillin 875 mg-potassium 1 tablet PO Q12H 08/04/22 08/07/22 History clavulanate 125 mg tablet hydrocodone 5 mg-acetaminophen 325 1 tablet PO Q4H PRN pain #20 tabs 08/07/22 Rx mg tablet Patient hx anesthesia problems: none Family hx anesthesia problems: none Results Review: All pre-operative results and documents have been reviewed as part of the pre-operative evaluation. [facility] Past Medical History Medical History History of anxiety Hypercholesterolemia Kidney stones, calcium oxalate Overweight (BMI 25.0-29.9) Surgical History Surgical History History of History of mandibular surgery History of shoulder surgery Hx laparoscopic cholecystectomy S/P appendectomy Family History Family History Mother Hypertension Family history of kidney stones Father Cerebrovascular accident Family history of type 2 diabetes mellitus Grandparent Cerebrovascular accident Family history of malignant neoplasm of breast Other Family history of allergic disorder Family history of malignant neoplasm Social History Social History Smoking status: Never smoker Alcohol intake: never Substance use: never Substance use type: does not use Living arrangements: with family Additional living arrangements comments: CHILDREN Gender identity (if verbalized by the patient): Female Sexual Orientation (if Verbalized by the Patient): Straight or Heterosexual Spiritual care concerns: No Anes - Eval Final PreProcedure Day of Procedure 08/07/22 12:53 Patient weight: overweight Heart: regular rate and rhythm Lungs: clear to auscultation Airway: Mallampati scale class II Neurological: alert and oriented Last oral intake: >/= 8 hours ASA classification: II Emergent: no Anesthetic plan: proceed Anesthesia type and monitoring: general ETT and standard monitoring Results Review: All pre-operative results and documents have been reviewed as part of the pre-operative evaluation. Informed Consent: The patient's anesthetic plan and its attendant risks and benefits were discussed with the patient/family/POA. Questions were solicited and answers provided to the satisfaction of the patient/family/POA.
--- NOTE | 2022-08-07 14:04 | W.PM.PROC2 ---
Procedure Note - Detailed Date of Procedure 08/07/22 Pre-op Diagnosis desires sterilization, heavy bleeding Post-op Diagnosis Same Procedure Performed Laparoscopic bilateral tubal ligation with bands / hysteroscopy / dilatation and curettage/Pat ablation Surgeon Bryn Malik MD Anesthesia General Indications this is a 41-year-old female desires permanent sterilization with excessive heavy bleeding Findings normal-appearing uterus ovaries and tubes. Description of Procedure Patient was prepped draped in the normal sterile fashion placed in the dorsal lithotomy position. Under excellent general trach anesthesia weighted speculum placed posterior fornix vagina. Anterior lip of the cervix grasped with a single-tooth tenaculum. Mcgregor's cannula inserted to the cervix attached to the single-tooth to be used later utero from for uterine manipulation. Bladder drained of clear urine the weighted speculum was removed. Gloves were changed next. A supraumbilical incision made the Veress needle passed in the abdomen. Filled with CO2 gas [id number]. 5mm trocar advanced under direct visualization with the opposite coping no injury seen. Patient placed in Trendelenburg and a suprapubic incision made. The 8mm trocar advanced under direct visualization assuring no injury. The left fallopian tube was grasped a good knuckle of tube formed and with excellent blanching and photo documentation undertaken in like fashion the right fallopian tube was grasped at its midportion a good knuckle of tube formed with a silastic band and blanching was noted. Photo documentation was undertaken. No other abnormalities were seen. The lower site removed. The gas removed from the abdomen. The upper site removed. The incisions closed with 4 Monocryl and glue. Attention was turned to the hysteroscopic portion. The uterus sounded to7.5cm. Serial dilatation with fragmented dilators performed followed by passes the 5mm visualizing hysteroscope using normal saline as visualizing medium. Thick irregular endometrium was seen with normal appearing fallopian tube ostia but no definitive abnormality seen. The uterus was then scraped over the entire 360? until good grating sound was heard. The Pat instrument placed in the uterus burned for the 120seconds as required. This was withdrawn and the hysteroscope reinserted. Excellent burning was seen and the photo documentation undertaken. The instruments withdrawn. The patient was awakened. She went to recovery in satisfactory condition. All sponge, needle, instrument counts were correct. There were no immediate complications Estimated Blood Loss 25 Drains No Packing No Pathology Yes Complications No immediate complications Condition Stable Disposition PACU
[2022-08-07] MEDS: fentaNYL CITRATE INJ (*CRX) 100 MCG/2 ML VIAL 25 MCG IV PUSH ×8 (14:24→16:52)
[2022-08-07] MEDS: HYDROmorphone HCL INJ (*CRX) 1 MG/ML SYR IV PUSH ×3 (14:47→17:28)
[2022-08-07] MEDS: oxyCODONE HCL (*CRX) 5 MG TAB IR PO (16:06)
--- NOTE | 2022-08-07 16:29 | SUR.PHASEII ---
1620- Notified Dr. Hali Malik of patient's continued pain level of 01/14. New orders received.
--- NOTE | 2022-08-07 18:38 | SUR.PHASEII ---
pt is ready for room 325 at this time.
[2022-08-07 20:22] LABS: Glucose Point of Care 153 mg/dl (65-105)
[2022-08-07] MEDS: DEXTROSE 5%/LACTATED RINGERS 1,000 ML 125 ML IV CONT (21:27)
[2022-08-07] MEDS: MORPHINE SULFATE PCA (*CRX) 30 MG/30 ML SYR IV CONT (21:59)
[2022-08-07] MEDS: SERTRALINE HCL 50 MG TABLET 150 MG PO (22:26)
--- NOTE | 2022-08-07 22:40 | ADMGEN ---
This patient, uHong Weems, was admitted to [facility] Surg Room 325-02. Patient/family oriented to hospital policies and general routines including ID bracelet, bed and alarms, visiting hours, pain management, procedures, bathroom and other care routines, personal items, smoking policy, room service/diet, and visiting hours. Information on how to activate the Rapid Response Team has been discussed. Patient/Family are encouraged to report perceived risks to care and to ask questions if they do not understand what they are told or what they should do.
[2022-08-08] VITALS (10 sets, daily range): BP systolic 114–137; BP diastolic 56–78; PULSE 68–99; RESP 10–16; TEMP 36.2–36.5; O2SAT 93–100
[2022-08-08] MEDS: DEXTROSE 5%/LACTATED RINGERS 1,000 ML 125 ML IV CONT (05:31)
[2022-08-08 05:53] LABS: Basophils Percent Auto 0.2 % (0.2-1.2); Eosinophils Absolute Auto 0.1 K/mm3 (0-0.3); Eosinophils Percent Auto 0.6 % (0-4.4); Hematocrit 35.2 % (37.0-47.0); Hemoglobin 11.6 g/dL (12.0-15.0); Immature Granulocyte Absolute 0.08 K/mm3 (0.00-0.031); Immature Granulocyte Percent A 0.6 % (0-0.5); Lymphocytes Percent Auto 21.1 % (18.3-44.2); Mean Corpuscular Volume 81.9 fl (80-100); Mean Platelet Volume 9.5 fl (7.4-10.4); Monocytes Absolute Auto 0.8 K/mm3 (0.1-0.6); Monocytes Percent Auto 6.5 % (2.6-8.5); Neutrophils Absolute Auto 9.1 K/mm3 (1.3-6.7); Platelet Count Result 230 k/mm3 (150-375); Red Cell Distribution Width 13.7 % (11.5-14.5); White Blood Count 12.8 K/mm3 (4.5-10.0)
[2022-08-08] MEDS: MORPHINE SULFATE PCA (*CRX) 30 MG/30 ML SYR IV CONT (06:30)
[2022-08-08] MEDS: SIMETHICONE 80 MG TAB.CHEW PO (10:58)
[2022-08-08] MEDS: HYDROcodone/acetaminophen (*CRX) 5-325 MG TABLET 1 TAB PO (10:58)
[2022-08-08] MEDS: SERTRALINE HCL 50 MG TABLET 150 MG PO (10:58)
--- NOTE | 2022-08-08 11:35 | PM.GYNPNOP ---
CORONER TECHNICIAN - A/P Assessment and plan (1) Excessive bleeding: Code(s): R58 - Hemorrhage, not elsewhere classified Status: Acute Assessment and Plan: A: POD#1, s/p laparoscopic tubal sterilization, hysteroscopy, D&C, endometrial ablation. She had excessive postop pain, but clinically is much better now. Exam and labs OK. P: Home to f/u Dr. Hali Malik 2 weeks. (2) Sterilization: Code(s): Z30.2 - Encounter for sterilization Status: Acute Postoperative Procedures: Procedures Operation Date: 08/07/22 13:30 Actual Procedure Side Surgeon p Laparoscopic Bilateral Tubal Sterilization Bilateral Bryn Malik MD s Hysteroscopy, Dilation and Curettage, Pat Endometrial Ablation Bryn Malik MD Postoperative day: 1 Time Spent With Patient Time: Total time spent is greater than 50% in coordination of care (as documented) at patient's floor/unit and/or counseling patient: Time with patient: less than 15 minutes CORONER TECHNICIAN- PN:Subj Post-Op Subjective Date/time seen: 08/08/22 11:35 Interval history: She had excessive postop pain, so was observed overnight for pain control. This morning the SUB ACUTE CARE NURSE has been discontinued and she has received a dose of [place]. She says pain OK now. Tolerating diet. Voiding. Would like to go home. Exam Narrative: AVSS I/O OK ABD soft, nontender. Incisions c/d/i. EXT nontender CORONER TECHNICIAN - PN: Obj Data Vital Signs Vital Signs: Vital Signs - 24 hr 08/07/22 11:36 08/07/22 14:11 08/07/22 14:25 Temperature 37.1 C 37.2 C 36.7 C Pulse Rate 74 95 63 Respiratory Rate 16 12 13 Blood Pressure 124/71 124/64 131/64 Pulse Oximetry 99 95 98 Oxygen Delivery Room Air Simple Face Mask Simple Face Mask Oxygen Flow Rate 6 6 08/07/22 14:40 08/07/22 14:55 08/07/22 15:10 Temperature 36.6 C 36.3 C L Pulse Rate 63 65 66 Respiratory Rate 13 12 12 Blood Pressure 134/64 139/79 140/67 Pulse Oximetry 98 95 95 Oxygen Delivery Simple Face Mask Nasal Cannula Nasal Cannula Oxygen Flow Rate 6 2 2 08/07/22 15:25 08/07/22 15:39 08/07/22 16:10 Temperature Pulse Rate 82 62 62 Respiratory Rate 14 14 13 Blood Pressure 141/70 H 137/68 140/81 Pulse Oximetry 91 92 92 Oxygen Delivery Room Air Nasal Cannula Nasal Cannula Oxygen Flow Rate 2 2 08/07/22 16:25 08/07/22 16:40 08/07/22 16:55 Temperature Pulse Rate 58 L 60 58 L Respiratory Rate 14 14 14 Blood Pressure 148/59 H 146/60 H 148/59 H Pulse Oximetry 98 98 98 Oxygen Delivery Nasal Cannula Nasal Cannula Nasal Cannula Oxygen Flow Rate 2 2 2 08/07/22 17:10 08/07/22 18:00 08/07/22 18:22 Temperature Pulse Rate 60 62 60 Respiratory Rate 15 16 18 Blood Pressure 141/60 H 142/62 H 147/64 H Pulse Oximetry 97 98 96 Oxygen Delivery Nasal Cannula Nasal Cannula Nasal Cannula Oxygen Flow Rate 2 2 2 08/07/22 19:00 08/07/22 21:59 08/07/22 21:44 Temperature Pulse Rate 65 77 Respiratory Rate 14 18 18 Blood Pressure 152/63 H Pulse Oximetry 96 96 96 Oxygen Delivery Nasal Cannula Room Air Oxygen Flow Rate 2 08/07/22 22:42 08/07/22 23:00 08/07/22 22:59 Temperature 36.3 C L Pulse Rate 63 Respiratory Rate 16 17 Blood Pressure 143/65 H Pulse Oximetry 98 98 Oxygen Delivery Room Air Oxygen Flow Rate 08/07/22 23:59 08/08/22 00:00 08/08/22 00:59 Temperature 36.3 C L Pulse Rate 68 Respiratory Rate 16 14 16 Blood Pressure 131/69 Pulse Oximetry 98 95 95 Oxygen Delivery Oxygen Flow Rate 08/08/22 01:59 08/08/22 03:59 08/08/22 05:59 Temperature Pulse Rate Respiratory Rate 12 10 L 15 Blood Pressure Pulse Oximetry 95 93 96 Oxygen Delivery Oxygen Flow Rate 08/08/22 04:00 08/08/22 06:30 08/08/22 06:30 Temperature 36.5 C Pulse Rate 70 Respiratory Rate 15 12 12 Blood Pressure 124/62 Pulse Oximetry 96 96 96 Oxygen Delivery Oxygen Flow Rate 08/08/22 08:00 08/08/22 08:00 Temperature 36.2 C L Pulse Rate 71 Respiratory Rate 14
--- NOTE | 2022-08-08 11:39 | PM.DS ---
DS: Admitting Diagnosis Discharge Date 08/08/22 Admitting Diagnosis Menometrorrhagia, desired sterility. DS: Discharge Diagnosis Discharge Diagnosis (1) Excessive bleeding: Code(s): R58 - Hemorrhage, not elsewhere classified Status: Acute (2) Sterilization: Code(s): Z30.2 - Encounter for sterilization Status: Acute DS: Summary Hospital Course Hospital Course: Underwent surgery, see op note. Had unexpected postop pain and was observed overnight for pain control. Morphine BOOK CLEANER overnight, transitioned to oral pain meds the next morning. Able to go home on POD#1. Time Spent with Patient Time attestation: Total time spent providing and/or coordinating discharge services: DS: Data Data Completed and Pending Pending studies at discharge: Pending at discharge 08/07/22 13:57 Surgical [PTH] Routine Labs on day of discharge: Labs from last 24 hours 08/08/22 08/07/22 05:31 19:48 WBC 12.8 H RBC 4.30 Hgb 11.6 L Hct 35.2 L MCV 81.9 MCH 27.0 MCHC 33.0 RDW 13.7 Plt Count 230 MPV 9.5 Immature Gran % (Auto) 0.6 H Neut % (Auto) 71.0 Lymph % (Auto) 21.1 [place] % (Auto) 6.5 Eos % (Auto) 0.6 Baso % (Auto) 0.2 Lymph # (Auto) 2.70 [place] # (Auto) 0.8 H Eos # (Auto) 0.1 Baso # (Auto) 0.0 Abs Immat Gran (auto) 0.08 H Absolute Neuts (auto) 9.1 H Absolute Nucleated RBC 0.0 Nucleated RBC % 0.0 POC Capillary Glucose 153 H Discharge Plan Discharge Patient Disposition: Home, Self-Care Discharge Instructions: Some Complications to Watch for: ? Excessive incisional or vaginal drainage (more than one pad an hour). Additional Instructions: ? Expect some vaginal spotting for 2-4 days. ? Nothing vaginally (i.e. douching, intercourse, tampons) until follow up visit. Skin Adhesive Care Skin adhesive is medical glue used to close wounds. It is a substitute for lucy and stitches. Skin adhesive wound closures take less time and do not require anesthesia. You have less pain and a lower risk of infection than with lucy or stitches. Skin adhesive will fall off after the wound is healed. Discharge instructions: Keep wound clean and dry. You can shower 24 hours after adhesive is applied but do not soak in bath or hot tub until wound is healed or provider approves. Do not pick or scrub your wound or the adhesive. This can make your wound reopen. ?Do not apply ointments to your wound. These include antibiotic or other ointments that would contain petroleum jelly. These products will remove skin adhesive and reopen the wound. Contact your provider if you have a fever, your wound is red and warm to touch or have questions about your condition or care. Seek care immediately if your wound is draining fluid or open. Stand Alone Forms: General Discharge Instructions Follow-up/Referrals: Bryn Haley MD [Physician] - 2 Weeks Discharge Medications: New hydrocodone-acetaminophen 5-325 mg tablet 1 - 2 tablet PO Q6H PRN (Reason: pain) Qty: 30 0RF Continued zinc acetate 50 mg (zinc) Capsule 50 mg PO DAILY sertraline 100 mg tablet 150 mg PO DAILY prenat.vits,kimberli,[id number] Tablet 1 tablet PO DAILY cholecalciferol (vitamin D3) [Vitamin D3] 125 mcg (5,000 unit) Tablet 125 mcg PO DAILY Probiotic 15 billion cell Capsule 1 cap PO DAILY cetirizine [Zyrtec] 10 mg Tablet 10 mg PO DAILY amoxicillin-pot clavulanate 875-125 mg Tablet 1 tablet PO Q12H
== END 2022-08-08 13:25 | disposition home or self-care (01) ==
LOC: ANHSURGERY 14:34 → ANH3MEDSUR 20:26
PROVIDERS: Obstetrics & Gynecology; PCP Family Medicine; Visit Provider Obstetrics & Gynecology
PROC: (CPT 58671; principal; 2022-08-07 13:30)
PROC: 0U5B8ZZ Destruction of Endometrium, Via Natural or Artificial Opening Endoscopic (ICD-10-PCS; CPT 58563; 2022-08-07 13:30)
DX: Z30.2 Encounter for sterilization (principal); N93.9 Abnormal uterine and vaginal bleeding, unspecified; G89.18 Other acute postprocedural pain; Z79.899 Other long term (current) drug therapy
CPT/HCPCS: 58671; 58563; 36415; 82948; 85025; 88305; A4264; A9270; J0131; J1100; J1170; J1885; J2250; J2270; J2405; J2704; J2710; J3010; J7030; J7120; J7121

== ENCOUNTER 2023-01-12 11:13 | Emergency (ER) | payer OTHER, SELFPAY ==
[2023-01-12 11:15] VITALS: BP 129/88; PULSE 93; RESP 18; TEMP 37.7; O2SAT 100
[2023-01-12] MEDS: KETOROLAC 30 MG/ML VIAL (*BKC) IM (11:41)
[2023-01-12] MEDS: ACETAMINOPHEN 325 MG TABLET 650 MG PO (11:41)
[2023-01-12 11:46] LABS: Strep Group A RT-PCR DETECTED (Negative)
--- NOTE | 2023-01-12 12:23 | ED.URI ---
HPI - URI/Sore Throat General Chief Complaint: Upper Respiratory Infection Stated Complaint: sore throat Source: patient Mode of arrival: ambulatory Limitations: no limitations History of Present Illness HPI Narrative: patient is a 42-year-old female with a sore throat for the past 2 days. elicited complaint: fever Onset (ago): day(s) Consistency: constant Severity: moderate Pain scale (0-10): 5 Description of mucous: yellow Able to tolerate fluids by mouth: Yes Exacerbating factors: nothing Relieving factors: nothing Associated symptoms: fever and chills Treatments prior to arrival: acetaminophen and ibuprofen Related Data Allergies Allergy/AdvReac Type Severity Reaction Status Date / Time No Known Allergies Allergy Verified 01/12/23 11:29 Review of Systems Review of Systems: All systems reviewed & are unremarkable except as noted in HPI and below Constitutional: Constitutional: Reports no additional constitutional complaints Eyes: Eyes: Reports no additional eye complaints ENT: Reports system reviewed and no additional complaints, except as documented Cardiovascular: Cardiovascular: Reports no additional cardiovascular complaints Respiratory: Respiratory: Reports no additional respiratory complaints Gastrointestinal: Gastrointestinal: Reports no additional gastrointestinal complaints Genitourinary: Genitourinary: Reports no additional female genitourinary complaints Musculoskeletal: Musculoskeletal: Reports no additional musculoskeletal complaints Integumentary/Breasts: Skin/Breast: Reports system reviewed and no additional complaints, except as docu Neurologic: Reports system reviewed and no additional complaints, except as documented Psychiatric: Psychiatric: Reports no additional psychiatric complaints Endocrine: Endocrine: Reports no additional endocrine complaints Hematologic/Lymphatic: Hematologic/Lymphatic: Reports no additional hematologic/lymphatic complaints Allergic/Immunologic: Allergic/Immunologic: Reports no additional allergic/immunologic complaints PMFSH Past Medical History Medical History History of anxiety Hypercholesterolemia Kidney stones, calcium oxalate Overweight (BMI 25.0-29.9) Surgical History Surgical History History of History of mandibular surgery History of shoulder surgery Hx laparoscopic cholecystectomy S/P appendectomy Family History Family History Mother Hypertension Family history of kidney stones Father Cerebrovascular accident Family history of type 2 diabetes mellitus Grandparent Cerebrovascular accident Family history of malignant neoplasm of breast Other Family history of allergic disorder Family history of malignant neoplasm Social History Social History Smoking status: Never smoker Alcohol intake: never Substance use: never Substance use type: does not use Lack of Transportation: No Lack of Food: Never True Current Housing: I Have Housing Concerned About Future Housing: No Difficulty Paying Gas/Electric Bills: No Difficulty Paying for Meds: No Currently Unemployed: No Education: Decline to Answer Difficulty w/ Childcare or Family Care: No Living arrangements: with family Additional living arrangements comments: CHILDREN Gender identity (if verbalized by the patient): Female Sexual Orientation (if Verbalized by the Patient): Straight or Heterosexual Spiritual care concerns: No Exam Const: General: healthy appearing Nutritional Appearance: well nourished Orientation/consciousness: patient oriented x3 HENMT: Head: normal to inspection Other: Posterior oropharynx has red enlarged tonsils left greater than right with pus Eyes: Conjunctivae: conjunctivae
[2023-01-12] MEDS: predniSONE 20 MG TABLET PO (12:28)
[2023-01-12 12:37] VITALS: TEMP 37.4
[2023-01-12 12:38] VITALS: TEMP 37.4
== END 2023-01-12 12:37 | disposition home or self-care (01) ==
PROVIDERS: Emergency Provider Emergency Medicine; PCP Family Medicine
DX: J02.0 Streptococcal pharyngitis (principal)
CPT/HCPCS: 87651; 96372; 99283; A9270; J1885; J7512

== ENCOUNTER 2023-02-06 20:05 | Emergency (ER) | payer OTHER, SELFPAY ==
--- NOTE | ~2023-02-06 | CT_ITS ---
Non-contrast CT scan of the Abdomen and Pelvis Clinical indication: Right flank pain Technique: 2.5 mm axial scans were obtained through the abdomen and pelvis without intravenous or or al contrast. Dose reduction technique was used on this scan by utilizing automated exposure control a nd iterative reconstruction technique. The dose-length product (DLP) was 194.58 mGy-cm. COMPARISON: 02/06/2021 Findings: Images through the lung bases reveal no abnormalities. There is no evidence of renal or ureteral calculi. The kidneys and the ureters are nondilated. The liver, spleen, pancreas, and adrenals appear normal. Cholecystectomy clips are present. There is no aortic aneurysm. Persistent left IVC noted. There is no evidence of bowel obstruction. No right lower quadrant inflammatory change seen. Images through the pelvis were performed. There is no evidence of ascites or lymphadenopathy. Urinary bladder unremarkable. No abnormal adnexal mass evident. Impression: No significant abnormality seen. Reviewed, dictated and finalized at [facility]. Impression: No significant abnormality seen.
[2023-02-06 20:05] VITALS: BP 140/77; PULSE 82; RESP 18; TEMP 37.1; O2SAT 98
--- NOTE | 2023-02-06 20:19 | ED.ABDPAIN ---
HPI - Abdominal Pain General Chief Complaint: Urogenital-Female Stated Complaint: Kidney Stones Source: patient Mode of arrival: ambulatory Limitations: no limitations History of Present Illness HPI narrative: 42-year-old female with a history of recurrent kidney stones, recurrent urinary tract infections, status post BTL presents to the ER with a 3 week history of -- right flank pain -- suprapubic pain -- dysuria and hematuria MD elicited complaint: flank pain Pertinent past history: kidney stones and past UTI Onset (ago): week(s) ( symptoms started 3 weeks ago) Pain Consistency: intermittent Location: R flank Severity: severe Quality: aching Radiation: RLQ Migration to: no migration Exacerbating factors: nothing Relieving factors: nothing Associated symptoms: denies other symptoms Treatments prior to arrival: NSAIDs Related Data Allergies Allergy/AdvReac Type Severity Reaction Status Date / Time No Known Allergies Allergy Verified 01/12/23 11:29 Review of Systems Review of Systems: All systems reviewed & are unremarkable except as noted in HPI and below Constitutional: Constitutional: Reports as per HPI and Reports no additional constitutional complaints Eyes: Eyes: Reports as per HPI and Reports no additional eye complaints ENT: Reports system reviewed and no additional complaints, except as documented and Reports as per HPI Cardiovascular: Cardiovascular: Reports as per HPI and Reports no additional cardiovascular complaints Respiratory: Respiratory: Reports as per HPI and Reports no additional respiratory complaints Gastrointestinal: Gastrointestinal: Reports as per HPI and Reports no additional gastrointestinal complaints Genitourinary: Genitourinary: Reports no additional female genitourinary complaints, Reports as per HPI and Reports flank pain Comments: right flank pain 3 weeks ago which has moved to the suprapubic region. Musculoskeletal: Musculoskeletal: Reports no additional musculoskeletal complaints and Reports as per HPI Integumentary/Breasts: Skin/Breast: Reports system reviewed and no additional complaints, except as docu and Reports as per HPI Neurologic: Reports system reviewed and no additional complaints, except as documented and Reports as per HPI Psychiatric: Psychiatric: Reports no additional psychiatric complaints and Reports as per HPI Endocrine: Endocrine: Reports no additional endocrine complaints and Reports as per HPI Hematologic/Lymphatic: Hematologic/Lymphatic: Reports no additional hematologic/lymphatic complaints and Reports as per HPI Allergic/Immunologic: Allergic/Immunologic: Reports no additional allergic/immunologic complaints and Reports as per HPI [facility] Past Medical History Medical History History of anxiety Hypercholesterolemia Kidney stones, calcium oxalate Overweight (BMI 25.0-29.9) Surgical History Surgical History History of History of mandibular surgery History of shoulder surgery Hx laparoscopic cholecystectomy S/P appendectomy Family History Family History Mother Hypertension Family history of kidney stones Father Cerebrovascular accident Family history of type 2 diabetes mellitus Grandparent Cerebrovascular accident Family history of malignant neoplasm of breast Other Family history of allergic disorder Family history of malignant neoplasm Social History Social History Smoking status: Never smoker Alcohol intake: never Substance use: never Substance use type: does not use Lack of Transportation: No Lack of Food: Never True Current Housing: I Have Housing Concerned About Future Housing: No Difficulty Paying Gas/Electric Bills: No Difficulty Paying for Meds: No Currently Unemploy
[2023-02-06 21:02] LABS: Basophils Absolute Auto 0.04 K/mm3 (0.00-0.10); Basophils Percent Auto 0.5 % (0.0-1.0); Eosinophils Absolute Auto 0.09 K/mm3 (0.02-0.50); Eosinophils Percent Auto 1.1 % (1.0-6.0); Hematocrit 36.7 % (35.0-49.0); Hemoglobin 12.2 g/dL (12.0-15.0); Immature Granulocyte Absolute 0.04 K/mm3 (0.00-0.00); Immature Granulocyte Percent A 0.5 % (0.0-0.0); Lymphocytes Absolute Auto 3.39 K/mm3 (1.10-4.50); Lymphocytes Percent Auto 40.1 % (18.0-42.0); Mean Corpuscular HGB Conc 33.2 g/dL (32.0-36.0); Mean Corpuscular Volume 84.4 fL (78.0-102.0); Mean Platelet Volume 9.4 fl (9.2-11.8); Monocytes Absolute Auto 0.66 K/mm3 (0.10-0.90); Monocytes Percent Auto 7.8 % (2.0-11.0); Neutrophils Absolute Auto 4.2 K/mm3 (1.7-7.2); Platelet Count Result 210 K/mm3 (150-420); Red Blood Count 4.35 M/mm3 (4.20-5.40); Red Cell Distribution Width 13.8 % (11.6-14.4); White Blood Count 8.5 K/mm3 (4.8-10.8)
[2023-02-06 21:16] LABS: Alanine Aminotransferase 30 U/L (14-59); Alkaline Phosphatase 72 U/L (46-116); Anion Gap 11 mmol/L (8-16); Aspartate Amino Transferase 12 U/L (15-37); Bilirubin,Total 0.5 mg/dL (0.00-1.00); Blood Urea Nitrogen 10 mg/dL (7-18); Carbon Dioxide 27 mmol/L (21-32); Chloride 103 mmol/L (98-108); Estimated CRCL calculation 76 ml/min; Estimated Glomerular Filt Rate > 60; Glucose 109 mg/dL (70-99); Lipase 26 U/L (16-77); Osmolality Calculated 292 mOsm/kg (285-295); Potassium 3.2 mmol/L (3.5-5.1); Sodium 141 mmol/L (136-145); Total Protein 7.2 g/dL (6.4-8.2)
[2023-02-06] MEDS: LACTATED RINGERS 1,000 ML 999 ML IV CONT (21:16)
[2023-02-06 21:20] LABS: Appearance Urine Clear (Clear); Bilirubin Urine Negative (Negative); Blood Urine 3+ (Negative); Color Urine Yellow (Yellow); Glucose Urine UA Negative (Negative); Ketones Urine Negative (Negative); Leukocyte Esterase Ur Trace LEU/UL (Negative); Nitrate Urine Negative (Negative); Protein Urine 2+ (Negative); Specific Grav Ur >= 1.030 (1.010-1.020); Urobilinogen Urine 0.2 mg/dL (0.2-1.0)
[2023-02-06 21:21] LABS: Lactic Acid Reflex 2.7 mmol/L (0.4-2.0)
[2023-02-06 21:28] LABS: Add Urine Microscopic? YES; RBC Urine >100 /hpf (0-2); WBC Urine 0-3 /hpf (0-3)
[2023-02-06 21:29] LABS: Bacteria Urine 1+ /hpf; Mucus Urine Heavy /lpf; Squamous Epithelial Cell Urine Many /hpf (Few)
[2023-02-06 21:30] VITALS: BP 127/88; PULSE 70; RESP 18; O2SAT 95
== END 2023-02-06 21:58 | disposition home or self-care (01) ==
PROVIDERS: Emergency Provider Internal Medicine Critical Care Medicine; PCP Family Medicine
DX: R10.9 Unspecified abdominal pain (principal); R31.9 Hematuria, unspecified
CPT/HCPCS: 36415; 74176; 80053; 81001; 83605; 83690; 85025; 96360; 99284; J7120

== ENCOUNTER 2023-02-10 12:29 | Outpatient (CLI) | payer OTHER, SELFPAY | END 2023-02-10 12:30 | disposition home or self-care (01) | LOC: ANHSURGERY 12:32 | PROVIDERS: PCP Family Medicine; Visit Provider Obstetrics & Gynecology | DX: N81.4 Uterovaginal prolapse, unspecified (principal) | CPT/HCPCS: 36415; 86850; 86900; 86901 ==

== ENCOUNTER 2023-02-12 02:53 | Day surgery (SDC) | payer OTHER, SELFPAY ==
[2023-02-09 16:28] VITALS: BMI 27.4
--- NOTE | 2023-02-09 16:43 | SUR.PREOP ---
Report to the Outpatient Waiting Room, entrance under the green pavilion located off [facility], at time 0830 on date _02/12/23_. Planned Procedure Time: __1030__. Time changes happen often and if your time is changed the preop area will call you the afternoon before. - You and your visitor will be asked to self-screen and do not enter if you have any COVID symptoms. - A mask is optional within the hospital at this time. Patients may have clear liquids (water, carbonated beverages, clear teas, apple juice) until 3 hours prior to surgery with a maximum of 20 ounces. - No food from midnight until time of surgery before 0730 am - Infants may have breast milk until 4 hours before surgery, infant formula 6 hours prior to surgery. - Children will be allowed to drink immediately following surgery. If applicable, please bring a bottle or sippy cup to assist with drinking. Juice, water, soda, and popsicles are readily available. For infants on formula, please bring formula the day of surgery. Pacifiers are allowed. Take the following medications with a SIP of water the morning of surgery: ___lexapro DO NOT STOP ANY OF YOUR OTHER PRESCRIPTION MEDICATIONS PRIOR TO SURGERY ?EXCEPT THE FOLLOWING Medications to discontinue per physician ___vitamins and supplements 3 days prior Date to take last dose Please no make-up, nail arabic, hairspray, perfume, deodorant, or body powder the day of surgery. No jewelry (including any body piercings) or valuables the day of surgery, leave them at home. Please take a shower or bath the night before, or the morning of, surgery with an antibacterial soap. Wear comfortable, loose fitting clothing. Children are encouraged to wear pajamas. - Jewelry must be removed prior to entering the operating room. Rings and piercings that are not removed may be cut off. - The hospital will not accept responsibility for valuables. - Please leave all valuables, including medications, at home the day of surgery. If you are going home after surgery, a licensed school boat driver must drive you home. - NO public transportation without another adult if you receive anesthesia. - We recommend that an adult stay with you for 24 hours following discharge. - We also recommend that you do not drive, make important decision, drink alcoholic beverages, or take any drugs that were not prescribed by your health care provider for at least 24 hours after your discharge time. For Pediatric surgeries, we recommend two adults accompany the child home. Follow any additional instructions given to you from your surgeon. If you or anyone in your household have experienced Covid symptoms in the past week, please notify your surgeon or the nurse liaison at the phone number below for possible testing. Telephone instructions given to _patient____and asked if any additional questions and then verbalized understanding. Patient advised to call surgeon office or pre surgery nurse liaison [phone] if any additional questions.
--- NOTE | 2023-02-10 16:45 | PM.IMHP ---
H&P: HPI History of Present Illness Date/Time: 02/10/23 16:45 Chief Complaint: failed ablation/heavy bleeding/uterine prolapse Narrative: this 42-year-old female with a failed ablation is admitted for total vaginal hysterectomy bilateral salpingectomy via robot secondary to the continued bleeding. She also has a second-degree prolapse. Risks and benefits of this procedure reviewed including not exclusive of , aspiration pneumonia, bleeding, transfusion, perforation of bowel, bladder, ureters, or other internal organs with the need for open laparotomy. 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 She signed the [facility] family services hysterectomy formed. She had all questions answered. She asked to proceed PMFSH Past Medical History Medical History History of anxiety Hypercholesterolemia Kidney stones, calcium oxalate Overweight (BMI 25.0-29.9) Surgical History Surgical History History of History of mandibular surgery History of shoulder surgery Hx laparoscopic cholecystectomy S/P appendectomy Family History Family History Mother Hypertension Family history of kidney stones Father Cerebrovascular accident Family history of type 2 diabetes mellitus Grandparent Cerebrovascular accident Family history of malignant neoplasm of breast Other Family history of allergic disorder Family history of malignant neoplasm Social History Social History Smoking status: Never smoker Alcohol intake: never Substance use: never Substance use type: does not use Lack of Transportation: No Lack of Food: Never True Current Housing: I Have Housing Concerned About Future Housing: No Difficulty Paying Gas/Electric Bills: No Difficulty Paying for Meds: No Currently Unemployed: No Education: Decline to Answer Difficulty w/ Childcare or Family Care: No Living arrangements: with family Additional living arrangements comments: CHILDREN Gender identity (if verbalized by the patient): Female Sexual Orientation (if Verbalized by the Patient): Straight or Heterosexual Spiritual care concerns: No Meds Home Medications and Allergies Home Medications Medication Instructions Recorded Confirmed Type acidophilus 100 million 1 cap PO DAILY 02/09/23 02/09/23 History cell-pectin, citrus 10 mg capsule escitalopram oxalate 10 mg tablet 10 mg PO DAILY 02/09/23 02/09/23 History fexofenadine 30 mg tablet 180 mg PO DAILY 02/09/23 02/09/23 History multivitamin 1 tablet PO DAILY 02/09/23 02/09/23 History Allergies Allergy/AdvReac Type Severity Reaction Status Date / Time No Known Allergies Allergy Verified 02/09/23 14:49 Exam Const: General: cooperative, healthy appearing, comfortable and overweight Orientation/consciousness: oriented to person, oriented to place and oriented to time HENMT: Head: normal to inspection Resp: Effort & Inspection: normal respiratory effort Cardio: Rate: regular rate Rhythm: regular rhythm Heart sounds: S1 normal heart sound present and S2 normal heart sound present GI: Inspection: normal to inspection Auscultation: normal bowel sounds : External Female Exam: normal external appearance Speculum Exam - Vagina: normal appearance of the vagina Speculum Exam - Cervix: normal appearance of the cervix ( second-degree prolapse) Bimanual exam- vagina & uterus: enlarged Bimanual Exam- Adnexa, other: normal adnexae Assessment and Plan Assessment and plan (1) Excessive bleeding: Code(s): R58 - Hemorrhage, not elsewhere classified Status: Acute (2) Uterine prolapse: Code(s): N81.4 - Uterovaginal prolapse, unspecified Stat
[2023-02-12] VITALS (12 sets, daily range): BP systolic 125–148; BP diastolic 71–87; PULSE 59–90; RESP 12–18; TEMP 36.8–37.3; O2SAT 86–100
--- NOTE | 2023-02-12 06:41 | WPDHPUPDATE1 ---
History and Physical Update Update Date/Time: 02/12/23 06:41 History and Physical has been reviewed, including an updated exam of the patient. There are NO changes in the patient's condition. Risks, benefits, and alternatives have been discussed and questions answered. Patient agrees to proceed with procedure.
[2023-02-12] MEDS: ACETAMINOPHEN 500 MG TABLET 1000 MG PO (08:55)
[2023-02-12] MEDS: KETOROLAC 15 MG/ML VIAL (*BKC) IV PUSH (09:22)
--- NOTE | 2023-02-12 09:36 | WPDANESEPPF ---
Anes - Initial Pre Proc Eval Procedure: Operation Date: 02/12/23 10:30 Proposed Procedures p Robotic Assisted Total Vaginal Hysterectomy with Bilateral Salpingectomy - Bryn Malik MD Date/Time: 02/12/23 09:36 Surgeon: Bryn Malik MD Pre Op Diagnosis: failed abl, uterine prolapse, heavy bleeding,pain Patient Data Age: 42 Gender: F Height: 1.68 m Weight: 76.8 kg Last Vital Signs Temp 37.0 C 02/12/23 09:24 Pulse 67 02/12/23 09:24 Resp 16 02/12/23 09:24 BP 138/72 02/12/23 09:24 Pulse Ox 97 02/12/23 09:24 O2 Del Method Room Air 02/12/23 09:24 Allergies Allergy/AdvReac Type Severity Reaction Status Date / Time No Known Allergies Allergy Verified 02/09/23 14:49 Home Medications Medication Instructions Recorded Confirmed Type acidophilus 100 million 1 cap PO DAILY 02/09/23 02/12/23 History cell-pectin, citrus 10 mg capsule escitalopram oxalate 10 mg tablet 10 mg PO DAILY 02/09/23 02/12/23 History fexofenadine 30 mg tablet 180 mg PO DAILY 02/09/23 02/12/23 History multivitamin 1 tablet PO DAILY 02/09/23 02/12/23 History hydrocodone 5 mg-acetaminophen 325 1 tablet PO Q4H PRN pain #20 tabs 02/12/23 Rx mg tablet Patient hx anesthesia problems: none Family hx anesthesia problems: none Results Review: All pre-operative results and documents have been reviewed as part of the pre-operative evaluation. [facility] Past Medical History Medical History History of anxiety Hypercholesterolemia Kidney stones, calcium oxalate Overweight (BMI 25.0-29.9) Surgical History Surgical History History of History of mandibular surgery History of shoulder surgery Hx laparoscopic cholecystectomy S/P appendectomy Family History Family History Mother Hypertension Family history of kidney stones Father Cerebrovascular accident Family history of type 2 diabetes mellitus Grandparent Cerebrovascular accident Family history of malignant neoplasm of breast Other Family history of allergic disorder Family history of malignant neoplasm Social History Social History Smoking status: Never smoker Alcohol intake: never Substance use: never Substance use type: does not use Lack of Transportation: No Lack of Food: Never True Current Housing: I Have Housing Concerned About Future Housing: No Difficulty Paying Gas/Electric Bills: No Difficulty Paying for Meds: No Currently Unemployed: No Education: Decline to Answer Difficulty w/ Childcare or Family Care: No Living arrangements: with family Additional living arrangements comments: CHILDREN Gender identity (if verbalized by the patient): Female Sexual Orientation (if Verbalized by the Patient): Straight or Heterosexual Spiritual care concerns: No Anes - Eval Final PreProcedure Day of Procedure 02/12/23 09:36 Patient weight: overweight Heart: regular rate and rhythm Lungs: clear to auscultation Airway: Mallampati scale class II Neurological: alert and oriented Last oral intake: >/= 8 hours ASA classification: III Emergent: no Anesthetic plan: proceed Anesthesia type and monitoring: general ETT and standard monitoring Results Review: All pre-operative results and documents have been reviewed as part of the pre-operative evaluation. Informed Consent: The patient's anesthetic plan and its attendant risks and benefits were discussed with the patient/family/POA. Questions were solicited and answers provided to the satisfaction of the patient/family/POA.
[2023-02-12] MEDS: ceFAZolin 2 GM/D5W 50 ML 2 GM/50 ML BAG IVPB (10:08)
--- NOTE | 2023-02-12 11:22 | P.OP_ITS ---
Procedure Note - Detailed Date of Procedure 02/12/23 Pre-op Diagnosis failed abl, uterine prolapse, heavy bleeding,pain Post-op Diagnosis Same Procedure Performed Robotic total hysterectomy and bilateral salpingectomy Surgeon Bryn Malik MD Anesthesia General Indications 42-year-old female with failed ablation pain bleeding Findings Enlarged uterus. Tubes status post tubal ligation. Normal-appearing ovaries Description of Procedure Patient was prepped draped in normal sterile fashion placed in the dorsal lithotomy position. Under excellent general trach anesthesia weighted speculum placed in posterior fornix vagina. Anterior lip of the cervix grasped with single-tooth tenaculum. Uterus sounded to 10cm. Serial dilatation with fragmented dilators performed followed passage of the 10. PEDRITO and the 3. 0.5 cold cup. Next the 16 Bulgarian catheter was inserted in the bladder and drained of clear urine. The weighted speculum was removed. The gloves were changed. A supraumbilical incision made the Veress needle passed in the abdomen. Abdomen filled with CO2 gas [id number]. The 8mm trocar advanced in the abdomen. Downside visualized no injury seen. Patient placed in Trendelenburg and right left lateral quadrant incisions made. 8mm trocars advanced under direct visualization. Right upper quadrant incision made the 8mm trocar advanced under direct visualization assuring no injury. The robot was docked. Attention was turned to the consumer credit counselor. The left round ligament was grasped, burned, cut. A bladder flap was formed by sharply dissecting the peritoneum and reflecting the bladder caudally away from the cervix and uterus to the opposite round ligament was clamped, burned, cut. The round ligament was grasped on the right clamped cut and burned. Next the left fallopian tube was skeletonized in removed from its attachment to the ovary. It was left attached at the uterine origin. This was completed on the opposite side with the right tube. Utero- ovarian ligament on the left was skeletonized to conserve the left ovary was clamped, burned, cut and brought to the level of previously cut round ligament. Conserving the right ovary, the utero-ovarian ligaments were clamped, burned, cut. This was brought to the level of previously cut round ligament. Next the cardinal broad ligaments on the left were skeletonized clamping burning cutting and hugging the cervix uterus and to the uterine vessels could be seen on the left. These were large and tortuous and individually clamped, burned, cut. In like fashion the cardinal broad ligaments on the right were skeletonized clamping burning cutting and hugging the cervix uterus until the uterine vessels were seen on the right. These were individually clamped, burned, cut. Blanching the uterus was noted the colpotomy incision made. Cervix uterus tubes were removed through the vagina. The vagina was then closed with continuous running 0V lock from lateral edge to lateral edge back to the midline. Hemostasis was assured. The robot was undocked. The gas removed from the abdomen. The trocars removed and the incisions closed with 4-0 Monocryl and glue. Patient went to recovery in satisfactory condition. All sponge, needle, instrument counts were correct. There were no immediate complications noted Estimated Blood Loss 25 Drains No Packing No Pathology Yes Complications No immediate complications Condition Stable Disposition PACU
--- NOTE | 2023-02-12 11:28 | PM.DS ---
DS: Admitting Diagnosis Discharge Date 02/13/2023 Admitting Diagnosis Uterine prolapse/vaginal bleeding DS: Discharge Diagnosis Discharge Diagnosis (1) Uterine prolapse: Code(s): N81.4 - Uterovaginal prolapse, unspecified Status: Acute (2) Excessive bleeding: Code(s): R58 - Hemorrhage, not elsewhere classified Status: Acute DS: Summary Hospital Course Reason for hospitalization: Patient was admitted 02/12/2023 for robotic hysterectomy bilateral salpingectomy Hospital Course: Patient underwent an unremarkable robotic total vaginal hysterectomy and bilateral salpingectomy on 02/12/2023. Her hospital course thereafter was unremarkable. She remained afebrile. She was up, voiding without difficulty, eating regular diet, ambulating, and generally without complaints. Time Spent with Patient Time attestation: Total time spent providing and/or coordinating discharge services: Exam Const: General: cooperative, healthy appearing and comfortable Nutritional Appearance: average body habitus Orientation/consciousness: oriented to person, oriented to place and oriented to time HENMT: Head: normal to inspection Resp: Effort & Inspection: normal respiratory effort Cardio: Rate: regular rate Rhythm: regular rhythm Heart sounds: S1 normal heart sound present and S2 normal heart sound present GI: Inspection: normal to inspection and incision (Wounds are clear dry and intact) DS: Data Data Completed and Pending Pending studies at discharge: Pending at discharge 02/12/23 10:49 Surgical [PTH] Routine Discharge Plan Discharge Patient Disposition: Home, Self-Care Stand Alone Forms: General Discharge Instructions Follow-up/Referrals: Bryn Haley MD [Physician] - Discharge Medications: New hydrocodone-acetaminophen 5-325 mg tablet 1 tablet PO Q4H PRN (Reason: pain) Qty: 20 0RF No Action escitalopram oxalate 10 mg tablet 10 mg PO DAILY acidophilus-pectin, citrus [Acidophilus Probiotic] 100 million cell-10 mg Capsule 1 cap PO DAILY multivitamin Tablet 1 tablet PO DAILY Chanda 30 mg Tablet 180 mg PO DAILY
[2023-02-12] MEDS: LACTATED RINGERS 1,000 ML 30 ML IV CONT (11:31)
[2023-02-12] MEDS: fentaNYL CITRATE INJ (*CRX) 100 MCG/2 ML VIAL 25 MCG IV PUSH ×8 (11:37→12:28)
[2023-02-12] MEDS: diphenhydrAMINE HCl INJ 50 MG/ML VIAL 25 MG IV PUSH (12:18)
--- NOTE | 2023-02-12 13:05 | PC.NURSE ---
This patient, Huong Weems, was received from PACU on 02/12/23 at 1305. Patient/family oriented to unit policies and routines
[2023-02-12] MEDS: DEXTROSE 5%/LACTATED RINGERS 1,000 ML 125 ML IV CONT (13:25)
[2023-02-12] MEDS: SIMETHICONE 80 MG TAB.CHEW PO ×2 (13:35→15:40)
[2023-02-12] MEDS: KETOROLAC 30 MG/ML VIAL (*BKC) IV PUSH ×2 (13:35→19:35)
[2023-02-12] MEDS: HYDROcodone/acetaminophen (*CRX) 10-325 MG TABLET 1 TAB PO ×3 (15:40→23:29)
[2023-02-12] MEDS: ONDANSETRON INJ 4 MG/2 ML VIAL IV PUSH (17:28)
[2023-02-12] MEDS: DOCUSATE SODIUM 100 MG CAPSULE PO (19:37)
[2023-02-13] VITALS: BP 126/71; PULSE 72; RESP 18; TEMP 36.7; O2SAT 97
[2023-02-13 04:00] VITALS: BP 123/73; PULSE 68; RESP 18; TEMP 36.9; O2SAT 99
[2023-02-13] MEDS: HYDROcodone/acetaminophen (*CRX) 5-325 MG TABLET 1 TAB PO ×2 (04:26→10:18)
[2023-02-13] MEDS: IBUPROFEN 600 MG TABLET PO (04:26)
[2023-02-13 04:53] LABS: Basophils Absolute Auto 0.1 K/mm3 (0.0-0.1); Basophils Percent Auto 0.4 % (0.2-1.2); Eosinophils Absolute Auto 0.1 K/mm3 (0-0.3); Hematocrit 36.3 % (37.0-47.0); Immature Granulocyte Absolute 0.07 K/mm3 (0.00-0.031); Immature Granulocyte Percent A 0.6 % (0-0.5); Lymphocytes Absolute Auto 3.04 K/mm3 (0.9-3.2); Lymphocytes Percent Auto 24.9 % (18.3-44.2); Mean Corpuscular HGB Conc 33.1 g/dl (32-36); Mean Corpuscular Hemoglobin 28.4 pg (26-34); Mean Corpuscular Volume 85.8 fl (80-100); Monocytes Absolute Auto 0.8 K/mm3 (0.1-0.6); Monocytes Percent Auto 6.6 % (2.6-8.5); Neutrophils Absolute Auto 8.1 K/mm3 (1.3-6.7); Neutrophils Percent Auto 66.5 % (45.5-73.1); Platelet Count Result 205 k/mm3 (150-375); Red Blood Count 4.23 M/mm3 (4.2-5.4); Red Cell Distribution Width 13.8 % (11.5-14.5); White Blood Count 12.2 K/mm3 (4.5-10.0)
--- NOTE | 2023-02-13 07:02 | PM.GYNPNOP ---
TIME STUDY TECHNICIAN - A/P Postoperative Procedures: Procedures Operation Date: 02/12/23 10:30 Actual Procedure Side Surgeon p Robotic Assisted Total Vaginal Hysterectomy with Bilateral Salpingectomy Bilateral Bryn Malik MD Postoperative day: 1 Postoperative status: doing well Postoperative plan: routine post-op care, see orders, advance diet and discharge Time Spent With Patient Time: Total time spent is greater than 50% in coordination of care (as documented) at patient's floor/unit and/or counseling patient: Time with patient: less than 15 minutes TIME STUDY TECHNICIAN- PN:Subj Post-Op Subjective Date/time seen: 02/13/23 07:02 Subjective: patient reports feeling better, patient has no complaints, pain is well controlled and patient is tolerating oral intake Exam Const: General: cooperative, healthy appearing and comfortable Nutritional Appearance: average body habitus Resp: Effort & Inspection: normal respiratory effort Cardio: Rate: regular rate Rhythm: regular rhythm Heart sounds: S1 normal heart sound present and S2 normal heart sound present GI: Inspection: normal to inspection and incision (cdi) TIME STUDY TECHNICIAN - PN: Obj Data Vital Signs Vital Signs: Vital Signs - 24 hr 02/12/23 09:24 02/12/23 11:31 02/12/23 11:45 Temperature 98.6 F 98.3 F Pulse Rate 67 90 73 Respiratory Rate 16 16 16 Blood Pressure 138/72 130/87 128/75 Pulse Oximetry 97 100 98 Oxygen Delivery Room Air Simple Face Mask Simple Face Mask Oxygen Flow Rate 8 6 02/12/23 12:00 02/12/23 12:08 02/12/23 12:12 Temperature Pulse Rate 76 Respiratory Rate 12 Blood Pressure 135/71 Pulse Oximetry 99 86 L Oxygen Delivery Simple Face Mask Room Air Nasal Cannula Oxygen Flow Rate 6 3 02/12/23 12:15 02/12/23 12:30 02/12/23 12:45 Temperature Pulse Rate 70 83 80 Respiratory Rate 12 12 14 Blood Pressure 125/74 136/79 140/79 Pulse Oximetry 97 99 100 Oxygen Delivery Nasal Cannula Nasal Cannula Nasal Cannula Oxygen Flow Rate 3 3 3 02/12/23 12:55 02/12/23 15:53 02/12/23 13:25 Temperature 98.7 F 98.7 F Pulse Rate 72 59 L 61 Respiratory Rate 14 18 16 Blood Pressure 137/78 135/79 148/85 H Pulse Oximetry 98 96 100 Oxygen Delivery Nasal Cannula Oxygen Flow Rate 3 02/12/23 13:25 02/12/23 15:53 02/12/23 21:00 Temperature 99.2 F Pulse Rate 59 L 76 Respiratory Rate 18 18 Blood Pressure 128/71 Pulse Oximetry 100 96 95 Oxygen Delivery Nasal Cannula Room Air Oxygen Flow Rate 2 02/13/23 00:00 02/13/23 04:00 Temperature 98.1 F 98.4 F Pulse Rate 72 68 Respiratory Rate 18 18 Blood Pressure 126/71 123/73 Pulse Oximetry 97 99 Oxygen Delivery Oxygen Flow Rate Intake/Output Intake/Output: Intake & Output 02/10/23 02/11/23 02/12/23 02/13/23 23:59 23:59 23:59 23:59 Intake Total 2200 Output Total 2070 Balance 130 Meds/Results Medications: Active Medications Generic Name Dose Route Start Last Admin Trade Name Freq PRN Reason Stop Dose Admin Hydrocodone Bitart/Acetaminophen 1 tab 02/12/23 12:56 02/13/23 04:26 Hydrocodone/Acetaminophen (*Crx) 5-325 Mg Tablet PO 1 tab Q3H PRN Administration Pain Rated 5 or Less Hydrocodone Bitart/Acetaminophen 1 tab 02/12/23 12:56 02/12/23 23:29 Hydrocodone/Acetaminophen (*Crx) 10-325 Mg Tablet PO 1 tab Q3H PRN Administration Pain Rated 6 or Greater Docusate Sodium 100 mg 02/12/23 17:00 02/12/23 19:37 Docusate Sodium 100 Mg Capsule PO 100 mg BID EILEEN Administration Enoxaparin Sodium 40 mg 02/13/23 09:00 Enoxaparin 40 Mg/0.4 Ml Syringe SUB-Q DAILY EILEEN Ibuprofen 600 mg 02/12/23 12:56 02/13/23 04:26 Ibuprofen 600 Mg Tablet PO 600 mg Q6H PRN Administration Cramping Ketorolac Tromethamine 30 mg 02/12/23 12:56 02/12/23 19:35 Ketorolac 30 Mg/Ml Vial (*Bkc) IV PUSH 02/17/23 12:55 30 mg Q6H PRN Administration Pain Rated 4-6 Naloxone HCl 0.1 mg 02/12/23 12:56 Naloxone Hcl 0.4 Mg/Ml Vial
[2023-02-13 10:15] VITALS: BP 116/68; PULSE 77; RESP 16; TEMP 37.2; O2SAT 100
[2023-02-13] MEDS: DOCUSATE SODIUM 100 MG CAPSULE PO (10:16)
[2023-02-13] MEDS: ENOXAPARIN 40 MG/0.4 ML SYRINGE SUB-Q (10:16)
== END 2023-02-13 10:50 | disposition home or self-care (01) ==
LOC: ANHSURGERY 08:43 → ANHOB2 13:13
PROVIDERS: PCP Family Medicine; Visit Provider Obstetrics & Gynecology
PROC: (CPT 58571; principal; 2023-02-12 10:30)
DX: N81.4 Uterovaginal prolapse, unspecified (principal); N93.9 Abnormal uterine and vaginal bleeding, unspecified; R10.2 Pelvic and perineal pain; Z98.51 Tubal ligation status; F41.9 Anxiety disorder, unspecified
CPT/HCPCS: 58571; S2900; 36415; 85025; 88307; 99199; A9270; J0690; J1100; J1170; J1200; J1650; J1885; J2250; J2405; J2704; J3010; J7120; J7121

== ENCOUNTER 2023-03-09 19:04 | Day surgery (SDC) | payer OTHER, SELFPAY ==
[2023-03-09 19:26] VITALS: BP 136/87; PULSE 90; RESP 17; TEMP 37; O2SAT 97
[2023-03-09 19:31] VITALS: BP 136/87; PULSE 92; TEMP 37; O2SAT 95
--- NOTE | 2023-03-09 20:21 | ED.FEMALEGU ---
HPI - Female Genitourinary General Chief complaint: Vaginal Bleeding Stated complaint: vaginal bleeding Time Seen by Provider: 03/09/23 19:28 History of Present Illness HPI Narrative: Patient has a hysterectomy completed 3 weeks ago. She has continued to lift heavy objects despite being advised against it. She states she has a bad patient . She states she was already told not to lift heavy things by her OB physician but she continues to do so. She lifted a bag of 40 pound dog food today and has had vaginal bleeding since. States she has gone through 3 pads in the past 2 hours. She passed a very large clot. She had vaginal bleeding 2 days ago after lifting a heavy bag as well Related Data Home Medications Medication Instructions Recorded Confirmed acidophilus 100 million 1 cap PO DAILY 02/09/23 02/12/23 cell-pectin, citrus 10 mg capsule escitalopram oxalate 10 mg tablet 10 mg PO DAILY 02/09/23 02/12/23 fexofenadine 30 mg tablet 180 mg PO DAILY 02/09/23 02/12/23 multivitamin 1 tablet PO DAILY 02/09/23 02/12/23 Allergies Allergy/AdvReac Type Severity Reaction Status Date / Time No Known Allergies Allergy Verified 03/09/23 19:33 Review of Systems Review of Systems: CONSTITUTIONAL: Denies fever, chills, or sweats. EYES: Denies visual changes, redness, or discharge. ENT: Denies rhinorrhea, congestion, sore throat, or otalgia. CARDIOVASCULAR: Denies chest pain, palpitations, or edema. RESPIRATORY: Denies cough or dyspnea. GASTROINTESTINAL: Denies abdominal pain, nausea, vomiting, or diarrhea. GENITOURINARY: Denies dysuria or hematuria. SKIN: Denies rash or itching. MUSCULOSKELETAL: Denies back pain, joint pain, or myalgia. NEUROLOGIC: Denies headache, numbness, or weakness. PSYCHIATRIC: Denies anxiety or depression. [facility] Past Medical History Medical History History of anxiety Hypercholesterolemia Kidney stones, calcium oxalate Overweight (BMI 25.0-29.9) Surgical History Surgical History History of History of mandibular surgery History of shoulder surgery Hx laparoscopic cholecystectomy S/P appendectomy Family History Family History Mother Hypertension Family history of kidney stones Father Cerebrovascular accident Family history of type 2 diabetes mellitus Grandparent Cerebrovascular accident Family history of malignant neoplasm of breast Other Family history of allergic disorder Family history of malignant neoplasm Social History Social History Smoking status: Never smoker Alcohol intake: never Substance use: never Substance use type: does not use Lack of Transportation: No Lack of Food: Never True Current Housing: I Have Housing Concerned About Future Housing: No Difficulty Paying Gas/Electric Bills: No Difficulty Paying for Meds: No Currently Unemployed: No Education: Decline to Answer Difficulty w/ Childcare or Family Care: No Living arrangements: with family Additional living arrangements comments: CHILDREN Gender identity (if verbalized by the patient): Female Sexual Orientation (if Verbalized by the Patient): Straight or Heterosexual Spiritual care concerns: No Exam Narrative: GENERAL: Well-appearing, well-nourished, and in no acute distress. HEAD: Normocephalic, atraumatic. EYES: PERRLA and EOMI. ENT: Nares clear, no rhinorrhea or epistaxis. Mucous membranes moist. NECK: Supple. CHEST: Clear to auscultation. No respiratory distress. HEART: Regular rate and rhythm. ABDOMEN: Soft, nontender, nondistended. EXTREMITIES: Normal range of motion. No edema. SKIN: Warm, dry, no rash. NEURO: No focal deficits. Alert and oriented x3. PSYCH: Normal mood and affect. Course Course Emergency Cour
[2023-03-09 20:26] LABS: Basophils Absolute Auto 0.1 K/mm3 (0.0-0.1); Basophils Percent Auto 0.5 % (0.2-1.2); Eosinophils Absolute Auto 0.3 K/mm3 (0-0.3); Eosinophils Percent Auto 3.1 % (0-4.4); Hematocrit 39.5 % (37.0-47.0); Hemoglobin 12.9 g/dL (12.0-15.0); Immature Granulocyte Absolute 0.06 K/mm3 (0.00-0.031); Immature Granulocyte Percent A 0.6 % (0-0.5); Lymphocytes Absolute Auto 4.49 K/mm3 (0.9-3.2); Lymphocytes Percent Auto 42.2 % (18.3-44.2); Mean Corpuscular HGB Conc 32.7 g/dl (32-36); Mean Corpuscular Hemoglobin 27.6 pg (26-34); Mean Corpuscular Volume 84.6 fl (80-100); Mean Platelet Volume 9.6 fl (7.4-10.4); Monocytes Absolute Auto 0.6 K/mm3 (0.1-0.6); Monocytes Percent Auto 5.6 % (2.6-8.5); Neutrophils Absolute Auto 5.1 K/mm3 (1.3-6.7); Platelet Count Result 281 k/mm3 (150-375); Red Blood Count 4.67 M/mm3 (4.2-5.4); Red Cell Distribution Width 14.3 % (11.5-14.5); White Blood Count 10.6 K/mm3 (4.5-10.0)
[2023-03-09 20:37] LABS: Alanine Aminotransferase 27 U/L (6-35); Albumin Level 4.9 g/dL (3.5-5.1); Alkaline Phosphatase 70 U/L (38-126); Anion Gap 10 mmol/L (8-16); Aspartate Amino Transferase 23 U/L (14-36); Bilirubin,Total 0.5 mg/dL (0.2-1.3); Blood Urea Nitrogen 15 mg/dL (7-17); Carbon Dioxide 27 mmol/L (22-30); Chloride 103 mmol/L (98-107); Estimated CRCL calculation 86 ml/min; Estimated Glomerular Filt Rate > 60; Glucose 109 mg/dL (65-110); Potassium 3.8 mmol/L (3.4-5.0); Sodium 140 mmol/L (137-145)
[2023-03-09 22:38] VITALS: BP 132/88; PULSE 88; O2SAT 96
[2023-03-09] MEDS: ONDANSETRON INJ 4 MG/2 ML VIAL IV PUSH (22:40)
[2023-03-09] MEDS: TRANEXAMIC ACID 1,000 MG/10 ML AMPUL 1000 MG IV PUSH (22:40)
[2023-03-10] VITALS (10 sets, daily range): BP systolic 92–128; BP diastolic 44–80; PULSE 63–97; RESP 14–20; TEMP 36.4–37.5; O2SAT 97–100
--- NOTE | 2023-03-10 00:30 | PC.NURSE ---
This patient, Huong Weems, was received from ER per wheelchair to room 291. Patient/family oriented to unit policies and routines
[2023-03-10] MEDS: DEXTROSE 5%/0.45% SOD CHL 1,000 ML 125 ML IV CONT (00:46)
[2023-03-10 05:51] LABS: Hematocrit 34.5 % (37.0-47.0); Hemoglobin 11.1 g/dL (12.0-15.0); Mean Corpuscular HGB Conc 32.2 g/dl (32-36); Mean Corpuscular Hemoglobin 27.8 pg (26-34); Mean Corpuscular Volume 86.3 fl (80-100); Platelet Count Result 248 k/mm3 (150-375); Red Cell Distribution Width 14.2 % (11.5-14.5); White Blood Count 10.1 K/mm3 (4.5-10.0)
--- NOTE | 2023-03-10 07:08 | PM.IMHP ---
H&P: HPI History of Present Illness Date/Time: 03/10/23 07:08 Chief Complaint: bleeding Narrative: this is a 42-year-old female who was admitted through the ER with vaginal bleeding she had a of hysterectomy 3 weeks ago she had been doing lots of heavy lifting and was advised against that. She however went back to heavy lifting and then began to pass clots last night. She was seen through the ER and there was some oozing seen she continues to ooze somewhat although her blood count is stable at this point she is offered an exam under anesthesia and repair. She has been NPO all night and risks and benefits were reviewed in great detail PMF Past Medical History Medical History History of anxiety Hypercholesterolemia Kidney stones, calcium oxalate Overweight (BMI 25.0-29.9) Surgical History Surgical History History of History of mandibular surgery History of shoulder surgery Hx laparoscopic cholecystectomy S/P appendectomy Family History Family History Mother Hypertension Family history of kidney stones Father Cerebrovascular accident Family history of type 2 diabetes mellitus Grandparent Cerebrovascular accident Family history of malignant neoplasm of breast Other Family history of allergic disorder Family history of malignant neoplasm Social History Social History Smoking status: Never smoker Alcohol intake: never Substance use: never Substance use type: does not use Lack of Transportation: No Lack of Food: Never True Current Housing: I Have Housing Concerned About Future Housing: No Difficulty Paying Gas/Electric Bills: No Difficulty Paying for Meds: No Currently Unemployed: No Education: Decline to Answer Difficulty w/ Childcare or Family Care: No Living arrangements: with family Additional living arrangements comments: CHILDREN Gender identity (if verbalized by the patient): Female Sexual Orientation (if Verbalized by the Patient): Straight or Heterosexual Spiritual care concerns: No Meds Home Medications and Allergies Home Medications Medication Instructions Recorded Confirmed Type acidophilus 100 million 1 cap PO DAILY 02/09/23 02/12/23 History cell-pectin, citrus 10 mg capsule escitalopram oxalate 10 mg tablet 10 mg PO DAILY 02/09/23 02/12/23 History fexofenadine 30 mg tablet 180 mg PO DAILY 02/09/23 02/12/23 History multivitamin 1 tablet PO DAILY 02/09/23 02/12/23 History hydrocodone 5 mg-acetaminophen 325 1 tablet PO Q4H PRN pain #20 tabs 02/12/23 Rx mg tablet Allergies Allergy/AdvReac Type Severity Reaction Status Date / Time No Known Allergies Allergy Verified 03/09/23 19:33 Vital Signs Vital Signs - 24 hr 03/09/23 19:26 03/09/23 19:31 03/09/23 22:38 Temperature 98.6 F 98.6 F Pulse Rate 90 92 88 Respiratory Rate 17 Blood Pressure 136/87 136/87 132/88 Pulse Oximetry 97 95 96 Oxygen Delivery Room Air 03/10/23 00:35 Temperature 97.9 F Pulse Rate 88 Respiratory Rate 20 Blood Pressure 120/80 Pulse Oximetry 100 Oxygen Delivery Exam Const: General: cooperative, healthy appearing and comfortable Nutritional Appearance: overweight Orientation/consciousness: oriented to person, oriented to place and oriented to time HENMT: Head: normal to inspection Resp: Effort & Inspection: normal respiratory effort Cardio: Rate: regular rate Rhythm: regular rhythm Heart sounds: S1 normal heart sound present and S2 normal heart sound present GI: Inspection: normal to inspection : General: Yes other ( this will be undertaken under anesthesia) H&P: Results Labs Labs: Short CBC 03/09/23 03/10/23 Range/Units 20:12 05:21 WBC 10.6 H 10.1 H (4.5-10.0) K/mm3 Hg
--- NOTE | 2023-03-10 07:24 | WPDHPUPDATE1 ---
History and Physical Update Update Date/Time: 03/10/23 07:24 History and Physical has been reviewed, including an updated exam of the patient. There are NO changes in the patient's condition. Risks, benefits, and alternatives have been discussed and questions answered. Patient agrees to proceed with procedure.
--- NOTE | 2023-03-10 08:20 | PC.NURSE ---
To OR per stretcher, IV saline locked.
--- NOTE | 2023-03-10 09:11 | WPDANESEPPF ---
Anes - Initial Pre Proc Eval Procedure: Operation Date: 03/10/23 09:30 Proposed Procedures p Vaginal Exam Under Anesthesia, Repair Vaginal Laceration - Bryn Malik MD Date/Time: 03/10/23 09:11 Surgeon: Tonio Wellington MD Pre Op Diagnosis: Vaginal Bleeding Patient Data Age: 42 Gender: F Height: 1.68 m Weight: 79.38 kg Last Vital Signs Temp 98.3 F 03/10/23 08:37 Pulse 85 03/10/23 08:37 Resp 20 03/10/23 08:37 BP 119/58 L 03/10/23 08:37 Pulse Ox 98 03/10/23 08:37 O2 Del Method Room Air 03/10/23 08:37 Allergies Allergy/AdvReac Type Severity Reaction Status Date / Time No Known Allergies Allergy Verified 03/09/23 19:33 Home Medications Medication Instructions Recorded Confirmed Type acidophilus 100 million 1 cap PO DAILY 02/09/23 02/12/23 History cell-pectin, citrus 10 mg capsule escitalopram oxalate 10 mg tablet 10 mg PO DAILY 02/09/23 02/12/23 History fexofenadine 30 mg tablet 180 mg PO DAILY 02/09/23 02/12/23 History multivitamin 1 tablet PO DAILY 02/09/23 02/12/23 History hydrocodone 5 mg-acetaminophen 325 1 tablet PO Q4H PRN pain #20 tabs 02/12/23 Rx mg tablet Laboratory Tests 03/09/23 03/09/23 03/10/23 20:12 22:31 05:21 WBC 10.6 H K/mm3 10.1 H K/mm3 (4.5-10.0) (4.5-10.0) RBC 4.67 M/mm3 4.00 L M/mm3 (4.2-5.4) (4.2-5.4) Hgb 12.9 g/dL 11.1 L g/dL (12.0-15.0) (12.0-15.0) Hct 39.5 % 34.5 L % (37.0-47.0) (37.0-47.0) MCV 84.6 fl 86.3 fl (80-100) (80-100) MCH 27.6 pg 27.8 pg (26-34) (26-34) MCHC 32.7 g/dl 32.2 g/dl (32-36) (32-36) RDW 14.3 % 14.2 % (11.5-14.5) (11.5-14.5) Plt Count 281 k/mm3 248 k/mm3 (150-375) (150-375) MPV 9.6 fl 10.0 fl (7.4-10.4) (7.4-10.4) Immature Gran % (Auto) 0.6 H % (0-0.5) Neut % (Auto) 48.0 % (45.5-73.1) Lymph % (Auto) 42.2 % (18.3-44.2) Pine % (Auto) 5.6 % (2.6-8.5) Eos % (Auto) 3.1 % (0-4.4) Baso % (Auto) 0.5 % (0.2-1.2) Lymph # (Auto) 4.49 H K/mm3 (0.9-3.2) Pine # (Auto) 0.6 K/mm3 (0.1-0.6) Eos # (Auto) 0.3 K/mm3 (0-0.3) Baso # (Auto) 0.1 K/mm3 (0.0-0.1) Abs Immat Gran (auto) 0.06 H K/mm3 (0.00-0.031) Absolute Neuts (auto) 5.1 K/mm3 (1.3-6.7) Absolute Nucleated RBC 0.0 K/mm3 (0.0-0.012) Nucleated RBC % 0.0 % (0.0-0.2) Sodium 140 mmol/L (137-145) Potassium 3.8 mmol/L (3.4-5.0) Chloride 103 mmol/L (98-107) Carbon Dioxide 27 mmol/L (22-30) Anion Gap 10 mmol/L (8-16) BUN 15 D mg/dL (7-17) Creatinine 0.80 mg/dL (0.7-1.0) Estim Creat Clear Calc 86 ml/min Estimated GFR > 60 (59 - ) Glucose 109 mg/dL (65-110) Calcium 10.0 mg/dL (8.4-10.2) Total Bilirubin 0.5 mg/dL (0.2-1.3) AST 23 U/L (14-36) ALT 27 U/L (6-35) Alkaline Phosphatase 70 U/L (38-126) Total Protein 8.0 g/dL (6.3-8.2) Albumin 4.9 g/dL (3.5-5.1) Blood Type O Positive Antibody Screen Negative Patient hx anesthesia problems: none Family hx anesthesia problems: none Results Review: All pre-operative results and documents have been reviewed as part of the pre-operative evaluation. [facility] Past Medical History Medical History History of anxiety Hypercholesterolemia Kidney stones, calcium oxalate Overweight (BMI 25.0-29.9) Surgical History Surgical History History of History of mandibular surgery History of shoulder surgery Hx laparoscopic cholecystectomy S/P appendectomy Family History Family History (Reviewed 03/10/23 @ 07:11 by Dylan
[2023-03-10] MEDS: LACTATED RINGERS 1,000 ML 30 ML IV CONT ×2 (09:20→10:05)
[2023-03-10] MEDS: ceFAZolin 2 GM/D5W 50 ML 2 GM/50 ML BAG IVPB (09:28)
--- NOTE | 2023-03-10 09:49 | W.PM.PROC2 ---
Procedure Note - Detailed Date of Procedure 03/10/23 Pre-op Diagnosis Vaginal Bleeding Post-op Diagnosis Same Procedure Performed Exam under anesthesia/repair of vaginal cuff tear Surgeon Bryn Malik MD Anesthesia General Indications Is a 42-year-old female couple weeks out from vaginal hysterectomy who was doing heavy lifting and had some bleeding prior to admission. Findings Vaginal cuff was essentially mostly intact. At the center was a small area that was oozing all. Description of Procedure Patient was prepped draped in normal sterile fashion placed in the dorsal lithotomy position. Under excellent general and anesthesia weighted speculum placed in posterior fornix of vagina bladder drained of about 300cc clear urine. A Draper was used to retract the anterior portion of the vagina and the area at Central that was bleeding was stitch with 2 [id number] 0 Vicryl stitch. Blood loss was estimated at5cc it was watched for 5minutes no bleeding was seen the instruments removed all were accounted for also the patient went to recovery in satisfactory condition Estimated Blood Loss 5 Drains No Packing No Pathology None sent Complications No immediate complications Condition Stable Disposition PACU
[2023-03-10] MEDS: fentaNYL CITRATE INJ (*CRX) 100 MCG/2 ML VIAL 25 MCG IV PUSH ×4 (10:16→10:30)
--- NOTE | 2023-03-10 10:53 | PC.NURSE ---
Returned from OR per luis fernando. Report received from Renata.
[2023-03-10] MEDS: HYDROcodone/acetaminophen (*CRX) 5-325 MG TABLET 1 TAB PO (11:13)
== END 2023-03-10 13:00 | disposition home or self-care (01) ==
LOC: ANHED 22:24 → ANHOB2 03-10 00:14 → ANHSURGERY 03-11 09:54 → ANHOB2 03-11 09:54
PROVIDERS: Obstetrics & Gynecology; Emergency Provider Emergency Medicine; PCP Family Medicine; Visit Provider Obstetrics & Gynecology
DX: N89.8 Other specified noninflammatory disorders of vagina (principal); Z90.710 Acquired absence of both cervix and uterus; E78.00 Pure hypercholesterolemia, unspecified; F41.9 Anxiety disorder, unspecified
CPT/HCPCS: 58999; 36415; 80053; 85025; 85027; 86850; 86900; 86901; 96374; 96375; 99199; 99285; A9270; G0378; G0379; J0690; J1170; J2250; J2405; J2704; J3010; J7120

== ENCOUNTER 2023-09-27 13:52 | Emergency (ER) | payer OTHER, SELFPAY ==
[2023-09-27 14:07] VITALS: BP 151/80; PULSE 113; RESP 20; TEMP 38.7; O2SAT 99
--- NOTE | 2023-09-27 14:14 | ED.GENADULT ---
HPI - General Adult General Chief complaint: Upper Respiratory Infection Stated complaint: Fever/Congestion Source: patient, RN notes reviewed and old records reviewed Mode of arrival: ambulatory Limitations: no limitations History of Present Illness HPI narrative: 42-year-old female presents to [facility] with fever, general malaise, general myalgia, sinus congestion, headache, shortness of breath that started yesterday. Patient states highest temp was 102.3?. Patient taking Tylenol with no relief. Patient denies cough, dizziness, weakness, vomiting. Related Data Home Medications Medication Instructions Recorded Confirmed acidophilus 100 million 1 cap PO DAILY 02/09/23 09/27/23 cell-pectin, citrus 10 mg capsule escitalopram oxalate 10 mg tablet 10 mg PO DAILY 02/09/23 09/27/23 fexofenadine 30 mg tablet 180 mg PO DAILY 02/09/23 09/27/23 multivitamin 1 tablet PO DAILY 02/09/23 09/27/23 Allergies Allergy/AdvReac Type Severity Reaction Status Date / Time No Known Allergies Allergy Verified 09/27/23 14:19 Review of Systems Constitutional: Constitutional: Reports no additional constitutional complaints, Reports body ache(s), Denies chills, Reports fatigue, Denies fever(s) and Reports headache(s) Eyes: Eyes: Reports no additional eye complaints and Denies blurry vision ENT: Reports system reviewed and no additional complaints, except as documented, Denies vertigo, Denies dizziness, Denies ear discharge, Denies otalgia, Denies facial pain, Reports headache(s), Reports nasal congestion, Reports nasal discharge, Denies sinus pain, Reports sinus pressure and Denies sore throat Cardiovascular: Cardiovascular: Reports no additional cardiovascular complaints, Denies chest pain, Denies chest pain at rest, Denies rapid heart rate and Reports dyspnea Respiratory: Respiratory: Reports no additional respiratory complaints, Denies chest congestion, Denies cough, Denies pain on inspiration, Denies pain with cough and Reports dyspnea Gastrointestinal: Gastrointestinal: Denies abdominal pain, Denies diarrhea, Denies nausea and Denies vomiting Integumentary/Breasts: Skin/Breast: Denies rash Neurologic: Reports system reviewed and no additional complaints, except as documented, Denies vertigo, Denies dizziness and Denies headache(s) Endocrine: Endocrine: Denies fatigue PMFSH Past Medical History Medical History History of anxiety Hypercholesterolemia Kidney stones, calcium oxalate Overweight (BMI 25.0-29.9) Surgical History Surgical History History of History of mandibular surgery History of shoulder surgery Hx laparoscopic cholecystectomy S/P appendectomy Family History Family History Mother Hypertension Family history of kidney stones Father Cerebrovascular accident Family history of type 2 diabetes mellitus Grandparent Cerebrovascular accident Family history of malignant neoplasm of breast Other Family history of allergic disorder Family history of malignant neoplasm Social History Social History Smoking status: Never smoker Alcohol intake: never Substance use: never Substance use type: does not use Lack of Transportation: No Lack of Food: Never True Current Housing: I Have Housing Concerned About Future Housing: No Difficulty Paying Gas/Electric Bills: No Difficulty Paying for Meds: No Currently Unemployed: No Education: Decline to Answer Difficulty w/ Childcare or Family Care: No Living arrangements: with family Additional living arrangements comments: CHILDREN Gender identity (if verbalized by the patient): Female Sexual Orientation (if Verbalized by the Patient): Straight or Heterosexual Spiritual care concerns: No Comments A
== END 2023-09-27 14:42 | disposition home or self-care (01) ==
PROVIDERS: Emergency Provider Registered Nurse; PCP Family Medicine
DX: J10.1 Influenza due to other identified influenza virus with other respiratory manifestations (principal); Z20.822 Contact with and (suspected) exposure to COVID-19; E78.00 Pure hypercholesterolemia, unspecified; F41.9 Anxiety disorder, unspecified
CPT/HCPCS: 87081; 87426; 87804; 87880; 99213; G0463

== ENCOUNTER 2024-10-27 15:43 | Emergency (ER) | payer OTHER, SELFPAY ==
--- NOTE | ~2024-10-27 | XR_ITS ---
HISTORY: HYPER SUPINATION, ANT/POS PAIN COMPARISON: None TECHNIQUE: 3 views of the right wrist were performed. FINDINGS: No acute fracture is identified. The carpal arcs are intact. Bone mineralization is age-appropriate. No significant soft tissue swelling is noted. No radiopaque foreign body is identified. IMPRESSION: No acute fracture or dislocation. Reviewed, dictated and finalized at location A.
--- OUTSIDE RECORDS SUMMARY | 2024-10-27 15:45 | XMS_ITS | Clinical Summary ---
Author Organization [facility] Care Team Providers Care Attache Name Role Phone Naeem Escobar MD Primary Care Provider [phone] Allergies No known active allergies Medications 2/iron/folic acid/om3 (COMPLETE YOUSIF DHA ORAL) Take 1 tablet by mouth daily. Active doxylamine-pyrid oxine, vit B6, (DICLEGIS) 10-10 mg tabletIndication s:25 mg daily Take 1 tablet by mouth nightly as needed for nausea. Active docosahexanoic acid (DHA) 200 mg capsule Take 300 mg by mouth 2 (two) times a day. Active doxylamine-pyrid oxine, vit B6, 20-20 mg tablet,IR & delay rel,biphasic Take by mouth as needed. Active cholecalciferol (VITAMIN D-3) 2000 unit capsule Take 2 capsules (4,000 Units total) by mouth Active Lactobacillus acidophilus (PROBIOTIC ORAL) Take by mouth Active cyanocobalamin, vitamin B-12, (B-12 DOTS ORAL) Take by mouth Active ZINC ORAL Take by mouth Active ascorbic acid (VITAMIN C ORAL) Take by mouth Active albuterol (ProAir RespiClick) 90 mcg/actuation inhaler Inhale 2 puffs every 6 (six) hours as needed for wheezing 1 each 2 2 Active Additional Information Patient not taking.Reported on 01/06/2022 benzonatate (TESSALON) 100 mg capsuleIndicatio ns:Cough Take 1 capsule (100 mg total) by mouth 3 (three) times a day as needed for cough 20 capsule 2 Active Additional Information Patient not taking.Reported on 01/06/2022 cetirizine 10 mg capsule Take by mouth Active sertraline (ZOLOFT) 100 mg tablet Take 1 tablet (100 mg total) by mouth daily 90 tablet 3 3 Active Additional Information Patient not taking.Reported on 09/26/2022 escitalopram (LEXAPRO) 10 mg tablet Take 1 tablet (10 mg total) by mouth daily 3 Active Active Problems Problem Noted Date Diagnosed Date Major depressive disorder, recurrent, mild 05/27 Major depressive disorder, recurrent, moderate 1 07/28/2020 Major depressive disorder, recurrent, unspecifie d 05/27/2021 Elderly multigravida in second trimester 019 Renal stones 06/28/2018 Depression during in second trimester 06/28/2018 Lesion of nipple 06/28/2018 Diarrhea 05/27/2018 Assessment & Plan (05/27/2018 2:04 PM PLATING ENGINEER): The patient presents for her first evaluation of several years of non bloody non nocturnal diarrhea without fever. The differential diagnosis includes thyroid disease,, celiac disease, inflammatory bowel disease, microscopic colitis, adverse effect of medication, food allergy and food intolerance, Giardia. Less likely causes in this patient include: adverse effect of medication, viral infection and C. Diff The evaluation will include:TSH, celiac serologies, CBC, CMP, CRP and lactose- free diet, fecal calprotectin, fecal elastase and O and P, Scopes and xrays cannot be done due to unless absolutely needed LLQ pain 05/27/2018 Assessment & Plan (05/27/2018 2:06 PM PLATING ENGINEER): The patient had a soft abdomen abut severe tenderness in her RLQ oan LLQ. I did not feel any masses and she has had a CCK and Appy. Unclear of this etiology. I will send her to the ER> I told the patient she needs laborer high density press and gave her the name of the branch banker and the number and she will call. If labs and stool tests are normal, she will need to be [facility] at [facility] for her diarrhea where she can receive tertiary care. 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 12/16/2016 Visit for screening 12/07/2016 Surgical History Surgery Date Site/Laterality Comments APPENDECTOMY 03/07/1999 - 04/06/1999 CHOLECYSTECTOMY 01/06/2016 - 02/05/2016 ORAL SURGERY 11/05/2000 - 12/04/2000 Jaw surgery to repair underbite SHOULDER SURGERY 11/05/2013 - 12/04/2013 SECTION 01/06/2017 SECTION 12/20/2018 TUBAL LIGATION ABLATION Medical History Medical History Date Comments Depression Miscarriage 2018 Kidney stone Diarrhea Family History Medical History Relation Name Comments No Known Problems Brother 1 Ausin No Known Problems Brother 2 Jeremy Depression Father Jaziel Hypertension Father Jaziel Stroke Father Jaziel Colon cancer Maternal Grandfather Hypertension Mother Esther Kidney disease Mother Esther Gallbladder disease Sister 1 Mitra No Known Problems Sister 2 Kris Relation Name Status Comments Brother 1 Ausin Alive Brother 2 Jeremy Alive Father Jaziel (Age 53) Maternal Grandfather (Age 66) [place] Cancer Mother Esther Alive Sister 1 Mitra Alive Sister 2 Kris Alive Social History Tobacco Use Types Packs/Day Years Used Date Smoking Tobacco: Never Smokeless Tobacco: Never Alcohol Use Standard Drinks/Week Comments No 0 (1 standard drink = 0.6 oz pur e alcohol) PHQ-2 Answer Date Recorded PHQ-2 Score 6 01/28/2019 Personal Safety Answer Date Recorded Getting School Help Needed Not on file 06/09 Comments No Sex and Gender Information Value Date Recorded Sex Assigned at Not on file Legal Sex Female 1:37 PM CDT Gender Identity Female 06/11/2021 1:02 PM PLATING ENGINEER Sexual Orientation Straight 06/11/2021 1: 02 PM PLATING ENGINEER Obstetrics History Para Term AB IAB SAB Ectopic Multiple Livin g Live Births 2 1 1 Date Outcome GA Total Labor Labor/2nd/3rd Weight Sex Type Anes PTL Betzaida A1 A5 Name Clin Para Last Filed Vital Signs Vital Sign Reading Time Taken Comments Blood Pressure 130/82 09/26/2022 3:53 PM CDT Pulse 76 09/26/2022 3:53 PM CDT Temperature 36.3 C (97.4 F) 09/26/2022 3:53 PM CDT Respiratory Rate 16 09/26/2022 3:53 PM CDT Oxygen Saturation 98% 09/26/2022 3:53 PM CDT Inhaled Oxygen Concentration - - Weight 77.1 kg (170 lb) 09/26/2022 3:53 PM CDT Height 167.6 cm (5' 6 ) 09/26/2022 3:53 PM CDT Body Mass Index 27.44 09/26/2022 3:53 PM CDT Plan of Treatment Health Maintenance Due Date Last Done Comments Breast Cancer Screening-Mammogram 1981 Cervical Cancer Screening 1981 Hepatitis C Screening 1981 DTaP/Tdap/Td Vaccine (1 - Tdap) 1992 Varicella Vaccines (1 of 2 - 13+ 2-dose series) 1994 Hepatitis B Screening 11/15/1999 Regular Well Visit/Exam 18-64 11/15/1999 Depression Screening 08/27/2019 08/26/2018, 08/26/2018, 06/28/2018, Additional history exists HPV Vaccines Aged Out No longer eligi ble based on patient's age to complete this topic Influenza Vaccine Discontinued Pneumococcal vaccine <65 Aged Out No longer eligible based on patient's age to complete this topic Insurance [facility] CHOICE PLUS [facility] HMO/PPO Address: [id number] [place] [address] [facility] Member Subscriber Plan / Payer (Ef fective 2016-Present) Name:Sarah Weems Relation to Subscriber:Spouse Name:SELIN WEEMS Date of :1980 (Home) Address: [address] [place] [id number] Payer ID:[id number] Type:Not on file Address: [address] [facility] Care Teams Attache Relationship Specialty Start Date End Date Naeem Escobar MD [address] [place] [id number] PCP - General Family Medicine 08/25/18
--- OUTSIDE RECORDS SUMMARY | 2024-10-27 15:45 | XMS_ITS | Clinical Summary ---
Author Organization [facility] Address [address] [place] [address] Phone Care Team Providers Care Rectifying Attendant Name Role Phone KwesiShaylee gill Primary Care Provider Allergies No known active allergies Medications VIT #91/FE FUM/FA/DHA ( + DHA ORAL) Take by mouth. Active sertraline (ZOLOFT) 100 mg tablet Take 100 mg by mouth daily. Active MAGNESIUM ORAL Take by mouth. Active docosahexanoic acid, DHA, 200 mg Capsule Take 100 mg by mouth. Active Cholecalciferol , Vitamin D3, 2,000 unit Capsule Take 4,000 Units by mouth. Active cyanocobalamin 1,000 mcg Tablet Take 1,000 mcg by mouth daily. Active calcium as carbonate (TUMS ES) 750 mg (300 mg elemental) Tablet, Chewable Take 600 mg by mouth 2 times daily. Active oxyCODONE (ROXICODONE) 5 mg tabletIndicatio ns:S/P Take 1 Tablet by mouth every 4 hours as needed for severe Pain. Max Daily Amount: 6 tablets 15 Tablet 12/24/2018 9:36 AM CDT 12/23/2018 Active Active Problems Problem Noted Date Diagnosed Date S/P 12/20/2018 Vaginal bleeding in , third trimester 0 09/23/2018 Gas pain 08/26/2018 Normal labor 01/06/2017 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 12/16/2016 Family History Medical History Relation Name Comments Healthy Brother 1 Healthy Brother 2 Depression Father Diabetes Father Stroke Father Colon Cancer Maternal Grandfather Breast Cancer Maternal Grandmother Hypertension Mother Other Mother kidney stones Stroke Paternal Grandfather Healthy Sister 1 Healthy Sister 2 Healthy Son Relation Name Status Comments Brother 1 Alive Brother 2 Alive Father Maternal Grandfather Maternal Grandmother Mother Alive Paternal Grandfather Paternal Grandmother Alive Sister 1 Alive Sister 2 Alive Son Alive Social History Tobacco Use Types Packs/Day Years Used Date Smoking Tobacco: Never Smokeless Tobacco: Never Alcohol Use Standard Drinks/Week Comments No 0 (1 standard drink = 0.6 oz pur e alcohol) Social Connections Answer Date Recorded In a typical week, how many times do you talk on the phone with family, friends, or neighbors? More than three times a week 09/23/2018 How often do you get togethe r with friends or relatives? More than three times a week 09/23/2018 How often do you attend chur ch or uatsdin services? More than 4 times per year 09/23/2018 Do you belong to any clubs o r organizations such as oriental orthodox groups, unions, fraternal or athletic groups, or school groups? No 09/23/2018 How often do you attend meet ings of the clubs or organizations you belong to? Never 09/23/2018 Are you , , di vorced, , never , or living with a partner? 09/23/2018 Financial Resource Strain Answer Date R ecorded How hard is it for you to pa y for the very basics like food, housing, medical care, and heating? Not very hard 09/23/2018 Food Insecurity Answer Date Recorded Within the past 12 months, y ou worried that your food would run out before you got the money to buy more. Never true 09/24/19 19 Within the past 12 months, t he food you bought just didn't last and you didn't have money to get more. Never true 09/23/2018 Transportation Needs Answer Date Record ed In the past 12 months, has l ack of transportation kept you from medical appointments or from getting medications? No 09/05 In the past 12 months, has l ack of transportation kept you from meetings, work, or from getting things needed for daily living? 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 Gender Identity Not on file Sexual Orientation Not on file Last Filed Vital Signs Vital Sign Reading Time Taken Comments Blood Pressure 132/64 12/24/2018 10:30 AM CDT Pulse 67 12/23/2018 11:20 PM CDT Temperature 36.7 C (98.1 F) 12/24/2018 10:30 AM CDT Respiratory Rate 20 12/24/2018 10:30 AM CDT Oxygen Saturation 98% 12/23/2018 7:16 AM CDT Inhaled Oxygen Concentration - - Weight 84.8 kg (187 lb) 12/20/2018 7:54 AM CDT Height 167.6 cm (5' 6 ) 12/20/2018 7:54 AM CDT Body Mass Index 30.18 12/20/2018 7:54 AM CDT Plan of Treatment Health Maintenance Due Date Last Done Comments DTAP/TDAP/TD VACCINES (1 - Tdap) 2000 HEPATITIS B VACCINES (1 of 3 - 19+ 3-dose series) 2000 HPV/Cotest (21-29) 2002 CERVICAL CANCER SCREENING 11/15/2011 HPV/Cotest (30-65) 11/15/2011 PAP SMEAR 11/15/2011 BREAST CANCER SCREENING 2021 INFLUENZA VACCINE (#1) 2024 HPV VACCINES Aged Out No longer eligi ble based on patient's age to complete this topic Medical Devices Implanted Type Area Law Secretary Device Identifier Shelf Expiration Date Model / Serial / Lot Barrier Seprafilm 5x6in [id number] - [id number] Implanted:Qty : 1 on 01/08/2017 by Shaylee Chavira DO at [facility] Adhesion Barrier N/A: Uterus [employer] [id number] 03/06/2019 [id number] / [id number] 120 / [id number] Hemostatic Surgicel 4x8in 1950 - [id number] Implanted:Qty : 1 on 12/20/2018 by Shaylee Chavira DO at [facility] Hemostatic N/A: Abdomen [employer] 03/06/[id number] / / [id number] Insurance [facility] [id number] RX EXPRESS SCRIPTS Express RX EXPRESS SCRIPTS Express RX OPTUM RX Member Subscriber Plan / Payer (Ef fective 2018-Present) Name:Huong Weems Relation to Subscriber:Not on file Name:Huong Weems Subscriber ID:Not on file Date of :1980 Payer ID:Not on file Group ID:[facility] Type:RX Commercial Address: [address] Advance Directives For more information, please contact: [phone] * Full Code (Latest Code Status on File) Date Activated Date Inactivated Comments 12/20/2018 1:09 PM 12/24/2018 1:45 PM * Full Code Date Activated Date Inactivated Comments 08/26/2018 6:54 PM 08/26/2018 11:20 PM * Full Code Date Activated Date Inactivated Comments 01/08/2017 5:32 AM 01/12/2017 1:44 PM * Full Code Date Activated Date Inactivated Comments 01/06/2017 6:26 PM 01/08/2017 5:32 AM * Full Code Date Activated Date Inactivated Comments 12/16/2016 5:02 PM 12/16/2016 8:49 PM Care Teams Rectifying Attendant Relationship Specialty Start Date End Date Shaylee Chavira DO PCP - General Obstetrics and Gynecology 08/09/16
--- OUTSIDE RECORDS SUMMARY | 2024-10-27 15:45 | XMS_ITS | Continuity of Care Document ---
Author Organization [facility] Address [address] [place] [address] Phone Care Team Providers Care Flight Attendant Inflight Services Name Role Phone Zackery Galdamez MD Unavailable [...] Diagnoses Date Provider Providers Copied on Encounter [facility], [address], [place], [id number], tel:[phone] [facility] No Information Rudolph Vizcarra. [address], [place], [place], [id number], [place]. tel:[phone] OFFICE/OUTPAT IENT VISIT, [facility], [address], [place], [place], [id number], [place] tel:[phone] [facility] No Information Chang Barr. [address], [place], [id number], [place]. tel:[phone] Referring Provider: Cortney Dillon, [address], [place], [address] . tel:[phone] OFFICE/OUTPAT IENT VISIT, [facility], [address], [place], [place], [id number], [place] tel:[phone] [facility] No Information Phani Love. [address], [place], [id number], [place]. tel:[phone] Referring Provider: Ivan Campos, [address], [place], [address] . tel:[phone] OFFICE/OUTPAT IENT VISIT, [facility], [address], [place], [place], [id number], [place] tel:[phone] [facility] No Information Rudolph Vizcarra. [address], [place], [place], [id number], [place]. tel:[phone] Referring Provider: Zackery Dillon, [address], [place], [address] . tel:[phone] OFFICE/OUTPAT IENT VISIT, [facility], [address], [place], [place], [id number], [place] tel:[phone] [facility] No Information Rudolph Vizcarra. [address], [place], [place], [id number], [place]. tel:[phone] Referring Provider: Zackery Dillon, [address], [place], [address] . tel:[phone] OFFICE/OUTPAT IENT VISIT, [facility], [address], [place], [place], [id number], [place] tel:[phone] [facility] No Information Rudolph Vizcarra. [address], [place], [place], [id number], [place]. tel:[phone] Referring Provider: Zackery Dillon, [address], [place], [address] . tel:[phone] OFFICE/OUTPAT IENT VISIT, [facility], [address], [place], [place], [id number], [place] tel:[phone] [facility] No Information No Information OFFICE/OUTPAT IENT VISIT, [facility], [address], [place], [place], [id number], [place] tel:[phone] [facility] No Information Rudolph Vizcarra. [address], [place], [id number], [place]. tel:[phone] Referring Provider: Zackery Dillon, [address], [place], [address] . tel:[phone] [facility], [address], [place], [place], [id number], [place] tel:[phone] [facility] No Information Rudolph Vizcarra. [address], [place], [place], [address], [place]. tel:[phone] [facility], [address], [place], [place], [address], [place] tel:[phone] [facility] No Information Rudolph Vizcarra. [address], [place], [place], [address], [place]. tel:[phone] OFFICE/OUTPAT IENT VISIT, [facility], [address], [place], [place], [address], [place] tel:[phone] [facility] No Information Rudolph Vizcarra. [address], [place], [place], [address], [place]. tel:[phone] Referring Provider: Zackery Dillon, [address], [place], [address] . tel:[phone] OFFICE/OUTPAT IENT VISIT, [facility], [address], [place], [place], [address], [place] tel:[phone] [facility] No Information No Information Family History Family [...] Unspecified Payers Payer name Insurance type Covered democrat ID Authoriza tion(s) SELF PAY PATIENT 09 [...]
--- OUTSIDE RECORDS SUMMARY | 2024-10-27 15:45 | XMS_ITS | Continuity of Care Document ---
Author Organization [facility] Address [address] [place] [address] Phone Care Team Providers Care School Crossing Guard Supervisor Name Role Phone Dane Hodge MD Unavailable [...] Providers Copied on Encounter [facility] , [address], [place], [address], tel:[phone] [facility] No Information [address] Nave[address] Vela. [address], [place], [place], [address] . tel: [phone] OFFICE/OUTPAT IENT VISIT EST [facility] , [address] [email or web address], [place], [address], [place] tel:[phone] [facility] Body mass index (BMI) 29.0-29.9, adultBiceps tendinitis of left upper extremity Sep- 9 Naveen Vela. [address], [place], [place], [address] . tel: [phone] Referring Provider: Naeem Escobar, [address], [place], [address]. tel:[phone] [facility] , [address] [address], [place], [address], [place] tel:[phone] [facility] Pain in left shoulder Sep-0 9 [facility]. [address], [place], [place], [address] . tel: [phone] Referring Provider: Dane Hodge, [address], [place], [address]. tel:[phone] [facility] , [address] [address], [place], [address], [place] tel:[phone] [facility] Left shoulder pain, unspecified chronicity 9 Naveen Vela. [address], [place], [place], [address] . tel: [phone] OFFICE/OUTPAT IENT VISIT EST [facility] , [address], [place], [address], [place] tel:[phone] [facility] Left shoulder pain, unspecified chronicity 8 Naveen Vela. [address], [place], [place], [address] . tel: [phone] OFFICE/OUTPAT IENT VISIT EST [facility] , [address] [facility] [address], [place], [address], [place] tel:[phone] [facility] Left shoulder pain, unspecified chronicity 8 Naveen eVla. [address] [facility] [address], [place], [place], [address] . tel: [phone] OFFICE/OUTPAT IENT VISIT EST [facility] , [address] [address], [place], [address], [place] [phone] [facility] De Quervain's disease (tenosynoviti s)Pain in right wrist 8 Yola Pierre. [address] [facility] [place], [place], [address] . tel: [phone] OFFICE/OUTPAT IENT VISIT EST [facility] , [address] [address], [place], [address], [place] [phone] [facility] Quervain's disease (tenosynoviti s) 8 [address] Pierre. [address] [facility], [place], [place], [address] . tel: [phone] OFFICE/OUTPAT IENT VISIT EST [facility] , [address] [address], [place], [address], [place] tel:[phone] [facility] Quervain's disease (tenosynoviti s) 8 Yola Pierre. [address] [facility], [place], [place], [address] . tel: [phone] OFFICE/OUTPAT IENT VISIT NEW [facility] , [address] [address], [place], [address], [place] [phone] [facility] Quervain's disease (tenosynoviti s) 8 Yola Pierre. [address] [facility], [place], [place], [address] . tel: [phone] Family History Family Member Type Diagnosis Age At Onset Mother Problem (finding) Alive and well Father Problem (finding) Diabetes Mother Problem (finding) hypertension Father Problem (finding) stroke Payers Payer name Insurance type Covered republican ID Authoriza tion(s) No Information Social History [...]
--- OUTSIDE RECORDS SUMMARY | 2024-10-27 15:45 | XMS_ITS | Referral Summary ---
Author Organization [facility] Care Team Providers Care Licensed Pesticide Applicator Name Role Phone Naeem Escobar MD Primary Care Provider [phone] Allergies No known active allergies Medications 2/iron/folic [...] 05/27/2018 Assessment & Plan (05/27/2018 2:04 PM HOUSEKEEPING ATTENDANT): The patient presents for her first evaluation [...] 05/27/2018 Assessment & Plan (05/27/2018 2:06 PM HOUSEKEEPING ATTENDANT): The patient had a soft abdomen abut severe tenderness in her RLQ oan LLQ. I did not feel any masses and she has had a CCK and Appy. Unclear of this etiology. I will send her to the ER> I told the patient she needs high climber and gave her the name of the customer leader and the number and she will call. If labs and stool tests are normal, she will need to be seen at [facility] for her diarrhea where she can receive tertiary care. -induced hypertension in allan coats r 12/16/2016 Visit for screening 12/07/2016 Social History Tobacco Use Types Packs/Day Years [...] CDT Gender Identity Female 06/11/2021 1:02 PM HOUSEKEEPING ATTENDANT Sexual Orientation Straight 06/11/2021 1: 02 PM HOUSEKEEPING ATTENDANT Last Filed Vital Signs Vital Sign Reading [...] 09/26/2022 3:53 PM CDT Plan of Treatment Not on file Insurance [facility] CHOICE PLUS [facility] HMO/PPO Address: [address] [address] [place] [address] [facility] Member Subscriber Plan / Payer (Ef fective 2016-Present) Name:Izzy Weems Relation to Subscriber:Spouse Name:SELIN WEEMS Date of :1980 (Home) Address: [address] [address] Payer ID:[id number] Type:Not on file Address: [address] [facility] HMO/PPO Address: [address] [place] [address] [facility] Care Teams Licensed Pesticide Applicator Relationship Specialty Start Date End Date Naeem Escobar [place] [address] PCP - General Family Medicine 08/25/18
--- OUTSIDE RECORDS SUMMARY | 2024-10-27 15:49 | XMS_ITS | Continuity of Care Document ---
Author Organization [facility] Address [address] [place] [address] Phone Care Team Providers Care Media Analytics Manager Name Role Phone Zackery Galdamez MD Unavailable [...] Provider Providers Copied on Encounter [facility], [address], [place], [id number], tel:[phone] [facility] No Information Rudolph Vizcarra. [address], [place], [place], [id number], [place]. tel:[phone] OFFICE/OUTPAT IENT VISIT, [facility], [address], [place], [place], [address], [place] tel:[phone] [facility] No Information Chang Barr. [address], [place], [place], [address], [place]. tel:[phone] Referring Provider: Cortney Dillon, [address], [place], [address] . tel:[phone] OFFICE/OUTPAT IENT VISIT, [facility], [address], [place], [place], [address], [place] tel:[phone] [facility] No Information Phani Love. [address], [place], [place], [address], [place]. tel:[phone] Referring Provider: Ivan Campos, [address], [place], [address] . tel:[phone] OFFICE/OUTPAT IENT VISIT, [facility], [address], [place], [place], [address], [place] tel:[phone] [facility] No Information Rudolph Vizcarra. [address], [place], [place], [address], [place]. tel:[phone] Referring Provider: Zackery Dillon, [address], [place], [address] . tel:[phone] OFFICE/OUTPAT IENT VISIT, [facility], [address], [place], [place], [address], [place] tel:[phone] [facility] No Information Rudolph Vizcarra. [address], [place], [place], [address], [place]. tel:[phone] Referring Provider: Zackery Dillon, [address], [place], [address] . tel:[phone] OFFICE/OUTPAT IENT VISIT, [facility], [address], [place], [place], [address], [place] tel:[phone] [facility] No Information Rudolph Vizcarra. [address], [place], [place], [address], [place]. tel:[phone] Referring Provider: Zackery Dillon, [address], [place], [address] . tel:[phone] OFFICE/OUTPAT IENT VISIT, [facility], [address], [place], [place], [address], [place] tel:[phone] [facility] No Information No Information OFFICE/OUTPAT IENT VISIT, [facility], [address], [place], [place], [address], [place] tel:[phone] [facility] No Information Rudolph Vizcarra. [address], [place], [place], [address], [place]. tel:[phone] Referring Provider: Zackery Dillon, [address], [place], [address] . tel:[phone] [facility], [address], [place], [place], [address], [place] tel:[phone] [facility] No Information Rudolph Vizcarra. [address], [place], [place], [address], [place]. tel:[phone] [facility], [address], [place], [place], [address], [place] tel:[phone] [facility] No Information Rudolph Vizcarra. [address], [place], [place], [address], [place]. tel:[phone] OFFICE/OUTPAT IENT VISIT, [facility], [address], [place], [place], [address], [place] tel:[phone] [facility] No Information Rudolph Vizcarra. [address], [place], [place], [address], [place]. tel:[phone] Referring Provider: Zackery Dillon, [address], [place], [address] . tel:[phone] OFFICE/OUTPAT IENT VISIT, [facility], [address], [place], [place], [address], [place] tel:[phone] [facility] No Information No Information Family History [...] Unspecified Payers Payer name Insurance type Covered green party ID Authoriza tion(s) SELF PAY PATIENT 09 [...]
--- OUTSIDE RECORDS SUMMARY | 2024-10-27 15:49 | XMS_ITS | Continuity of Care Document ---
Author Organization [facility] Address [address] [place] [address] Phone Care Team Providers Care Airframe And Power Plant Mechanic Name Role Phone Dane Hodge MD Unavailable [...] Providers Copied on Encounter [facility] , [address], [place], [address], tel:[phone] [facility] No Information 9 Naveen Vela. [address], [place], [place], [id number] . tel: [phone] OFFICE/OUTPAT IENT VISIT EST [facility] , [address] [facility] [address], [place], [address], [place] tel:[phone] [facility] Body mass index (BMI) 29.0-29.9, adultBiceps tendinitis of left upper extremity Sep- 9 Naveen Vela. [address], [place], [place], [address] . tel: [phone] Referring Provider: Naeem Escobar, [address], [place], [address]. tel:[phone] [facility] , [address] [address], [place], [address], [place] tel:[phone] [facility] Pain in left shoulder Sep-0 9 [facility]. [address], [place], [place], [id number] . tel: [phone] Referring Provider: Dane Hodge, [address], [place], [address]. tel:[phone] [facility] , [address] [address], [place], [address], [place] tel:[phone] [facility] Left shoulder pain, unspecified chronicity 9 Naveen Vela. [address], [place], [place], [address] . tel: [phone] OFFICE/OUTPAT IENT VISIT EST [facility] , [address], [place], [address], [place] tel:[phone] [facility] Left shoulder pain, unspecified chronicity 8 Naveen Vela. [address], [place], [place], [address] . tel: [phone] OFFICE/OUTPAT IENT VISIT EST [facility] , [address] [facility] [address], [place], [address], [place] tel:[phone] [facility] Left shoulder pain, unspecified chronicity 8 Naveen Vela. [address] [facility] [address], [place], [place], [address] . tel: [phone] OFFICE/OUTPAT IENT VISIT EST [facility] , [address] [facility] [address] [address], [place], [address], [place] [phone] [facility] De Quervain's disease (tenosynoviti s)Pain in right wrist 8 Yola Pierre. [address] [facility] [place], [place], [address] . tel: [phone] OFFICE/OUTPAT IENT VISIT EST [facility] , [address] [address], [place], [address], [place] [phone] [facility] Quervain's disease (tenosynoviti s) 8 Yola Pierre. [address] [facility], [place], [place], [address] . tel: [phone] OFFICE/OUTPAT IENT VISIT EST [facility] , [address] [address], [place], [address], [place] tel:[phone] [facility] Quervain's disease (tenosynoviti s) 8 Yola Pierre. [address] [facility], [place], [place], [address] . tel: [phone] OFFICE/OUTPAT IENT VISIT NEW [facility] , [address] [address], [place], [address], [place] [phone] [facility] Quervain's disease (tenosynoviti s) 8 Yola Pierre. [address] [facility], [place], [place], [address] . tel: [phone] Family History Family Member Type Diagnosis Age [...]
[2024-10-27 15:59] VITALS: BP 140/104; PULSE 96; RESP 18; TEMP 36.6; O2SAT 99
--- NOTE | 2024-10-27 16:19 | ED_ITS ---
HPI - Extremity Injury (Upper) General Chief Complaint: Extremity Injury, Upper Stated Complaint: Right Wrist Injury Source: patient Mode of arrival: ambulatory Limitations: no limitations History of Present Illness HPI narrative: 43 y/o female presented for c/o right wrist pain. Onset yesterday after injury. States she was using a drill when it jolted and twisted her wrist twice. Endorses normal range of motion but decreased media center specialist strength due to the pain. denies swelling or deformity, numbness or tingling. Has not taken anything for pain. Related Data Home Medications ?Medication ?Instructions ?Recorded ?Confirmed ?Last Taken ?Type No Home Medications 10/27/24 10/27/24 Unknown History Allergies Allergy/AdvReac Type Severity Reaction Status Date / Time No Known Allergies Allergy Verified 10/27/24 15:57 Review of Systems Review of Systems: CONSTITUTIONAL: Denies body aches, fever, chills EYES: Denies visual changes ENT: Denies rhinorrhea, congestion CARDIOVASCULAR: Denies chest pain, palpitations, or edema. RESPIRATORY: Denies cough or dyspnea. SKIN: Denies rash, itching, or wounds. MUSCULOSKELETAL: reports wrist pain . NEUROLOGIC: Denies numbness, tingling, or weakness. All systems reviewed & are unremarkable except as noted in HPI and below PMFSH Past Medical History Medical History History of anxiety Hypercholesterolemia Kidney stones, calcium oxalate Overweight (BMI 25.0-29.9) Surgical History Surgical History History of History of mandibular surgery History of shoulder surgery Hx laparoscopic cholecystectomy S/P appendectomy Family History Family History Mother Hypertension Family history of kidney stones Father Cerebrovascular accident Family history of type 2 diabetes mellitus Grandparent Cerebrovascular accident Family history of malignant neoplasm of breast Other Family history of allergic disorder Family history of malignant neoplasm Social History Social History Smoking status: Never smoker Alcohol intake: never Substance use: never Substance use type: does not use Lack of Transportation: No Lack of Food: Never True Current Housing: I Have Housing Concerned About Future Housing: No Difficulty Paying Gas/Electric Bills: No Difficulty Paying for Meds: No Currently Unemployed: No Education: Decline to Answer Difficulty w/ Childcare or Family Care: No Living arrangements: with family Additional living arrangements comments: CHILDREN Gender identity (if verbalized by the patient): Female Sexual Orientation (if Verbalized by the Patient): Straight or Heterosexual Spiritual care concerns: No Comments At time of signature, I have reviewed and agree with nursing past medical, surgical, social and family history unless otherwise noted. Please see nursing chart for further information. There is no relevant family history pertinent to the presenting complaint Exam Narrative: GENERAL: Well-appearing CHEST: Speaks in full sentences. No respiratory distress. HEART: Regular rate and rhythm. Normal and equal peripheral pulses. EXTREMITIES: Right wrist has normal strength and sensation, normal range of motion with flexion/extension but endorses pain with movement. Tender to dorsal wrist. no swelling or ecchymosis, No open wounds, or obvious deformity; ali gnment normal, pulse palpable and equal bilaterally, skin warm, dry, pink. Capillary refill less than 3 seconds. SKIN: Warm, dry, no rash. NEURO: Alert and oriented x3. PSYCH: Normal mood and affect Course Course Emergency Course: Patient is aware of diagnosis, understands and agrees to treatment plan. Anticipatory guidance given. Patient agrees to follow-up as directed and is aware of reasons to seek care at the emergency department. Portions of this record may have been created with voice recognition software Level of Care: Express Care Visit Vital Signs Vital signs: Vital Signs Temperature 98 F 10/27/24 15:59 Pulse Rate 96 10/27/24 15:59 Respiratory Rate 18 10/27/24 15:59 Blood Pressure 140/104 H 10/27/24 15:59 Pulse Oximetry 99 10/27/24 15:59 Oxygen Delivery Room Air 10/27/24 15:59 Temperature 98 F 10/27/24 15:59 Pulse Rate 96 10/27/24 15:59 Respiratory Rate 18 10/27/24 15:59 Blood Pressure 140/104 H 10/27/24 15:59 Pulse Oximetry 99 10/27/24 15:59 Oxygen Delivery Room Air 10/27/24 15:59 Reviewed MDM - Extremity Injury (Upper) MDM Narrative Medical decision making narrative: Discussed physical exam findings and xray. PRABHJOT applied. Advised supportive measures and signs/symptoms to go to the ER. Pt is appropriate for outpt treatment and f/u. Differential Diagnosis Differential diagnosis: Likely sprain and strain of wrist and fracture of wrist Imaging Data Radiologist's impression: Patient: Huong Weems : 1980 MR#: [id number] Age: 43 Acct:[id number] Loc: [facility] ADM Date: 10/27/24Attending Dr: Ordering Physician: Cortney Hou APRN Date of Service: 10/27/24 Procedure(s): XR wrist RT min 3V Accession Number(s): [id number] cc: Luz, Naeem Rowe MD; Cortney Hou APRN~ HISTORY: HYPER SUPINATION, ANT/POS PAIN COMPARISON: None TECHNIQUE: 3 views of the right wrist were performed. FINDINGS: No acute fracture is identified. The carpal arcs are intact. Bone mineralization is age-appropriate. No significant soft tissue swelling is noted. No radiopaque foreign body is identified. IMPRESSION: No acute fracture or dislocation. Discharge Plan Discharge Clinical Impression: Strain of right wrist Patient Disposition: Home Condition: Stable Instructions: Wrist Sprain (ED) Additional Instructions: Rest and elevate the right hand. Activity as tolerated; avoid lifting, pushing, pulling or throwing until symptoms are fully resolved Apply ice 15-20 minute intervals several times a day Keep it wrapped with PRABHJOT or use a soft wrist splint Motrin 800mg every 8 hours, alternate with Tylenol 1000mg every 8 hours as needed Follow up with your primary care provider as needed in 1 week go to the ER for worsening symptoms or concerns Patient Language: Vincentian Prescriptions: No Action No Home Medications Follow-up/Referrals: Luz,Naeem Rowe M.D. [Primary Care Provider] - Time of Disposition: 16:27
== END 2024-10-27 16:34 | disposition home or self-care (01) ==
PROVIDERS: Emergency Provider Nurse Practitioner Family; PCP Family Medicine
DX: S66.911A Strain of unspecified muscle, fascia and tendon at wrist and hand level, right hand, initial encounter (principal); W29.8XXA Contact with other powered hand tools and household machinery, initial encounter; E78.00 Pure hypercholesterolemia, unspecified
CPT/HCPCS: 73110; 99213; G0463

== ENCOUNTER 2025-01-29 15:00 | Emergency (ER) | payer OTHER, MEDICAID, SELFPAY ==
--- OUTSIDE RECORDS SUMMARY | 2015-11-15 08:11 | XMS_ITS | Continuity of Care Document ---
Author Organization [facility] Address [address] [place] [address] Phone Care Team Providers Care Braiding Machine Operator Name Role Phone Zackery Galdamez MD Unavailable Unavailable Procedures Procedure Date OFFICE/OUTPATIENT VISIT, EST II 011 URINALYSIS, AUTO W/SCOPE OFFICE/OUTPATIENT VISIT, EST II 011 OFFICE/OUTPATIENT VISIT, EST OFFICE/OUTPATIENT VISIT, EST X-RAY EXAM OF FOOT 3 VIEWS OFFICE/OUTPATIENT VISIT, EST URINALYSIS, AUTO W/SCOPE OFFICE/OUTPATIENT VISIT, EST OFFICE/OUTPATIENT VISIT, EST II 010 LIPID PANEL CARDIAC HEPATIC FUNCTION PANEL LIVER ROUTINE VENIPUNCTURE HEP B VACCINE, ADULT, IM IMMUNIZATION ADMIN TDAP VACCINE >7 IM Adacel IMMUNIZATION ADMIN HEP B VACCINE, ADULT, IM IMMUNIZATION ADMIN, EACH ADD OFFICE/OUTPATIENT VISIT, EST CHORIONIC GONADOTROPIN ASSAY ROUTINE VENIPUNCTURE OFFICE/OUTPATIENT VISIT, EST Advance Directives Directive Yes / No Effective Date File Name No Information Encounters Encounter Description Practice Location Reason(s) For Visit Diagnoses Date Provider Providers Copied on Encounter [facility], [address], [place], [id number], tel:[phone] [facility] No Information Rudolph Vizcarra. [address], [place], [place], [address], [place]. tel:[phone] OFFICE/OUTPAT IENT VISIT, [facility], [address], [place], [place], [address], [place] tel:[phone] [facility] No Information Chang Barr. [address], [place], [place], [address], [place]. tel:[phone] Referring Provider: Cortney Dillon, [address], [place], [address] . tel:[phone] OFFICE/OUTPAT IENT VISIT, [facility], [address], [place], [place], [address], [place] tel:[phone] [facility] No Information Phani Love. [address], [place], [place], [address], [place]. tel:[phone] Referring Provider: Ivan Campos, [address], [place], [address] . tel:[phone] OFFICE/OUTPAT IENT VISIT, [facility], [address], [place], [place], [address], [place] tel:[phone] [facility] No Information Rudolph Vizcarra. [address], [place], [place], [address], [place]. tel:[phone] Referring Provider: Zackery Dillon, [address], [place], [address] . tel:[phone] OFFICE[facility]OUTPAT [facility]ENT VISIT, [facility], [address], [place], [place], [address], [place] tel:[phone] [facility] No Information Rudolph Vizcarra. [address], [place], [place], [address], [place]. tel:[phone] Referring Provider: Zackery Dillon, [address], [place], [address] . tel:[phone] OFFICE/OUTPAT IENT VISIT, [facility], [address], [place], [place], [address], [place] tel:[phone] [facility] No Information Rudolph Vizcarra. [address], [place], [place], [address], [place]. tel:[phone] Referring Provider: Zackery Dillon, [address], [place], [address] . tel:[phone] OFFICE/OUTPAT IENT VISIT, [facility], [address], [place], [place], [address], [place] tel:[phone] [facility] No Information No Information OFFICE/OUTPAT IENT VISIT, [facility], [address], [place], [place], [address], [place] tel:[phone] [facility] No Information Rudolph Vizcarra. [address], [place], [place], [address], [place]. tel:[phone] Referring Provider: Zackery Dillon, [address], [place], [address] . tel:[phone] [facility], [address], [place], [place], [address], [place] tel:[phone] [facility] No Information Rudolph Vizcarra. [address], [place], [place], [address], [place]. tel:[phone] [facility], [address], [place], [place], [address], [place] tel:[phone] [facility] No Information Rudolph Vizcarra. [address], [place], [place], [address], [place]. tel:[phone] OFFICE/OUTPAT IENT VISIT, [facility], [address], [place], [place], [address], [place] tel:[phone] [facility] No Information Rudolph Vizcarra. [address], [place], [place], [address], [place]. tel:[phone] Referring Provider: Zackery Dillon, [address], [place], [address] . tel:[phone] OFFICE/OUTPAT IENT VISIT, [facility], [address], [place], [place], [address], [place] tel:[phone] [facility] No Information No Information Family History Family Member Type Diagnosis Age At Onset No Information Immunizations Vaccine Date Status Comments measles, mumps and rubella v irus vaccine administered Source: Source Unspe cified DTaP (younger than 7 yrs) administered So urce: Source Unspecified poliovirus vaccine, live, oral administer ed Source: Source Unspecified DTaP (younger than 7 yrs) administered So urce: Source Unspecified poliovirus vaccine, live, oral administer ed Source: Source Unspecified MMR administered Source: Source Unspecified DTaP (younger than 7 yrs) administered So urce: Source Unspecified poliovirus vaccine, live, oral administer ed Source: Source Unspecified DTaP (younger than 7 yrs) administered So urce: Source Unspecified poliovirus vaccine, live, oral administer ed Source: Source Unspecified DTaP (younger than 7 yrs) administered So urce: Source Unspecified Payers Payer name Insurance type Covered libertarian ID Authoriza tion(s) SELF PAY PATIENT 09 Social History Type Description Quantity Date Captured Comments Sex Female Smoking Status No Information Chief Complaint And Reason For Visit No Information Reason For Referral Reason For Referral No Information History Of Present Illness Encounter Date Complaint History Of Prese nt Illness No Information Functional Status Date Functional Assessmen t No Information Instructions Date Instruction Additional Infor mation No Information Assessments Type Assessment Date No Information Patient Care Teams Name Effective Dates (start - stop) Status Members No Information
--- OUTSIDE RECORDS SUMMARY | 2015-11-15 08:11 | XMS_ITS | Continuity of Care Document ---
Author Organization [facility] Address [address] [place] [address] Phone Care Team Providers Care Service Architect Name Role Phone Zackery Galdamez MD Unavailable [...] Diagnoses Date Provider Providers Copied on Encounter [facility], [address], [place], [id number], tel:[phone] [facility] No Information Rudolph Vizcarra. [address], [place], [place], [address], [place]. tel:[phone] OFFICE/OUTPAT IENT VISIT, [facility], [address], [place], [place], [address], [place] tel:[phone] [facility] No Information Chang Barr. [address], [place], [place], [address], [place]. tel:[phone] Referring Provider: Cortney Dillon, [address], [place], [address] . tel:[phone] OFFICE/OUTPAT IENT VISIT, [facility], [address], [place], [place], [address], [place] tel:[phone] [facility] No Information Phani Love. [address], [place], [place], [address], [place]. tel:[phone] Referring Provider: Ivan Campos, [address], [place], [address] . tel:[phone] OFFICE/OUTPAT IENT VISIT, [facility], [address], [place], [place], [address], [place] tel:[phone] [facility] No Information Rudolph Vizcarra. [address], [place], [place], [address], [place]. tel:[phone] Referring Provider: Zackery Dillon, [address], [place], [address] . tel:[phone] OFFICE/OUTPAT IENT VISIT, [facility], [address], [place], [place], [address], [place] tel:[phone] [facility] No Information Rudolph Vizcarra. [address], [place], [place], [address], [place]. tel:[phone] Referring Provider: Zackery Dillon, [address], [place], [address] . tel:[phone] OFFICE/OUTPAT IENT VISIT, [facility], [address], [place], [place], [address], [place] tel:[phone] [facility] No Information Rudolph Vizcarra. [address], [place], [place], [address], [place]. tel:[phone] Referring Provider: Zackery Dillon, [address], [place], [address] . tel:[phone] OFFICE/OUTPAT IENT VISIT, [facility], [address], [place], [place], [address], [place] tel:[phone] [facility] No Information No Information OFFICE/OUTPAT IENT VISIT, [facility], [address], [place], [place], [address], [place] tel:[phone] [facility] No Information Rudolph Vizcarra. [address], [place], [place], [address], [place]. tel:[phone] Referring Provider: Zackery Dillon, [address], [place], [address] . tel:[phone] [facility], [address], [place], [place], [address], [place] tel:[phone] [facility] No Information Rudolph Vizcarra. [address], [place], [place], [address], [place]. tel:[phone] [facility], [address], [place], [place], [address], [place] tel:[phone] [facility] No Information Rudolph Vizcarra. [address], [place], [place], [address], [place]. tel:[phone] OFFICE/OUTPAT IENT VISIT, [facility], [address], [place], [place], [address], [place] tel:[phone] [facility] No Information Rudolph Vizcarra. [address], [place], [place], [address], [place]. tel:[phone] Referring Provider: Zackery Dillon, [address], [place], [address] . tel:[phone] OFFICE/OUTPAT IENT VISIT, [facility], [address], [place], [place], [address], [place] tel:[phone] [facility] No Information No Information Family History Family [...]
--- OUTSIDE RECORDS SUMMARY | 2019-03-13 11:37 | XMS_ITS | Continuity of Care Document ---
Author Organization [facility] Address [address] [place] [address] Phone Care Team Providers Care Podiatrist Name Role Phone Dane Hodge MD Unavailable Unavailable Allergies, Adverse Reactions, Alerts Substance Reaction Status Criticality No Known Allergies Active No Inform ation Medications Medication Instructions Dosage Effective Dates (start - stop) Status Comments Tablet 28 mg iron-800 mcg - Active DHA Algal-900 300 mg capsule - Active sertraline 50 mg tablet take 1 tablet by oral route every day 50 MG - Active norethindrone (contraceptive) 0.35 mg tablet take 1 tablet by oral route every day 1.00 tablet - Active Procedures Procedure Date OFFICE/OUTPATIENT VISIT EST RADJANELL CROWLEY ARTHG RS&I MRI ANY JT UXTR C+ MATRL OFFICE/OUTPATIENT VISIT EST RADEX CARLINE COMPL MINIMUM 2 VIEWS 018 OFFICE/OUTPATIENT VISIT EST RADEX WRST COMPL MINIMUM 3 VIEWS 2017 OFFICE/OUTPATIENT VISIT EST OFFICE/OUTPATIENT VISIT EST OFFICE/OUTPATIENT VISIT EST OFFICE/OUTPATIENT VISIT NEW Advance Directives Directive Yes / No Effective Date File Name No Information Encounters Encounter Description Practice Location Reason(s) For Visit Diagnoses Date Provider Providers Copied on Encounter [facility] , [address], [place], [address], [place] tel:[phone] [facility] No Information 9 Naveen Vela. [address], [place], [place], [address] . tel: [phone] OFFICE/OUTPAT IENT VISIT EST [facility] , [address], [place], [address], [place] tel:[phone] [facility] Body mass index (BMI) 29.0-29.9, adultBiceps tendinitis of left upper extremity Sep- 9 Naveen Vela. [address], [place], [place], [address] . tel: [phone] Referring Provider: Naeem Escobar, [address], [place], [address]. tel:[phone] [facility] , [address] [address], [place], [address], [place] tel:[phone] [facility] Pain in left shoulder Sep-0 9 [facility]. [address], [place], [place], [address] . tel: [phone] Referring Provider: Dane Hodge, [address], [place], [address]. tel:[phone] [facility] , [address] [address], [place], [address], [place] tel:[phone] [facility] Left shoulder pain, unspecified chronicity 9 Naveen Vela. [address], [place], [place], [address] . tel: [phone] OFFICE/OUTPAT IENT VISIT EST [facility] , [address], [place], [address], [place] tel:[phone] [facility] Left shoulder pain, unspecified chronicity 8 Naveen Vela. [address], [place], [place], [address] . tel: [phone] OFFICE/OUTPAT IENT VISIT EST [facility] , [address], [place], [address], [place] tel:[phone] [facility] Left shoulder pain, unspecified chronicity 8 Naveen Vela. [address] [facility], [place], [place], [address] . tel: [phone] OFFICE/OUTPAT IENT VISIT EST [facility] , [address] [address], [place], [address], [place] [phone] [facility] De Quervain's disease (tenosynoviti s)Pain in right wrist [address] [facility] [place], [place], [address] . tel: [phone] OFFICE/OUTPAT IENT VISIT EST [facility] , [address] [address], [place], [address], [place] [phone] [facility] Quervain's disease (tenosynoviti s) 8 Yola Pierre. [address] [facility], [place], [place], [address] . tel: [phone] OFFICE/OUTPAT IENT VISIT EST [facility] , [address] [address], [place], [address], [place] tel:[phone] [facility] Quervain's disease (tenosynoviti s) 8 Yola Pierre. [address] [facility], [place], [place], [address] . tel: [phone] OFFICE/OUTPAT IENT VISIT NEW [facility] , [address] [address], [place], [address], [place] [phone] [facility] Quervain's disease (tenosynoviti s) 8 Yola Pierre. [address] [facility], [place], [place], [address] . tel: [phone] Family History Family Member Type Diagnosis Age At Onset Mother Problem (finding) Alive and well Father Problem (finding) Diabetes Mother Problem (finding) hypertension Father Problem (finding) stroke Payers Payer name Insurance type Covered green party ID Authoriza tion(s) No Information Social History Type Description Quantity Date Captured Comments Alcohol Use Details Unknown Caffeine Use Details Unknown Tobacco Use Status No Information Smoking Status No Information Sex Female Chief Complaint And Reason For Visit No Information Reason For Referral Reason For Referral No Information Plan Of Treatment Date Type Action Status Goal Dietary management education , guidance, and counseling completed Referral Ordered: RADEX CARLINE ARTHG RS&I LT shoulder Appointment date/timeframe: 05/24/2018 ordered Referral Ordered: MRI ANY JT UXTR C+ MATRL LT shoulder Appointment date/timeframe: 05/24/2018 ordered Referral Ordered: RADEX CARLINE COMPL MINIMUM 2 VIEWS LT ordered Referral Ordered: RADEX WRST COMPL MINIMUM 3 VIEWS LT wrist ordered History Of Present Illness Encounter Date Complaint History Of Prese nt Illness No Information Functional Status Date Functional Assessmen t No Information Instructions Date Instruction Additional Infor mation Call for increase in pain Relate d to Biceps tendinitis of left upper extremity Discussed treatment options Rela troy to Biceps tendinitis of left upper extremity Weight bearing status as directe d. Related to Biceps tendinitis of left upper extremity Dietary management e ducation, guidance, and counseling Related to Body mass index (BMI) 29.0-29.9, adult Discussed treatment options Rela troy to Left shoulder pain, unspecified chronicity Weight bearing status as directe d. Related to Left shoulder pain, unspecified chronicity Discussed treatment options Rela troy to Left shoulder pain, unspecified chronicity Weight bearing status as directe d. Related to Left shoulder pain, unspecified chronicity Rest, ice and elevate. Related t o Left shoulder pain, unspecified chronicity Activity as tolerated. Related t o De Quervain's disease (tenosynovitis) Discussed treatment options. Rel ated to De Quervain's disease (tenosynovitis) Assessments Type Assessment Date No Information Patient Care Teams Name Effective Dates (start - stop) Status Members No Information
--- OUTSIDE RECORDS SUMMARY | 2019-03-13 11:37 | XMS_ITS | Continuity of Care Document ---
Author Organization [facility] Address [address] [place] [address] Phone Care Team Providers Care Plant Wrapper Name Role Phone Dane Hodge MD Unavailable Unavailable Allergies, Adverse Reactions, Alerts Substance Reaction Status Criticality No Known Allergies Active No Inform ation Medications Medication Instructions Dosage Effective Dates (start - stop) Status Comments norethindrone (contraceptive) 0.35 mg tablet take 1 tablet by oral route every day 1.00 tablet - Active sertraline 50 mg tablet take 1 tablet by oral route every day 50 MG - Active DHA Algal-900 300 mg capsule - Active Tablet 28 mg iron-800 mcg - Active Procedures Procedure Date OFFICE/OUTPATIENT VISIT EST KERRIE CROWLEY ARTHG RS&I MRI ANY JT UXTR [...] Providers Copied on Encounter [facility] , [address], [place], [address], [place] tel:[phone] [facility] No Information 9 Naveen Vela. [address], [place], [place], [id number] . tel: [phone] OFFICE/OUTPAT IENT VISIT EST [facility] , [address], [place], [address], [place] tel:[phone] [facility] Body mass index (BMI) 29.0-29.9, adultBiceps tendinitis of left upper extremity Sep- 9 Naveen Vela. [address], [place], [place], [id number] . tel: [phone] Referring Provider: Naeem Escobar, [address], [place], [address]. tel:[phone] [facility] , [address] [address], [place], [address], [place] tel:[phone] [facility] Pain in left shoulder Sep-0 9 [facility]. [address], [place], [place], [id number] . tel: [phone] Referring Provider: Dane Hodge, [address], [place], [address]. tel:[phone] [facility] , [address] [address], [place], [address], [place] tel:[phone] [facility] Left shoulder pain, unspecified chronicity 9 Naveen Vela. [address], [place], [place], [id number] . tel: [phone] OFFICE/OUTPAT IENT VISIT EST [facility] , [address], [place], [address], [place] tel:[phone] [facility] Left shoulder pain, unspecified chronicity 8 Naveen Vela. [address], [place], [place], [id number] . tel: [phone] OFFICE/OUTPAT IENT VISIT EST [facility] , [address] [facility] [address], [place], [address], [place] tel:[phone] [facility] Left shoulder pain, unspecified chronicity 8 Naveen Vela. [address] [facility] [address], [place], [place], [id number] . tel: [phone] OFFICE/OUTPAT IENT VISIT EST [facility] , [address] [facility] [address], [place], [address], [place] [phone] [facility] De Quervain's disease (tenosynoviti s)Pain in right wrist 8 Yola Pierre. [address] [facility] [place], [place], [id number] . tel: [phone] OFFICE/OUTPAT IENT VISIT EST [facility] , [address] [address], [place], [address], [place] [phone] [facility] Quervain's disease (tenosynoviti s) 8 Yola Pierre. [address] [facility], [place], [place], [id number] . tel: [phone] OFFICE/OUTPAT IENT VISIT EST [facility] , [address] [address], [place], [address], [place] tel:[phone] [facility] Quervain's disease (tenosynoviti s) 8 Yola Pierre. [address] [facility], [place], [place], [id number] . tel: [phone] OFFICE/OUTPAT IENT VISIT NEW [facility] , [address] [address], [place], [address], [place] [phone] [facility] Quervain's disease (tenosynoviti s) 8 Yola Pierre. [address] [facility], [place], [place], [address] . tel: [phone] Family History Family Member Type Diagnosis Age At Onset Mother Problem (finding) Alive and well Father Problem (finding) Diabetes Mother Problem (finding) hypertension Father Problem (finding) stroke Payers Payer name Insurance type Covered constitution party ID Authoriza tion(s) No Information Social [...] Information Instructions Date Instruction Additional Infor mation Weight bearing status as directe d. Related to Biceps tendinitis of left upper extremity Discussed treatment options Rela troy to Biceps tendinitis of left upper extremity Call for increase in pain Relate d to Biceps tendinitis of left upper extremity Dietary management e ducation, guidance, and counseling Related to Body mass index (BMI) 29.0-29.9, adult Weight bearing status as directe d. Related to Left shoulder pain, unspecified chronicity Discussed treatment options Rela troy to Left shoulder pain, unspecified chronicity Rest, ice and elevate. Related t o Left shoulder pain, unspecified chronicity Weight bearing status as directe d. Related to Left shoulder pain, unspecified chronicity Discussed treatment options Rela troy to Left shoulder pain, unspecified chronicity Activity as tolerated. Related t o De Quervain's disease (tenosynovitis) Discussed treatment options. Rel ated to De Quervain's disease (tenosynovitis) Assessments Type Assessment Date No Information Patient Care Teams Name Effective Dates (start - stop) Status Members No Information
[2025-01-29 15:06] VITALS: BP 147/94; PULSE 86; RESP 14; TEMP 36.9; O2SAT 100
--- OUTSIDE RECORDS SUMMARY | 2025-01-29 15:15 | XMS_ITS | Clinical Summary ---
Author Organization [facility]Care Care Team Providers Care Agriculture Research Director Name Role Phone Naeem Escobar MD Primary Care Provider [phone] Allergies No known active allergies Medications 2/iron/folic acid/om3 (COMPLETE DHA ORAL) Take 1 tablet by mouth [...] 05/27/2018 Assessment & Plan (05/27/2018 2:04 PM GEAR SHAPER): The patient presents for her first evaluation [...] 05/27/2018 Assessment & Plan (05/27/2018 2:06 PM GEAR SHAPER): The patient had a soft abdomen abut severe tenderness in her RLQ oan LLQ. I did not feel any masses and she has had a CCK and Appy. Unclear of this etiology. I will send her to the ER> I told the patient she needs highway worker and gave her the name of the crm dynamics developer and the number and she will call. If labs and stool tests are normal, she will need to be seen at [facility] for her diarrhea where she can receive tertiary care. 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 12/16/2016 Visit for screening 12/07/2016 Encounters Date Type Department Care Team Description 11/01/2024 Orders Only [facility] Health Information Management [address] [place] [address] Scanning, Provider from Last 3 Months Surgical History Surgery Date Site/Laterality Comments APPENDECTOMY [...] CDT Gender Identity Female 06/11/2021 1:02 PM GEAR SHAPER Sexual Orientation Straight 06/11/2021 1: 02 PM GEAR SHAPER Obstetrics History Para Term AB IAB SAB [...] 3:53 PM CDT Height 167.6 cm (5' 6) 09/26/2022 3:53 PM CDT Body Mass Index 27.44 09/26/2022 3:53 PM CDT Plan of Treatment Health Maintenance Due Date Last Done Comments Breast Cancer Screening-Mammogram 1980 Cervical Cancer Screening 1980 Hepatitis C Screening 1980 DTaP/Tdap/Td Vaccine (1 - Tdap) 1992 Varicella Vaccines (1 of 2 - 13+ 2-dose series) 1994 Hepatitis B Screening 11/15/1999 Regular Well Visit/Exam 18-64 11/15/1999 HPV Vaccines (1 - 3-dose SCDM series) 2008 Depression Screening 08/27/2019 08/26/2018, 08/26/2018, 06/28/2018, Additional history exists Influenza Vaccine Discontinued Pneumococcal vaccine <65 Aged Out No longer eligible based on patient's age to complete this topic Procedures Procedure Name Priority Date/Time Associated Diagnosis Comments SCAN - RADIOLOGY/IMAGING 11/01/2024 9:05 PM CDT from Last 3 Months Results * SCAN - RADIOLOGY/IMAGING (11/01/2024 9:05 PM CDT) Anatomical Region Laterality Modality Other us Provider Scanning Final Result from Last 3 Months Insurance [facility] CHOICE PLUS [facility] HMO/PPO Address: [facility] [address] [place] [address] [facility] [place] [address] [facility] HMO/PPO Address: [facility] [address] [place] [address] [facility] Care Teams Agriculture Research Director Relationship Specialty Start Date End Date Naeem Escobar [place] [address] PCP - General Family Medicine 08/25/18
--- OUTSIDE RECORDS SUMMARY | 2025-01-29 15:15 | XMS_ITS | Clinical Summary ---
Author Organization [facility] Address [address] [place] [address] Phone Care Team Providers Care Glaucoma Specialist Name Role Phone KwesiShaylee gill Primary Care Provider [phone] Allergies No known active allergies Medications VIT [...] often do you attend chur ch or zoroastrian services? More than 4 times per year 09/23/2018 Do you belong to any clubs o r organizations such as mosque groups, unions, fraternal or athletic groups, or [...] on file Legal Sex Female 7:11 PM PHYSICAL THERAPIST CLINIC DIRECTOR Gender Identity Not on file Sexual Orientation [...] 7:54 AM CDT Height 167.6 cm (5' 6) 12/20/2018 7:54 AM CDT Body Mass Index 30.18 12/20/2018 7:54 AM CDT Plan of Treatment Health Maintenance Due Date Last Done Comments DTAP/TDAP/TD VACCINES (1 - Tdap) 2000 HEPATITIS B VACCINES (1 of 3 - 19+ 3-dose series) 11/05 HPV/Cotest (21-29) 2002 HPV VACCINES (1 - 3-dose SCDM series) 2008 CERVICAL CANCER SCREENING 11/15/2011 HPV/Cotest (30-65) 11/15/2011 PAP SMEAR 11/15/2011 BREAST CANCER SCREENING 2021 INFLUENZA VACCINE (#1) 2025 Medical Devices Implanted Type Area Special Education Supervisor Device Identifier Shelf Expiration Date Model / Serial / Lot Barrier Seprafilm 5x6in [id number] - [id number] Implanted:Qty : 1 on 01/08/2017 by Shaylee Chavira DO at [facility] Adhesion Barrier N/A: Uterus [employer] [id number] 03/06/2019 [id number] / [id number] 120 / [id number] Hemostatic Surgicel 4x8in 1950 - [id number] Implanted:Qty : 1 on 12/20/2018 by Shaylee Chavira DO at [facility] Hemostatic N/A: Abdomen [employer] 03/06/20201951 / / [id number] Insurance [facility] OPTIONS PPO [id number] RX EXPRESS SCRIPTS Express RX EXPRESS SCRIPTS Express RX OPTUM RX Member Subscriber Plan / Payer (Ef fective 2018-Present) Name:Huong Weems Relation to Subscriber:Not on file Name:Huong Weems Subscriber ID:Not on file Date of :1980 Payer ID:Not on file Group ID:[facility] Type:RX Commercial Address: [address] Advance Directives For more information, please contact: [phone] * Full Code (Latest Code Status on [...] 5:02 PM 12/16/2016 8:49 PM Care Teams Glaucoma Specialist Relationship Specialty Start Date End Date Shaylee Chavira DO PCP - General Obstetrics and Gynecology 08/09/16
--- NOTE | 2025-01-29 15:31 | ED_ITS ---
HPI - URI/Sore Throat General Chief Complaint: Upper Respiratory Infection Stated Complaint: Sinus Problem/Sore Throat/Ear Pain Source: patient and RN notes reviewed Mode of arrival: ambulatory Limitations: no limitations History of Present Illness HPI Narrative: 44 y/o female presented for c/o cough, sore throat, ear pressure, nasal congestion and drainage. Onset 3 days. Endorses Left ear pressure worse than rig ht, hoarse voice, and Also says she felt sob walking up the stairs today. denies ear drainage, tinnitus, dizziness, n/v/d/f/c. Takes daily zyrtec and nasal spray. Says she gets sinus infections at least yearly, and often turns into pneumonia. MD elicited complaint: cough Related Data Home Medications ?Medication ?Instructions ?Recorded ?Confirmed ?Last Taken ?Type escitalopram oxalate 20 mg tablet mg 01/29/25 Unknown History Allergies Allergy/AdvReac Type Severity Reaction Status Date / Time No Known Allergies Allergy Verified 01/29/25 15:12 Review of Systems Review of Systems: CONSTITUTIONAL: Endorses malaise, body aches, chills, sweats, fever EYES: Denies visual changes, redness, or discharge ENT: Reports rhinorrhea, congestion, sinus pain, otalgia, sore throat CARDIOVASCULAR: Denies chest pain, palpitations, edema RESPIRATORY: Reports cough, post nasal drainage. Denies dyspnea GASTROINTESTINAL: Denies abdominal pain, nausea, vomiting, diarrhea SKIN: Denies rash or itching NEUROLOGIC: Denies headache PMFSH Past Medical History Medical History History of anxiety Hypercholesterolemia Kidney stones, calcium oxalate Overweight (BMI 25.0-29.9) Surgical History Surgical History History of History of mandibular surgery History of shoulder surgery Hx laparoscopic cholecystectomy S/P appendectomy Family History Family History Mother Hypertension Family history of kidney stones Father Cerebrovascular accident Family history of type 2 diabetes mellitus Grandparent Cerebrovascular accident Family history of malignant neoplasm of breast Other Family history of allergic disorder Family history of malignant neoplasm Social History Social History Smoking status: Never smoker Alcohol intake: never Substance use: never Substance use type: does not use Lack of Transportation: No Lack of Food: Never True Current Housing: I Have Housing Concerned About Future Housing: No Difficulty Paying Gas/Electric Bills: No Difficulty Paying for Meds: No Currently Unemployed: No Education: Decline to Answer Difficulty w/ Childcare or Family Care: No Living arrangements: with family Additional living arrangements comments: CHILDREN Gender identity (if verbalized by the patient): Female Sexual Orientation (if Verbalized by the Patient): Straight or Heterosexual Spiritual care concerns: No Exam Narrative: GENERAL: Ill-appearing, nontoxic no acute distress. EYES: conjunctivae clear ENT: Mucous membranes moist. Bilateral TMs erythematous, bulging and intact, L>R; canals not erythematous, no drainage Oropharynx erythematous without lesions or exudate, no drooling, no hoarseness, no trismus, uvula midline. No tripod positioning, muffled voice, soft palate or pharyngeal wall bulging NECK: Supple. bilat anterior cervical lymphadenopathy CHEST: Clear to auscultation, breath sounds equal. No respiratory distress, speaks in full sentences. HEART: Regular rate and rhythm. No murmur heard. SKIN: Warm, dry, no rash. NEURO: Alert and oriented x3. PSYCH: Normal mood and affect Course Course Emergency Course: Patient is aware of diagnosis, understands and agrees to treatment plan. Anticipatory guidance given. Patient agrees to follow-up as directed and is aware of reasons to seek care at the emergency department. Portions of this record may have been created with voice recognition software Level of Care: Express Care Visit Vital Signs Vital signs: Vital Signs Temperature 98.5 F 01/29/25 15:06 Pulse Rate 86 01/29/25 15:06 Respiratory Rate 14 01/29/25 15:06 Blood Pressure 147/94 H 01/29/25 15:06 Pulse Oximetry 100 01/29/25 15:06 Oxygen Delivery Room Air 01/29/25 15:06 Temperature 98.5 F 01/29/25 15:06 Pulse Rate 86 01/29/25 15:06 Respiratory Rate 14 01/29/25 15:06 Blood Pressure 147/94 H 01/29/25 15:06 Pulse Oximetry 100 01/29/25 15:06 Oxygen Delivery Room Air 01/29/25 15:06 reviewed MDM - URI/Sore Throat MDM Narrative Medical decision making narrative: Discussed physical exam findings Consistent with bilateral AOM , negative strep and COVID. Reviewed RX. Advised supportive measures and signs/symptoms to go to the ER. Pt is appropriate for outpt treatment and f/u. Differential Diagnosis Differential diagnosis: Likely upper respiratory infection, sinusitis and viral infection Discharge Plan Discharge Clinical Impression: Otitis media Patient Disposition: Home Condition: Stable Instructions: Antibiotic Form, Ear Infection (ED) Additional Instructions: Take antibiotics as directed. Recommendations: continue antihistamine and Flonase nasal spray, 1 spray in each nostril once daily until symptoms improve Symptomatic treatment includes: rest, fluids, and increase humidity of the air at home. Tylenol 1000mg every 8 hours as needed to reduce fever, pain Please schedule a follow-up visit with your personal physician If your symptoms persist, change or worsen significantly, go to the emergency department for further evaluation. Patient Language: Luxembourgish Prescriptions: New prednisone 20 mg tablet 40 mg PO DAILY 5 Days Qty: 10 0RF albuterol sulfate 90 mcg/actuation HFA aerosol inhaler 2 inh inhalation QID PRN (Reason: shortness of breath or wheezing) Qty: 8.5 0RF amoxicillin-pot clavulanate 875-125 mg tablet 1 tablet PO Q12H 7 Days Qty: 14 0RF No Action escitalopram oxalate 20 mg tablet Follow-up/Referrals: Harms,Naeem Rowe M.D. [Primary Care Provider] Time of Disposition: 15:43
[2025-01-29 15:33] LABS: EDCOVIDSCREEN Negative (Negative); EDSTREPNEGPOS1 Negative (Negative)
== END 2025-01-29 15:50 | disposition home or self-care (01) ==
PROVIDERS: Emergency Provider Nurse Practitioner Family; PCP Family Medicine
DX: H66.93 Otitis media, unspecified, bilateral (principal); Z20.822 Contact with and (suspected) exposure to COVID-19; E78.00 Pure hypercholesterolemia, unspecified; F41.9 Anxiety disorder, unspecified
CPT/HCPCS: 87081; 87426; 87880; 99213; G0463

== ENCOUNTER 2025-05-08 14:56 | Emergency (ER) | payer BC, MEDICAID, SELFPAY ==
[2025-05-08 15:19] VITALS: BP 164/82; PULSE 84; RESP 18; TEMP 36.8; O2SAT 99
[2025-05-08 15:33] LABS: EDCOVIDSCREEN Negative (Negative); EDINFLUASCREEN Negative (Negative); EDINFLUBSCREEN Negative (Negative)
--- OUTSIDE RECORDS SUMMARY | 2025-05-08 16:19 | XMS_ITS | Clinical Summary ---
Author Organization [facility] Address [address] [place] [address] Phone Care Team Providers Care Deputy Sheriff Generalist Name Role Phone KwesiShaylee gill Primary Care Provider [phone] Allergies No known active allergies Medications VIT [...] often do you attend chur ch or mu-ism services? 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 Gender Identity Not on file Sexual Orientation [...] (#1) 2025 Medical Devices Implanted Type Area Cargo And Container Inspector Device Identifier Shelf Expiration Date Model / Serial / Lot Barrier Seprafilm 5x6in [id number] - [id number] 120 Implanted:Qty : 1 on 01/08/2017 by Shaylee Chavira DO at [facility] Adhesion Barrier N/A: Uterus [employer] [id number] 03/06/2019 [id number] / [id number] 120 / [id number] Hemostatic Surgicel 4x8in 1950 - [id number] Implanted:Qty : 1 on 12/20/2018 by Shaylee Chavira DO at [facility] Hemostatic N/A: Abdomen [employer] 03/06/20201951 / / [id number] Insurance [facility] OPTIONS PPO [id number] RX EXPRESS SCRIPTS Express RX EXPRESS SCRIPTS Express RX OPTUM RX Member Subscriber Plan / Payer (Ef fective 2018-Present) Name:Huong Weems Relation to Subscriber:Not on file Name:uHong Weems Subscriber ID:Not on file Date of :1980 Payer ID:Not on file Group ID:[facility] Type:RX Commercial Address: [address] Advance Directives For more information, please contact: [phone] * Full Code (Latest Code Status on [...] 5:02 PM 12/16/2016 8:49 PM Care Teams Deputy Sheriff Generalist Relationship Specialty Start Date End Date Shaylee Chavira DO PCP - General Obstetrics and Gynecology 08/09/16
--- OUTSIDE RECORDS SUMMARY | 2025-05-08 16:19 | XMS_ITS | Clinical Summary ---
Author Organization [facility] HealthCare Care Team Providers Care Field Cane Scaler Helper Name Role Phone Naeem Escobar MD Primary Care Provider [phone] Allergies No known active allergies Medications 2/iron/folic [...] 05/27/2018 Assessment & Plan (05/27/2018 2:04 PM ENGLISH DRAWER): The patient presents for her first evaluation [...] 05/27/2018 Assessment & Plan (05/27/2018 2:06 PM ENGLISH DRAWER): The patient had a soft abdomen abut severe tenderness in her RLQ oan LLQ. I did not feel any masses and she has had a CCK and Appy. Unclear of this etiology. 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 If labs and stool tests are normal, she will need to be seen at [facility] for her diarrhea where she can [...] CDT Gender Identity Female 06/11/2021 1:02 PM ENGLISH DRAWER Sexual Orientation Straight 06/11/2021 1: 02 PM ENGLISH DRAWER Obstetrics History Para Term AB IAB SAB [...] patient's age to complete this topic Insurance [facility] CHOICE PLUS [facility] Member Subscriber Plan / Payer (Ef fective 2016-Present) Name:Sarah Weems Relation to Subscriber:Spouse Name:SELIN WEEMS Date of :1980 (Home) [address]: [address] [place] [id number] Payer ID:[id number] Type:Not on file Address: [address] [facility] Care Teams Field Cane Scaler Helper Relationship Specialty Start Date End Date Naeem Escobar MD [address] [place] [address] PCP - General Family Medicine 08/25/18
--- NOTE | 2025-05-08 16:41 | ED.GENADULT ---
HPI - General Adult General Chief complaint: Upper Respiratory Infection Stated complaint: Headache/Chest Congestion/Cough Source: patient Mode of arrival: ambulatory Limitations: no limitations History of Present Illness HPI narrative: Patient presents for evaluation of respiratory symptoms for last week. She reports postnasal drainage, with deep cough, SOB and wheezing. She has a history of recurrent pneumonia and this feels similar. She does not smoke or vape. 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 She has been taking zyrtec for her symptoms. No fever, chills, nausea, vomiting, diarrhea. Related Data Home Medications ?Medication ?Instructions ?Recorded ?Confirmed ?Last Taken ?Type escitalopram oxalate 20 mg tablet mg 01/29/25 Unknown History Allergies Allergy/AdvReac Type Severity Reaction Status Date / Time No Known Allergies Allergy Verified 05/08/25 15:16 Review of Systems Review of Systems: CONSTITUTIONAL: Denies fever, chills, or sweats. EYES: Denies visual changes, redness, or discharge. ENT: Reports postnasal drainage. Denies sore throat, or otalgia. CARDIOVASCULAR: Denies chest pain, palpitations, or edema. RESPIRATORY: reports cough, wheezing, shortness of breath GASTROINTESTINAL: Denies abdominal pain, nausea, vomiting, or diarrhea. GENITOURINARY: Denies dysuria or hematuria. SKIN: Denies rash or itching. MUSCULOSKELETAL: Denies back pain, joint pain, or myalgia. NEUROLOGIC: Denies headache, numbness, dizziness, or weakness. PSYCHIATRIC: Denies anxiety or depression. [facility] Past Medical History Medical History Overweight (BMI 25.0-29.9) Kidney stones, calcium oxalate Hypercholesterolemia History of anxiety Surgical History Surgical History History of shoulder surgery History of History of mandibular surgery S/P appendectomy Hx laparoscopic cholecystectomy Family History Family History Mother Hypertension Family history of kidney stones Father Cerebrovascular accident Family history of type 2 diabetes mellitus Grandparent Cerebrovascular accident Family history of malignant neoplasm of breast Other Family history of allergic disorder Family history of malignant neoplasm Social History Social History Smoking status: Never smoker Alcohol intake: never Substance use: never Substance use type: does not use Lack of Transportation: No Lack of Food: Never True Current Housing: I Have Housing Concerned About Future Housing: No Difficulty Paying Gas/Electric Bills: No Difficulty Paying for Meds: No Currently Unemployed: No Education: Decline to Answer Difficulty w/ Childcare or Family Care: No Living arrangements: with family Additional living arrangements comments: CHILDREN Gender identity (if verbalized by the patient): Female Sexual Orientation (if Verbalized by the Patient): Straight or Heterosexual Spiritual care concerns: No Exam Narrative: GENERAL: Well-appearing, well-nourished, and in no acute distress. HEAD: Normocephalic, atraumatic. EYES: PERRLA and EOMI. ENT: Nares clear, no rhinorrhea or epistaxis. Mucous membranes moist. Oropharynx without tonsillar hypertrophy exudate or other lesions. Bilateral TMs pearly sanderson nonbulging NECK: Supple. No adenopathy or masses. No carotid bruits or JVD CHEST: cough present on exam. Clear to auscultation. No respiratory distress. No wheezes rales or rhonchi HEART: Regular rate and rhythm. No murmur heard. Normal peripheral pulses. ABDOMEN: Soft, nontender, nondistended, normal active bowel sounds. EXTREMITIES: Normal range of motion. No edema. SKIN: Warm, dry, no rash. NEURO: No focal deficits. Alert and oriented x3. PSYCH: Normal mood and affect. Course Course Emergency Course: This is a 44-year-old female who presented for evaluation of respiratory symptoms. She has a history of recurrent pneumonia and this feels similar. COVID and influenza were negative. Unfortunately we do not have metallurgical engineering technician to do an x-ray today. I did offer to transfer her to 1 of her other facilities for chest x-ray. She declined. We agreed mutually to treat empirically for pneumonia with azithromycin and Augmentin. Also discharge with prednisone and albuterol. Increase hydration. Twci-fzt-rzhivgb agents for symptom management. Follow up with primary provider. Go to the ER for worsening symptoms. Patient in agreement with plan of care. Level of Care: Express Care Visit Vital Signs Vital signs: Vital Signs Temperature 36.8 C 12/02/25 15:19 Pulse Rate 84 05/08/25 15:19 Respiratory Rate 18 05/08/25 15:19 Blood Pressure 164/82 H 05/08/25 15:19 Pulse Oximetry 99 05/08/25 15:19 Oxygen Delivery Room Air 05/08/25 15:19 Temperature 36.8 C 05/08/25 15:19 Pulse Rate 84 05/08/25 15:19 Respiratory Rate 18 05/08/25 15:19 Blood Pressure 164/82 H 05/08/25 15:19 Pulse Oximetry 99 05/08/25 15:19 Oxygen Delivery Room Air 05/08/25 15:19 MDM Differential Diagnosis Differential Diagnosis: COVID versus influenza versus bronchitis versus pneumonia versus other Lab Data Labs: Lab Results 05/08/25 Range/Units 15:31 POC Influenza A Ag Negative (Negative) POC Influenza B Ag Negative (Negative) POC SARS CoV-2 Ag Negative (Negative) Discharge Plan Discharge Clinical Impression: At high risk for pneumonia Patient Disposition: Home Condition: Stable Instructions: Antibiotic Form, Pneumonia (ED) Patient Language: Macedonian Prescriptions: New amoxicillin-pot clavulanate 875-125 mg tablet 1 tablet PO Q12H Qty: 20 0RF azithromycin 250 mg tablet See Rx Instructions .ROUTE .COMPLEX Qty: 6 0RF Rx Instructions: For 250 mg dose pack: take 500 mg today (day 1), then 250 mg for 4 days (days 2-5) prednisone 50 mg tablet 50 mg PO DAILY Qty: 5 0RF albuterol sulfate [Ventolin HFA] 90 mcg/actuation HFA aerosol inhaler 2 puff inhalation QID Qty: 8.5 0RF No Action escitalopram oxalate 20 mg tablet Follow-up/Referrals: Harms,Naeem Rowe M.D. [Primary Care Provider] Time of Disposition: 16:40
== END 2025-05-08 16:43 | disposition home or self-care (01) ==
PROVIDERS: Emergency Provider Nurse Practitioner; PCP Family Medicine
DX: R05.9 Cough, unspecified (principal); R06.02 Shortness of breath; R06.2 Wheezing; Z20.822 Contact with and (suspected) exposure to COVID-19; Z87.01 Personal history of pneumonia (recurrent); E78.00 Pure hypercholesterolemia, unspecified; F41.9 Anxiety disorder, unspecified
CPT/HCPCS: 87426; 87804; 99213; G0463

== ENCOUNTER 2025-05-30 09:53 | Emergency (ER) | payer BC, MEDICAID, SELFPAY ==
--- OUTSIDE RECORDS SUMMARY | 2025-05-30 09:55 | XMS_ITS | Clinical Summary ---
Author Organization [facility] HealthCare Care Team Providers Care Supervisor Corduroy Cutting Name Role Phone Naeem Escobar MD Primary Care Provider [phone] Allergies No known active allergies Medications 2/iron/folic [...] 05/27/2018 Assessment & Plan (05/27/2018 2:04 PM KNITTED GOODS SHAPER): The patient presents for her first [...] 05/27/2018 Assessment & Plan (05/27/2018 2:06 PM KNITTED GOODS SHAPER): The patient had a soft abdomen abut severe tenderness in her RLQ oan LLQ. I did not feel any masses and she has had a CCK and Appy. Unclear of this etiology. I will send her to the ER> I told the patient she needs high school hvac r instructor and gave her the name of the millwork estimator and the number and she will call. If labs and stool tests are normal, she will need to be seen at [facility] for her diarrhea where she can receive tertiary care. 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 12/16/2016 Visit for screening 12/07/2016 Encounters Date Type Department Care Team Description 05/10/2025 Orders Only [facility] [facility] [place] [facility] [address] [place] [address] Scanning, Provider from Last 3 Months Surgical [...] CDT Gender Identity Female 06/11/2021 1:02 PM KNITTED GOODS SHAPER Sexual Orientation Straight 06/11/2021 1: 02 PM KNITTED GOODS SHAPER Obstetrics History Para Term AB IAB [...] Priority Date/Time Associated Diagnosis Comments SCAN - LABS 05/10/2025 9:05 PM KNITTED GOODS SHAPER from Last 3 Months Results * SCAN - LABS (05/10/2025 9:05 PM KNITTED GOODS SHAPER) Provider Scanning Final Result from Last 3 Months Insurance [facility] CHOICE PLUS [facility] Member Subscriber Plan / Payer (Ef fective 2016-Present) Name:Sarah Weems Relation to Subscriber:Spouse Name:SELIN WEEMS Date of :1980 (Home) Address: [address] [place] [address] Payer ID:[id number] Type:Not on file Address: [address] [facility] Care Teams Supervisor Corduroy Cutting Relationship Specialty Start Date End Date Naeem [place] [address] PCP - General Family Medicine 08/25/18
--- OUTSIDE RECORDS SUMMARY | 2025-05-30 09:55 | XMS_ITS | Clinical Summary ---
Author Organization [facility] Address [address] [place] [address] Phone Care Team Providers Care Market Research Manager Name Role Phone KwesiShaylee gill Primary Care Provider [phone] Allergies No known active allergies Medications VIT [...] often do you attend chur ch or orthodox services? 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 Gender Identity Not on file Sexual Orientation [...] 19+ 3-dose series) 11/05 HPV/Cotest (21-29) 2002 CERVICAL CANCER SCREENING 11/15/2011 HPV/Cotest (30-65) 11/15/2011 PAP SMEAR 11/15/2011 BREAST CANCER SCREENING 2021 INFLUENZA VACCINE (#1) 2025 HPV VACCINES (No Doses Required) Completed Medical Devices Implanted Type Area Director Rehabilitation Program Device Identifier Shelf Expiration Date Model / Serial / Lot Barrier Seprafilm 5x6in [id number] - [id number] Implanted:Qty : 1 on 01/08/2017 by Shaylee Chavira DO at [facility] Adhesion Barrier N/A: Uterus [employer] [id number] 03/06/2019 [id number] / [id number] 120 / [id number] Hemostatic Surgicel 4x8in 1950 - [id number] Implanted:Qty : 1 on 12/20/2018 by Shaylee Chavira DO at [facility] Hemostatic N/A: Abdomen [employer] 03/06/[id number] / / [id number] Insurance [facility] OPTIONS PPO [id number] RX EXPRESS SCRIPTS Express RX EXPRESS SCRIPTS Express RX OPTUM RX Member Subscriber Plan / Payer (Ef fective 2018-Present) Name:Huong Weems Relation to Subscriber:Not on file Name:Huong Weems Subscriber ID:Not on file Date of :1980 Payer ID:Not on file Group ID:[facility] Type:RX Commercial Address: [address] Advance Directives For more information, please contact: [phone] * Full Code (Latest Code Status on [...] 5:02 PM 12/16/2016 8:49 PM Care Teams Market Research Manager Relationship Specialty Start Date End Date Shaylee Chavira DO PCP - General Obstetrics and Gynecology 08/09/16
[2025-05-30 09:57] VITALS: BP 174/90; PULSE 93; RESP 20; TEMP 37.4; O2SAT 99
[2025-05-30 10:28] LABS: EDSTREPNEGPOS1 Negative (Negative)
--- NOTE | 2025-05-30 10:51 | ED_ITS ---
HPI - URI/Sore Throat General Chief Complaint: Upper Respiratory Infection Stated Complaint: throat pain Time Seen by Provider: 05/30/25 10:51 Source: patient, RN notes reviewed and old records reviewed Mode of arrival: ambulatory Limitations: no limitations History of Present Illness HPI Narrative: 44-year-old female who presets to express care with complaints of cough for several week with today stating sore throat for past few days with some low grade temperatures. Patient reports that she was treated on 05/08/2025 for pneumonia with antibiotics and steroids. Patient reports that she has used her inhaler for her cough and has taken some Tylenol. MD elicited complaint: cough, sore throat, rhinorrhea and nasal congestion Onset (ago): day(s) (2 dys of sore throat and fatigue with cough for several weeks.) Consistency: constant Pain scale (0-10): 5 Able to tolerate fluids by mouth: Yes Treatments prior to arrival: acetaminophen and other (inhaler) Related Data Home Medications ?Medication ?Instructions ?Recorded ?Confirmed ?Last Taken ?Type escitalopram oxalate 20 mg tablet mg 01/29/25 Unknown History Allergies Allergy/AdvReac Type Severity Reaction Status Date / Time No Known Allergies Allergy Verified 05/08/25 15:16 Review of Systems Review of Systems: CONSTITUTIONAL: Reports malaise, chills, sweats, or fever. EYES: Denies visual changes, redness, or discharge. ENT: Reports rhinorrhea, congestion, no sinus pain, no otalgia and + sore throat. CARDIOVASCULAR: Denies chest pain, palpitations, or edema. RESPIRATORY: Reports cough.? Denies dyspnea. GASTROINTESTINAL: Denies abdominal pain, nausea, vomiting, diarrhea SKIN: Denies rash or itching. MUSCULOSKELETAL: Denies myalgia. NEUROLOGIC: Denies headache. All systems reviewed & are unremarkable except as noted in HPI and below PMFSH Past Medical History Medical History Overweight (BMI 25.0-29.9) Kidney stones, calcium oxalate Hypercholesterolemia History of anxiety Surgical History Surgical History History of shoulder surgery History of History of mandibular surgery S/P appendectomy Hx laparoscopic cholecystectomy Family History Family History Mother Hypertension Family history of kidney stones Father Cerebrovascular accident Family history of type 2 diabetes mellitus Grandparent Cerebrovascular accident Family history of malignant neoplasm of breast Other Family history of allergic disorder Family history of malignant neoplasm Social History Social History Smoking status: Never smoker Alcohol intake: never Substance use: never Substance use type: does not use Lack of Transportation: No Lack of Food: Never True Current Housing: I Have Housing Concerned About Future Housing: No Difficulty Paying Gas/Electric Bills: No Difficulty Paying for Meds: No Currently Unemployed: No Education: Decline to Answer Difficulty w/ Childcare or Family Care: No Living arrangements: with family Additional living arrangements comments: CHILDREN Gender identity (if verbalized by the patient): Female Sexual Orientation (if Verbalized by the Patient): Straight or Heterosexual Spiritual care concerns: No Comments At time of signature, agree with nursing past medical, surgical, social and family history. There is no relevant family history pertinent to the presenting complaint Exam Narrative: GENERAL: Well-appearing, well-nourished, and in no acute distress. HEAD: Normocephalic EYES: PERRLA, conjunctivae clear ENT: Nares clear, turbinates edematous and erythematous, clear discharge. Mucous membranes moist. TM pearly sanderson with dull light reflex bilaterally; no tragal tenderness. Oropharynx erythematous without lesions. Tonsils not enlarged and without exudate, no drooling, no hoarseness, no trismus, uvula midline, scant post nasal drainage noted.. NECK: Supple. No lymphadenopathy CHEST: Clear to auscultation, breath sounds equal. No wheezing, rhonchi, rales, or stridor. No respiratory distress, speaks in full sentences. cough, SAO2 99% on room air HEART: Regular rate and rhythm. No murmur heard. SKIN: Warm, dry, no rash. NEURO: Alert and oriented x3. PSYCH: Normal mood and affect Course Course Level of Care: Express Care Visit Vital Signs Vital signs: Vital Signs Temperature 37.4 C 05/30/25 09:57 Pulse Rate 93 05/30/25 09:57 Respiratory Rate 20 05/30/25 09:57 Blood Pressure 174/90 H 05/30/25 09:57 Pulse Oximetry 99 05/30/25 09:57 Oxygen Delivery Room Air 05/30/25 09:57 Temperature 37.4 C 05/30/25 09:57 Pulse Rate 93 05/30/25 09:57 Respiratory Rate 20 05/30/25 09:57 Blood Pressure 174/90 H 05/30/25 09:57 Pulse Oximetry 99 05/30/25 09:57 Oxygen Delivery Room Air 05/30/25 09:57 reviewed MDM [facility] Narrative Medical decision making narrative: 44 year old female presents to clinic with complaints of persistent cough and sore throat with strep screen negative with culture sent. Will treat with Flonase nasal spray and Prednisone for cough. Patient is agreeable to plan of care. Anticipatory guidance and reasons to seek care in the ED reviewed with patient voicing understanding. Differential Diagnosis Differential Diagnosis: Differential diagnostic considerations for upper respiratory infection include upper respiratory infection, croup, otitis media, sinusitis, viral infection, bronchitis, influenza, pharyngitis, strep, uvulitis.? Lab Data [facility] Lab Attestation statement: I personally reviewed the patient's lab results. Lab results narrative: strep screen negative, culture sent Labs: Lab Results 05/30/25 Range/Units 10:20 POC Grp A Strep Screen Negative (Negative) reviewed Critical Care Time Critical Care Time Critical Care Time: No Discharge Plan Discharge Clinical Impression: Cough, persistent URI (upper respiratory infection) Qualifiers: URI type: unspecified URI Qualified Code(s): J06.9 - Acute upper respiratory infection, unspecified Pharyngitis Qualifiers: Pharyngitis/tonsillitis etiology: unspecified etiology Qualified Code(s): J02.9 - Acute pharyngitis, unspecified Patient Disposition: Home Condition: Stable Instructions: Pharyngitis (ED), Upper Respiratory Infection (ED) Additional Instructions: Increase fluids especially juices and water Ipat-dhu-zrzpleg cough and cold medicine of your choice for your symptoms Zyrtec Claritin or Chanda daily include Coricidin brand decongestant Continue your inhaler/nebulizer as directed Steroids as directed--take with food heat to the face 20-30 minutes 4-6 times a day for pain Salt water gargles, throat lozenges or throat sprays as desired nasal spray Flonase as ordered Your strep test today was negative. A throat culture will be sent to the laboratory for further testing. IF the test is positive, you will receive a phone call within 48 hours and an appropriate antibiotic will be initiated at that time. If your symptoms persist, change or worsen significantly before you can contact your personal physician then please, without delay, go to the emergency department for further evaluation. Follow-up with PCP in 7-10 days or sooner if needed Follow up with PCP soon in regards to your blood pressure which is elevated above threshold for referral. Blood pressure above 120/80 may indicate pre- hypertension.174/90 Patient Language: American Prescriptions: New fluticasone propionate [Flonase Allergy Relief] 50 mcg/actuation spray,suspension 1 spray intranasal DAILY Qty: 16 0RF Rx Instructions: administer into each nostril prednisone 20 mg tablet 40 mg PO DAILY 5 Days Qty: 10 0RF Rx Instructions: take with food No Action escitalopram oxalate 20 mg tablet amoxicillin-pot clavulanate 875-125 mg tablet 1 tablet PO Q12H Qty: 20 0RF azithromycin 250 mg tablet See Rx Instructions .ROUTE .COMPLEX Qty: 6 0RF Rx Instructions: For 250 mg dose pack: take 500 mg today (day 1), then 250 mg for 4 days (days 2-5) prednisone 50 mg tablet 50 mg PO DAILY Qty: 5 0RF albuterol sulfate [Ventolin HFA] 90 mcg/actuation HFA aerosol inhaler 2 puff inhalation QID Qty: 8.5 0RF Follow-up/Referrals: Harms,Naeem Rowe M.D. [Primary Care Provider] Time of Disposition: 11:04 Quality Mark Coma Scale Eyes: Open Verbal: Oriented and Alert Motor: Follows Commands Cally Coma Total Score: 15
== END 2025-05-30 11:05 | disposition home or self-care (01) ==
PROVIDERS: Emergency Provider Registered Nurse; PCP Family Medicine
DX: R05.3 Chronic cough (principal); J02.9 Acute pharyngitis, unspecified; J06.9 Acute upper respiratory infection, unspecified; E78.00 Pure hypercholesterolemia, unspecified; F41.9 Anxiety disorder, unspecified
CPT/HCPCS: 87081; 87880; 99213; G0463